=== PATIENT | male | born 1945 | race Caucasian/White ===

== ENCOUNTER 2020-07-05 10:22 | Observation (INO) | payer MEDICARE ==
--- NOTE | 2020-07-05 10:57 | ED ---
ENT HPI - General Chief complaint: ENT Stated complaint: esophagus issues Time Seen by Provider: 07/05/20 10:31 Source: patient Mode of arrival: ambulatory Limitations: no limitations - History of Present Illness Initial comments: 75-year-old male status history of alchlasia, HTN, PE on coumadin presenting today for chief complaint of difficulty swallowing both solids and liquids. Patient states he had been treated for GERD in 2016 and had an upper endoscopy performed by Dr. Bianchi who dilated the GE patietn states he remember he was hospitalized secondary to not being able to eat for 6 days following the surgery-- he was then referred to Dr. Edwards in [place] who diagnosed her with achalasia an underwent a robotic procedure which they are unsure of the name of the procedure. They are not sure of the hospital where he was treated at. He states since that surgery he has been able to swallow liquids and solid just fine. For the past 3.5 weeks he has had issues with both solids and liquids. he states he has regurgitated a week old piece of steak before, he now is drinking nutritional shakes which he states at times he has been able to hold down a small portion of the shake. Patient denies fevers, chest pain, SOB, abdominal pain, vomiting, diarrhea. Admits to regurgitating food and concern that he is becoming dehydarted. Patient has no additional complaints. Patient appears well on arrival no acute distress. - Related Data Home Medications Medication Instructions Recorded Confirmed Furosemide [Lasix] 20 mg PO BID 02/25/14 07/05/20 Tamsulosin [Flomax] 0.4 mg PO BID 02/25/14 07/05/20 lisinopriL 40 mg PO QAM 05/13/15 07/05/20 Warfarin Sodium [Coumadin] 2 mg PO DAILY 10/13/16 07/05/20 Dutasteride 0.5 mg PO DAILY@1200 07/05/20 07/05/20 Metoclopramide [Reglan] 5 mg PO ACHS 07/05/20 07/05/20 Mirabegron [Myrbetriq] 50 mg PO DAILY 07/05/20 07/05/20 Tolterodine ER [Detrol LA] 4 mg PO DAILY 07/05/20 07/05/20 Previous Rx's Medication Instructions Recorded HYDROcodone/APAP 7.5-325MG [[place] 1 tab PO Q6HR PRN #28 tab 10/11/16 7.5-325] Allergies Allergy/AdvReac Type Severity Reaction Status Date / Time ciprofloxacin [From Cipro] Allergy Rash/Hives Verified 07/05/20 11:45 ciprofloxacin HCl Allergy Rash/Hives Verified 07/05/20 11:45 [From Cipro] Review of Systems ROS Statement: Those systems with pertinent positive or pertinent negative responses have been documented in the HPI. ROS Other: All systems not noted in ROS Statement are negative. Past Medical History Past Medical History: Atrial Fibrillation, Cancer, Eye Disorder, GERD/Reflux, Hearing Disorder / Deafness, Hypertension, Osteoarthritis (OA), Pulmonary Embolus (PE), Skin Disorder Additional Past Medical History / Comment(s): Hx Colon RESECTION FOR MASS. Skin Cancer. HIATAL HERNIA. HAS LENS IMPLANTS AHMET EYES. History of Any Multi-Drug Resistant Organisms: None Reported Past Surgical History: Appendectomy, Back Surgery, Bowel Resection, Hernia Repair, Joint Replacement Additional Past Surgical History / Comment(s): REVISION TOTAL LT HIP. AHMET KNEES & HIPS REPLACEMENTS. Fusion of lower back, neck fusion. BOWEL RES: PRECANCEROUS MASS. AHMET. cataracts. Ahmet leg LASER VEIN SURG. Removal of skin cancer from scalp and chest. surgery for fx nose. rt shoulder rotator cuff. EGD X2, LAST 08/2016.10-11-16 BROCK FUNDOPLICATION Past Anesthesia/Blood Transfusion Reactions: No Reported Reaction Past Psychological History: No Psychological Hx Reported Smoking Status: Never smoker Past Alcohol Use History: Occasional Past Drug Use History: None Reported - Past Family History Sister(s) Family Medical History: Cancer Mother Family Medical History: Cancer Additional Family Medical History / Comment(s): BLADDER Father Family Medical History: Cancer Additional Family Medical History / Comment(s): LEUKEMIA Brother(s) Family Medical History: Cancer Additional Family Medical History / Comment(s): MULTIPLE MYELOMA General Exam - General Exam Comments Initial Comments: General: The patient is awake and alert, in no distress Eye: Pupils are equal, round and reactive to light, extra-ocular movements are intact. No nystagmus. There is normal conjunctiva bilaterally. No signs of icterus. Ears, nose, mouth and throat: There are moist mucous membranes and no oral lesions. Neck: The neck is supple, there is no tenderness or JVD. Cardiovascular: There is a regular rate and rhythm. No murmur, rub or gallop is appreciated. Respiratory: Lungs are clear to auscultation, respirations are non-labored, breath sounds are equal. No wheezes, stridor, rales, or rhonchi. Gastrointestinal: Soft, non-distended, non-tender abdomen without masses or organomegaly noted. There is no rebound or guarding present. Musculoskeletal: Normal ROM, no tenderness. Strength 5/5. Sensation intact. Radial pulses equal bilaterally 2+. Neurological: A&O x 3. CN II-XII intact grossly, There are no obvious motor or sensory deficits. Coordination appears grossly intact. Speech is normal. Skin: Skin is warm and dry and no rashes or lesions are noted. Psychiatric: Cooperative, appropriate mood & affect, normal judgment. Limitations: no limitations Course Vital Signs 07/05/20 07/05/20 07/05/20 10:23 12:35 12:52 Temperature 98 F Pulse Rate 65 56 L 56 L Respiratory 18 18 18 Rate Blood Pressure 175/89 135/63 O2 Sat by Pulse 96 97 100 Oximetry Medical Decision Making - Medical Decision Making 75-year-old male presenting for dysphasia. Patient's history of achalasia. Patient has robotic procedure 4 years ago that seemed to help. New symptoms x 3 weeks. Patient labs reveal mild hypokalemia and an elevated INR. Denies bleeding, or dark stools. Ptaient given IVF and replaced K+ via IV since unable to tolerate PO (order changed). Patient case discussed with Dr Vega who is agreeable to admission to medicine with surgical consult. Ptaient agreeable and prefers admission at this time. - Lab Data Result diagrams: 07/05/20 11:07 07/05/20 11:07 Lab Results 07/05/20 07/05/20 07/05/20 Range/Units 11:07 11:07 11:07 WBC 11.0 H (3.8-10.6) k/uL RBC 5.12 (4.30-5.90) m/uL Hgb 15.2 (13.0-17.5) gm/dL Hct 48.1 (39.0-53.0) % MCV 93.8 (80.0-100.0) fL MCH 29.7 (25.0-35.0) pg MCHC 31.7 (31.0-37.0) g/dL RDW 13.3 (11.5-15.5) % Plt Count 271 (150-450) k/uL Neutrophils % 75 % Lymphocytes % 16 % Monocytes % 5 % Eosinophils % 2 % Basophils % 1 % Neutrophils # 8.2 H (1.3-7.7) k/uL Lymphocytes # 1.7 (1.0-4.8) k/uL Monocytes # 0.5 (0-1.0) k/uL Eosinophils # 0.2 (0-0.7) k/uL Basophils # 0.1 (0-0.2) k/uL PT 65.5 H (9.0-12.0) sec INR 6.4 H* (<1.2) APTT 45.0 H (22.0-30.0) sec Sodium 138 (137-145) mmol/L Potassium 3.3 L (3.5-5.1) mmol/L Chloride 95 L (98-107) mmol/L Carbon Dioxide 33 H (22-30) mmol/L Anion Gap 10 mmol/L BUN 17 (9-20) mg/dL Creatinine 1.13 (0.66-1.25) mg/dL Est GFR (CKD-EPI)AfAm 72 (>60 ml/min/1.73 sqM) Est GFR (CKD-EPI)NonAf 63 (>60 ml/min/1.73 sqM) Glucose 99 (74-99) mg/dL Calcium 10.0 (8.4-10.2) mg/dL Total Bilirubin 1.5 H (0.2-1.3) mg/dL AST 29 (17-59) U/L ALT 14 (4-49) U/L Alkaline Phosphatase 149 H (38-126) U/L Total Protein 7.4 (6.3-8.2) g/dL Albumin 4.3 (3.5-5.0) g/dL Disposition Clinical Impression: Achalasia, Regurgitation of food, Hypokalemia, Supratherapeutic INR Disposition: ADMITTED IP TO THIS [facility] Condition: Stable Is patient prescribed a controlled substance at d/c from ED?: No Time of Disposition: 11:51 Decision to Admit Reason: Admit from EC Decision Date: 07/05/20 Decision Time: 11:51
[2020-07-05] MEDS ORDERED: SODIUM CHLORIDE 0.9% 500 ML 500 ML IV ONE (11:03)
[2020-07-05] MEDS: SODIUM CHLORIDE 0.9% 1,000 ML IV SCH ×2 (11:10→23:23)
[2020-07-05 11:18] LABS: HCT 48.1 % (39.0-53.0); HGB 15.2 gm/dL (13.0-17.5); MCH 29.7 pg (25.0-35.0); MCHC 31.7 g/dL (31.0-37.0); MCV 93.8 fL (80.0-100.0); Platelet Count 271 k/uL (150-450); RBC 5.12 m/uL (4.30-5.90); RDW 13.3 % (11.5-15.5)
[2020-07-05 11:19] LABS: Basophils # (A) 0.1 k/uL (0-0.2); Basophils % (A) 1 %; Eosinophils # (A) 0.2 k/uL (0-0.7); Eosinophils % (A) 2 %; Lymphocytes # (A) 1.7 k/uL (1.0-4.8); Lymphocytes % (A) 16 %; Monocytes # (A) 0.5 k/uL (0-1.0); Monocytes % (A) 5 %; Neutrophils # (A) 8.2 k/uL (1.3-7.7); Neutrophils % (A) 75 %
[2020-07-05 11:32] LABS: Albumin 4.3 g/dL (3.5-5.0); Potassium 3.3 mmol/L (3.5-5.1); Total Bilirubin 1.5 mg/dL (0.2-1.3); Total Protein 7.4 g/dL (6.3-8.2)
[2020-07-05] MEDS ORDERED: POTASSIUM CHLORIDE ER 10 MEQ TAB.ER.PRT PO STA (11:44)
[2020-07-05] MEDS ORDERED: NALOXONE 0.4 MG/ML 1 ML VIAL IV PRN (11:45)
[2020-07-05] MEDS ORDERED: POTASSIUM CHLORIDE 20 MEQ in WATER FOR INJECTION 1 100ML.BAG IVPB STA (12:10)
[2020-07-05 12:26] LABS: Prothrombin Time 65.5 sec (9.0-12.0)
[2020-07-05 12:30] LABS: INR 6.4 (<1.2)
[2020-07-05] MEDS ORDERED: ENALAPRILAT 1.25 MG/ML 1 ML VIAL IVP PRN (17:00)
[2020-07-05] MEDS ORDERED: HYDROcodone/APAP 7.5-325MG 1 EACH TAB PO PRN (17:04)
[2020-07-05] MEDS ORDERED: FUROSEMIDE 20 MG TAB PO SCH (18:00)
[2020-07-06 06:16] LABS: Prothrombin Time 64.7 sec (9.0-12.0)
[2020-07-06 06:19] LABS: ALT 11 U/L (4-49); AST 22 U/L (17-59); African American GFR (CKD) >90 (>60 ml/min/1.73 sqM); Albumin 3.5 g/dL (3.5-5.0); Alkaline Phosphatase 114 U/L (38-126); Anion Gap 9 mmol/L; Blood Urea Nitrogen 14 mg/dL (9-20); Calcium 9.1 mg/dL (8.4-10.2); Carbon Dioxide 26 mmol/L (22-30); Chloride 103 mmol/L (98-107); Glucose 75 mg/dL (74-99); Non-African American GFR(CKD) 84 (>60 ml/min/1.73 sqM); Potassium 3.2 mmol/L (3.5-5.1); Sodium 138 mmol/L (137-145); Total Bilirubin 1.3 mg/dL (0.2-1.3); Total Protein 6.1 g/dL (6.3-8.2)
[2020-07-06 06:33] LABS: INR 6.4 (<1.2)
[2020-07-06] MEDS ORDERED: Potassium Replacement Protocol 1 EACH MISC MISCELLANE PRN ×2 (06:41→08:00)
--- NOTE | 2020-07-06 07:59 | P.HPIM ---
History of Present Illness H&P Date: 07/06/20 Chief Complaint: Dysphagia This is a history of physical 75-year-old white male with known history of dysphagia for the last several weeks. He saw me last week and was scheduled for evaluation by general surgery but comes in yesterday stating that he is unable to tolerate solid food at all. His oral medication has not been tolerated either area and he can tolerate liquids. Hilary tosha has been tolerated. There is been significant weight loss over the last 3-4 weeks. He is admitted for appropriate evaluation. General surgery has not been consulted and I had a discussion with them as far as appropriate treatment. He is supposed had myotomy about 5 years ago done supposedly robotically. We will go ahead and consult thoracic surgery for possible evaluation. No fever or chills. No significant hematemesis or hematochezia. Regurgitation is otherwise noted. Ot herwise, he has an underlying history of atrial fibrillation. Coumadin level/INR is supratherapeutic. Review of Systems Constitutional: Denies chills, Denies fever Eyes: denies blurred vision, denies pain Ears, nose, mouth and throat: Denies headache, Denies sore throat Cardiovascular: Denies chest pain, Denies shortness of breath Gastrointestinal: Reports as per HPI Musculoskeletal: Denies myalgias Integumentary: Denies pruritus, Denies rash Psychiatric: Denies anxiety, Denies depression Past Medical History Past Medical History: Atrial Fibrillation, Cancer, Eye Disorder, GERD/Reflux, Hearing Disorder / Deafness, Hypertension, Osteoarthritis (OA), Pulmonary Embolus (PE), Skin Disorder Additional Past Medical History / Comment(s): Hx Colon RESECTION FOR MASS. Skin Cancer. HIATAL HERNIA. HAS LENS IMPLANTS SARAI EYES. History of Any Multi-Drug Resistant Organisms: None Reported Past Surgical History: Appendectomy, Back Surgery, Bowel Resection, Hernia Repa ir, Joint Replacement Additional Past Surgical History / Comment(s): REVISION TOTAL LT HIP. SARAI KNEES & HIPS REPLACEMENTS. Fusion of lower back, neck fusion. BOWEL RES: PRE CANCEROUS MASS. SARAI. cataracts. Sarai leg LASER VEIN SURG. Removal of skin cancer from scalp and chest. surgery for fx nose. rt shoulder rotator cuff. EGD X2, LAST 08/2016.10-11-16 BROCK FUNDOPLICATION Past Anesthesia/Blood Transfusion Reactions: No Reported Reaction Past Psychological History: No Psychological Hx Reported Smoking Status: Never smoker Past Alcohol Use History: Occasional Past Drug Use History: None Reported - Past Family History Sister(s) Family Medical History: Cancer Mother Family Medical History: Cancer Additional Family Medical History / Comment(s): BLADDER Father Family Medical History: Cancer Additional Family Medical History / Comment(s): LEUKEMIA Brother(s) Family Medical History: Cancer Additional Family Medical History / Comment(s): MULTIPLE MYELOMA Medications and Allergies Home Medications Medication Instructions Recorded Confirmed Type Furosemide [Lasix] 20 mg PO BID 02/25/14 07/05/20 History Tamsulosin [Flomax] 0.4 mg PO BID 02/25/14 07/05/20 History lisinopriL 40 mg PO QAM 05/13/15 07/05/20 History HYDROcodone/APAP 7.5-325MG [[place] 1 tab PO Q6HR PRN #28 tab 10/11/16 07/05/20 Rx 7.5-325] Warfarin Sodium [Coumadin] 2 mg PO DAILY 10/13/16 07/05/20 History Dutasteride 0.5 mg PO DAILY@1200 07/05/20 07/05/20 History Metoclopramide [Reglan] 5 mg PO ACHS 07/05/20 07/05/20 History Mirabegron [Myrbetriq] 50 mg PO DAILY 07/05/20 07/05/20 History Tolterodine ER [Detrol LA] 4 mg PO DAILY 07/05/20 07/05/20 History Allergies Allergy/AdvReac Type Severity Reaction Status Date / Time ciprofloxacin [From Cipro] Allergy Rash/Hives Verified 07/05/20 11:45 ciprofloxacin HCl Allergy Rash/Hives Verified 07/05/20 11:45 [From Cipro] Physical Exam Vitals: Vital Signs Temp Pulse Pulse Pulse Pulse Resp BP 07/06/20 03:00 98.1 F 62 18 07/05/20 21:00 97.8 F 67 67 18 07/05/20 14:28 98.1 F 62 16 07/05/20 13:39 62 18 07/05/20 13:26 98.1 F 76 16 07/05/20 12:52 56 L 18 135/63 07/05/20 12:35 56 L 18 07/05/20 10:23 98 F 65 18 175/89 BP Pulse Ox 07/06/20 03:00 178/82 97 07/05/20 21:00 159/87 98 07/05/20 14:28 162/97 98 07/05/20 13:39 07/05/20 13:26 96 07/05/20 12:52 100 07/05/20 12:35 97 07/05/20 10:23 96 Intake and Output 07/05/20 07/06/20 07/06/20 22:59 06:59 14:59 Intake Total 760 600 Balance 760 600 Intake: Intake, IV Titration 700 600 Amount Potassium Chloride 20 meq 100 In Water For Injection 1 100ml.bag @ 50 mls/hr IVPB ONCE STA Rx#: [id number] Sodium Chloride 0.9% 1, 600 600 000 ml @ 75 mls/hr IV . [id number] Rx#:[id number] Oral 60 0 Other: Voiding Method Toilet Toilet # Voids 1 1 Results CBC & Chem 7: 07/05/20 11:07 07/06/20 05:28 Labs: Abnormal Lab Results - Last 24 Hours (Table) 07/05/20 07/05/20 07/05/20 Range/Units 11:07 11:07 11:07 WBC 11.0 H (3.8-10.6) k/uL Neutrophils # 8.2 H (1.3-7.7) k/uL PT 65.5 H (9.0-12.0) sec INR 6.4 H* (<1.2) APTT 45.0 H (22.0-30.0) sec Potassium 3.3 L (3.5-5.1) mmol/L Chloride 95 L (98-107) mmol/L Carbon Dioxide 33 H (22-30) mmol/L Total Bilirubin 1.5 H (0.2-1.3) mg/dL Alkaline Phosphatase 149 H (38-126) U/L Total Protein (6.3-8.2) g/dL 07/06/20 07/06/20 Range/Units 05:28 05:28 WBC (3.8-10.6) k/uL Neutrophils # (1.3-7.7) k/uL PT 64.7 H (9.0-12.0) sec INR 6.4 H* (<1.2) APTT (22.0-30.0) sec Potassium 3.2 L (3.5-5.1) mmol/L Chloride (98-107) mmol/L Carbon Dioxide (22-30) mmol/L Total Bilirubin (0.2-1.3) mg/dL Alkaline Phosphatase (38-126) U/L Total Protein 6.1 L (6.3-8.2) g/dL Thrombosis Risk Factor Assmnt - Choose All That Apply Any of the Below Risk Factors Present?: Yes Each Factor Represents 1 point: Age 41-60 years Other Risk Factors: Yes Each Risk Factor Represents 2 Points: Age 61-74 years Each Risk Factor Represents 3 Points: Age 75 years or older Thrombosis Risk Factor Assessment Total Risk Factor Score: 6 Thrombosis Risk Factor Assessment Level: High Risk Assessment and Plan (1) Achalasia Current Visit: Yes Status: Acute Code(s): K22.0 - ACHALASIA OF CARDIA SNOMED Code(s): 37477492 (2) Regurgitation of food Current Visit: Yes Status: Acute Code(s): R11.10 - VOMITING, UNSPECIFIED SNOMED Code(s): 565465478 (3) Supratherapeutic INR Current Visit: Yes Status: Acute Code(s): R79.1 - ABNORMAL COAGULATION PROFILE SNOMED Code(s): 472103768 (4) Atrial fibrillation Current Visit: No Status: Acute Code(s): I48.91 - UNSPECIFIED ATRIAL FIBRILLATION SNOMED Code(s): 90880379 (5) Gastroesophageal reflux disease with esophagitis Current Visit: No Status: Acute Code(s): K21.0 - GASTRO-ESOPHAGEAL REFLUX DISEASE WITH ESOPHAGITIS SNOMED Code(s): 714642686 (6) History of pulmonary embolus (PE) Current Visit: No Status: Acute Code(s): Z86.711 - PERSONAL HISTORY OF PULMONARY EMBOLISM SNOMED Code(s): 266154195 Plan: Reconcile home medications and possibly switch to IV formulation secondary to achalasia. Check CBC CMP and PT/INR in a.m. Appreciate surgical input. Consult thoracic surgery. Prognosis is guarded secondary to his multiple comorbidities. See orders otherwise. Time with Patient: Greater than 30
[2020-07-06] MEDS ORDERED: ENALAPRILAT 1.25 MG/ML 1 ML VIAL IVP PRN (08:00)
--- NOTE | 2020-07-06 08:06 | P.GSCN ---
History of Present Illness Consult date: 07/06/20 History of present illness: 75-year-old male presents to the hospital with complaints of inability to tolerate solid or liquid oral intake. He states that this started approximately one month ago and has worsened. He states that approximately 4 years ago, he was diagnosed with achalasia. On examination of the patient's hospital records, it does appear that the patient did have a Heather fundoplication performed approximately 4 years ago and had multiple issues since that time requiring dilation and revision. He states after those issues, he sought care elsewhere and was diagnosed with achalasia. He states that he did undergo a procedure by a Dr. Moran that he does not recall but believes was robotic. He has tried to get in contact with Dr. Moran, however does not believe that he practices in the state anymore. He states that he has been unable to tolerate oral intake of solid foods and feels as if the food gets stuck and it is coughed up. He states liquid intake is similar, however he is able to tolerate shannon tosha and nutritional supplements. However, he has admitted to losing weight recently. He denies any significant changes in bowel function. He denies any fevers, chills, chest pain or shortness of breath. Review of Systems All systems: negative Past Medical History Past Medical History: Atrial Fibrillation, Cancer, Eye Disorder, GERD/Reflux, Hearing Disorder / Deafness, Hypertension, Osteoarthritis (OA), Pulmonary Embolus (PE), Skin Disorder Additional Past Medical History / Comment(s): Hx Colon RESECTION FOR MASS. Skin Cancer. HIATAL HERNIA. HAS LENS IMPLANTS SARAI EYES. History of Any Multi-Drug Resistant Organisms: None Reported Past Surgical History: Appendectomy, Back Surgery, Bowel Resection, Hernia Repair, Joint Replacement Additional Past Surgical History / Comment(s): REVISION TOTAL LT HIP. SARAI KNEES & HIPS REPLACEMENTS. Fusion of lower back, neck fusion. BOWEL RES: PRECANCEROUS MASS. SARAI. cataracts. Sarai leg LASER VEIN SURG. Removal of skin cancer from scalp and chest. surgery for fx nose. rt shoulder rotator cuff. EGD X2, LAST 08/2016.10-11-16 HEATHER FUNDOPLICATION Past Anesthesia/Blood Transfusion Reactions: No Reported Reaction Past Psychological History: No Psychological Hx Reported Smoking Status: Never smoker Past Alcohol Use History: Occasional Past Drug Use History: None Reported - Past Family History Sister(s) Family Medical History: Cancer Mother Family Medical History: Cancer Additional Family Medical History / Comment(s): BLADDER Father Family Medical History: Cancer Additional Family Medical History / Comment(s): LEUKEMIA Brother(s) Family Medical History: Cancer Additional Family Medical History / Comment(s): MULTIPLE MYELOMA Medications and Allergies Home Medications Medication Instructions Recorded Confirmed Type Furosemide [Lasix] 20 mg PO BID 02/25/14 07/05/20 History Tamsulosin [Flomax] 0.4 mg PO BID 02/25/14 07/05/20 History lisinopriL 40 mg PO QAM 05/13/15 07/05/20 History HYDROcodone/APAP 7.5-325MG [[place] 1 tab PO Q6HR PRN #28 tab 10/11/16 07/05/20 Rx 7.5-325] Warfarin Sodium [Coumadin] 2 mg PO DAILY 10/13/16 07/05/20 History Dutasteride 0.5 mg PO DAILY@1200 07/05/20 07/05/20 History Metoclopramide [Reglan] 5 mg PO ACHS 07/05/20 07/05/20 History Mirabegron [Myrbetriq] 50 mg PO DAILY 07/05/20 07/05/20 History Tolterodine ER [Detrol LA] 4 mg PO DAILY 07/05/20 07/05/20 History Allergies Allergy/AdvReac Type Severity Reaction Status Date / Time ciprofloxacin [From Cipro] Allergy Rash/Hives Verified 07/05/20 11:45 ciprofloxacin HCl Allergy Rash/Hives Verified 07/05/20 11:45 [From Cipro] Surgical - Exam Osteopathic Statement: *. No significant issues noted on an osteopathic structural exam other than those noted in the History and Physical/Consult. Vital Signs Temp Pulse Resp BP Pulse Ox 98 F 65 18 175/89 96 07/05/20 10:23 07/05/20 10:23 07/05/20 10:23 07/05/20 10:23 07/05/20 10:23 - General well nourished, no distress - Eyes PERRL - ENT no hearing loss - Neck trachea midline - Respiratory normal respiratory effort - Abdomen Soft, nontender, nondistended, no rebound, no guarding - Psychiatric oriented to time, oriented to person, oriented to place Results - Labs 07/05/20 11:07 07/06/20 05:28 Abnormal Lab Results - Last 24 Hours (Table) 07/05/20 07/05/20 07/05/20 Range/Units 11:07 11:07 11:07 WBC 11.0 H (3.8-10.6) k/uL Neutrophils # 8.2 H (1.3-7.7) k/uL PT 65.5 H (9.0-12.0) sec INR 6.4 H* (<1.2) APTT 45.0 H (22.0-30.0) sec Potassium 3.3 L (3.5-5.1) mmol/L Chloride 95 L (98-107) mmol/L Carbon Dioxide 33 H (22-30) mmol/L Total Bilirubin 1.5 H (0.2-1.3) mg/dL Alkaline Phosphatase 149 H (38-126) U/L Total Protein (6.3-8.2) g/dL 07/06/20 07/06/20 Range/Units 05:28 05:28 WBC (3.8-10.6) k/uL Neutrophils # (1.3-7.7) k/uL PT 64.7 H (9.0-12.0) sec INR 6.4 H* (<1.2) APTT (22.0-30.0) sec Potassium 3.2 L (3.5-5.1) mmol/L Chloride (98-107) mmol/L Carbon Dioxide (22-30) mmol/L Total Bilirubin (0.2-1.3) mg/dL Alkaline Phosphatase (38-126) U/L Total Protein 6.1 L (6.3-8.2) g/dL Diabetes panel 07/05/20 07/06/20 Range/Units 11:07 05:28 Sodium 138 138 (137-145) mmol/L Potassium 3.3 L 3.2 L (3.5-5.1) mmol/L Chloride 95 L 103 (98-107) mmol/L Carbon Dioxide 33 H 26 (22-30) mmol/L BUN 17 14 (9-20) mg/dL Creatinine 1.13 0.86 (0.66-1.25) mg/dL Glucose 99 75 (74-99) mg/dL Calcium 10.0 9.1 (8.4-10.2) mg/dL AST 29 22 (17-59) U/L ALT 14 11 (4-49) U/L Alkaline Phosphatase 149 H 114 (38-126) U/L Total Protein 7.4 6.1 L (6.3-8.2) g/dL Albumin 4.3 3.5 (3.5-5.0) g/dL Calcium panel 07/05/20 07/06/20 Range/Units 11:07 05:28 Calcium 10.0 9.1 (8.4-10.2) mg/dL Albumin 4.3 3.5 (3.5-5.0) g/dL Pituitary panel 07/05/20 07/06/20 Range/Units 11: 05:28 Sodium 138 138 (137-145) mmol/L Potassium 3.3 L 3.2 L (3.5-5.1) mmol/L Chloride 95 L 103 (98-107) mmol/L Carbon Dioxide 33 H 26 (22-30) mmol/L BUN 17 14 (9-20) mg/dL Creatinine 1.13 0.86 (0.66-1.25) mg/dL Glucose 99 75 (74-99) mg/dL Calcium 10.0 9.1 (8.4-10.2) mg/dL Adrenal panel 07/05/20 07/06/20 Range/Units 11:07 05:28 Sodium 138 138 (137-145) mmol/L Potassium 3.3 L 3.2 L (3.5-5.1) mmol/L Chloride 95 L 103 (98-107) mmol/L Carbon Dioxide 33 H 26 (22-30) mmol/L BUN 17 14 (9-20) mg/dL Creatinine 1.13 0.86 (0.66-1.25) mg/dL Glucose 99 75 (74-99) mg/dL Calcium 10.0 9.1 (8.4-10.2) mg/dL Total Bilirubin 1.5 H 1.3 (0.2-1.3) mg/dL AST 29 22 (17-59) U/L ALT 14 11 (4-49) U/L Alkaline Phosphatase 149 H 114 (38-126) U/L Total Protein 7.4 6.1 L (6.3-8.2) g/dL Albumin 4.3 3.5 (3.5-5.0) g/dL Assessment and Plan (1) Achalasia Narrative/Plan: Achalasia diagnosis is based on patient's history. There is no confirmed testing in this institution that proves this diagnosis. Apparently, he has received treatment via a surgical procedure for the achalasia. He does not recall whether the procedure was noted as a myotomy. He also does have a history of Heather fundoplication with multiple issues after that procedure requiring dilation and revision. Based on these findings and previous diagnosis of achalasia, I would recommend evaluation by thoracic surgery and possible evaluation by advanced GI. The case was discussed in depth with the patient and the patient's primary care physician, Dr. Escobar. Current Visit: Yes Status: Acute Code(s): K22.0 - ACHALASIA OF CARDIA SNOMED Code(s): 98312036
[2020-07-06] MEDS: FUROSEMIDE 10 MG/ML 2 ML VIAL IV SCH (08:33)
[2020-07-06] MEDS: POTASSIUM CHLORIDE 10 MEQ in WATER FOR INJECTION 1 100ML.BAG IVPB SCH ×4 (08:34→11:38)
[2020-07-06] MEDS: OXYBUTYNIN XL 5 MG TAB.ER.24 PO SCH (08:34)
[2020-07-06] MEDS: NON FORMULARY DRUG (Mirabegron [Myrbetriq] 50 MG) PO SCH (08:34)
[2020-07-06] MEDS: lisinopriL 20 MG TAB PO SCH ×2 (08:34→20:10)
[2020-07-06] MEDS ORDERED: FINASTERIDE 5 MG TAB PO SCH (12:00)
--- NOTE | 2020-07-06 12:35 | P.GSCN ---
History of Present Illness Consult date: 07/06/20 Reason for Consult: Dysphagia History of present illness: Several years ago this patient suffered from dysphagia. He had a couple of progressive dilatations without improvement. He then underwent a dilatation with Heather fundoplication laparoscopically. He had severe dysphagia postoperatively. He was then returned to the operating room and the fundoplication was taken down. Shortly thereafter he sought treatment by a Dr. Jun Moran. This physician diagnosed him with achalasia and did an endoscopic correction which I suspect to be a high volume balloon dilatation. In the last month he has recurred his severe dysphagia. Review of Systems All systems: negative - Cardiovascular Reports irregular heart beat - Genitourinary Genitourinary Comment(s): See chief complaint - Musculoskeletal Musculoskeleta Comment(s): Numerous orthopedic complaints - Neurological Reports tremors - Hematologic/Lymphatic Hematologic/Lymphatic Comment(s): On anticoagulants for A. fib Past Medical History Past Medical History: Atrial Fibrillation, Cancer, Eye Disorder, GERD/Reflux, Hearing Disorder / Deafness, Hypertension, Osteoarthritis (OA), Pulmonary Embolus (PE), Skin Disorder Additional Past Medical History / Comment(s): Hx Colon RESECTION FOR MASS. Skin Cancer. HIATAL HERNIA. HAS LENS IMPLANTS SARAI EYES. History of Any Multi-Drug Resistant Organisms: None Reported Past Surgical History: Appendectomy, Back Surgery, Bowel Resection, Hernia Repair, Joint Replacement Additional Past Surgical History / Comment(s): REVISION TOTAL LT HIP. SARAI KNEES & HIPS REPLACEMENTS. Fusion of lower back, neck fusion. BOWEL RES: PRECANCEROUS MASS. SARAI. cataracts. Sarai leg LASER VEIN SURG. Removal of skin cancer from scalp and chest. surgery for fx nose. rt shoulder rotator cuff. EGD X2, LAST 08/2016.10-11-16 HEATHER FUNDOPLICATION Past Anesthesia/Blood Transfusion Reactions: No Reported Reaction Past Psychological History: No Psychological Hx Reported Smoking Status: Never smoker Past Alcohol Use History: Occasional Past Drug Use History: None Reported - Past Family History Sister(s) Family Medical History: Cancer Mother Family Medical History: Cancer Additional Family Medical History / Comment(s): BLADDER Father Family Medical History: Cancer Additional Family Medical History / Comment(s): LEUKEMIA Brother(s) Family Medical History: Cancer Additional Family Medical History / Comment(s): MULTIPLE MYELOMA Medications and Allergies Home Medications Medication Instructions Recorded Confirmed Type Furosemide [Lasix] 20 mg PO BID 02/25/14 07/05/20 History Tamsulosin [Flomax] 0.4 mg PO BID 02/25/14 07/05/20 History lisinopriL 40 mg PO QAM 05/13/15 07/05/20 History HYDROcodone/APAP 7.5-325MG [[place] 1 tab PO Q6HR PRN #28 tab 10/11/16 07/05/20 Rx 7.5-325] Warfarin Sodium [Coumadin] 2 mg PO DAILY 10/13/16 07/05/20 History Dutasteride 0.5 mg PO DAILY@1200 07/05/20 07/05/20 History Metoclopramide [Reglan] 5 mg PO ACHS 07/05/20 07/05/20 History Mirabegron [Myrbetriq] 50 mg PO DAILY 07/05/20 07/05/20 History Tolterodine ER [Detrol LA] 4 mg PO DAILY 07/05/20 07/05/20 History Allergies Allergy/AdvReac Type Severity Reaction Status Date / Time ciprofloxacin [From Cipro] Allergy Rash/Hives Verified 07/05/20 11:45 ciprofloxacin HCl Allergy Rash/Hives Verified 07/05/20 11:45 [From Cipro] Surgical - Exam Osteopathic Statement: *. No significant issues noted on an osteopathic structural exam other than those noted in the History and Physical/Consult. Vital Signs Temp Pulse Resp BP Pulse Ox 98 F 65 18 175/89 96 07/05/20 10:23 07/05/20 10:23 07/05/20 10:23 07/05/20 10:23 07/05/20 10:23 - General well developed, well nourished, no distress - Eyes normal ocular movement, no icteric - ENT no hearing loss, no congestion - Neck no masses, trachea midline - Respiratory normal respiratory effort, clear to auscultation - Cardiovascular Rhythm: irregularly irregular - Abdomen Abdomen: soft, non tender, no guarding, no rigid, no rebound - Integumentary no rash, no abnormal pigmentation - Neurologic Patient has a fine resting tremor no disoriented, no combative - Psychiatric oriented to time, oriented to person, oriented to place, speech is normal, memory intact Results - Labs 07/05/20 11:07 07/06/20 05:28 Abnormal Lab Results - Last 24 Hours (Table) 07/05/20 07/06/20 07/06/20 Range/Units 11:07 05:28 05:28 PT 65.5 H 64.7 H (9.0-12.0) sec INR 6.4 H* 6.4 H* (<1.2) APTT 45.0 H (22.0-30.0) sec Potassium 3.2 L (3.5-5.1) mmol/L Total Protein 6.1 L (6.3-8.2) g/dL Diabetes panel 07/06/20 Range/Units 05:28 Sodium 138 (137-145) mmol/L Potassium 3.2 L (3.5-5.1) mmol/L Chloride 103 (98-107) mmol/L Carbon Dioxide 26 (22-30) mmol/L BUN 14 (9-20) mg/dL Creatinine 0.86 (0.66-1.25) mg/dL Glucose 75 (74-99) mg/dL Calcium 9.1 (8.4-10.2) mg/dL AST 22 (17-59) U/L ALT 11 (4-49) U/L Alkaline Phosphatase 114 (38-126) U/L Total Protein 6.1 L (6.3-8.2) g/dL Albumin 3.5 (3.5-5.0) g/dL Calcium panel 07/06/20 Range/Units 05:28 Calcium 9.1 (8.4-10.2) mg/dL Albumin 3.5 (3.5-5.0) g/dL Pituitary panel 07/06/20 Range/Units 05:28 Sodium 138 (137-145) mmol/L Potassium 3.2 L (3.5-5.1) mmol/L Chloride 103 (98-107) mmol/L Carbon Dioxide 26 (22-30) mmol/L BUN 14 (9-20) mg/dL Creatinine 0.86 (0.66-1.25) mg/dL Glucose 75 (74-99) mg/dL Calcium 9.1 (8.4-10.2) mg/dL Adrenal panel 07/06/20 Range/Units 05:28 Sodium 138 (137-145) mmol/L Potassium 3.2 L (3.5-5.1) mmol/L Chloride 103 (98-107) mmol/L Carbon Dioxide 26 (22-30) mmol/L BUN 14 (9-20) mg/dL Creatinine 0.86 (0.66-1.25) mg/dL Glucose 75 (74-99) mg/dL Calcium 9.1 (8.4-10.2) mg/dL Total Bilirubin 1.3 (0.2-1.3) mg/dL AST 22 (17-59) U/L ALT 11 (4-49) U/L Alkaline Phosphatase 114 (38-126) U/L Total Protein 6.1 L (6.3-8.2) g/dL Albumin 3.5 (3.5-5.0) g/dL Assessment and Plan (1) Dysphagia Current Visit: Yes Status: Acute Code(s): R13.10 - DYSPHAGIA, UNSPECIFIED SNOMED Code(s): 08920937 (2) Achalasia of cardia Current Visit: Yes Status: Acute Code(s): K22.0 - ACHALASIA OF CARDIA SNOMED Code(s): 67313557 Plan: I discussed options with the patient. He has located Dr. Moran and we will consider a return visit with him. I have suggested the possibility of a limited dilatation to alleviate the initial symptoms. This he does not wish to do. I have discussed the various long-term treatment options which would either be a repeat large volume balloon dilatation as done previously. I discussed with him the significant risk for rupture with these procedures. We discussed the possibility of essentially permanent stent. I also discussed with him the potential for open surgical myotomy which today can potentially be done lap aroscopically, although his previous surgical history we will make this somewhat challenging. If he does not connect with Dr. Moran I would recommend referral to either [facility] or [facility] for there unique extensive experience with esophageal surgery.
[2020-07-06] MEDS: METOCLOPRAMIDE 5 MG TAB PO SCH ×2 (17:14→20:11)
[2020-07-06] MEDS: SODIUM CHLORIDE 0.9% 1,000 ML IV SCH (17:14)
[2020-07-06] MEDS: TAMSULOSIN 0.4 MG CAP.ER.24H PO SCH (20:10)
[2020-07-07] MEDS: SODIUM CHLORIDE 0.9% 1,000 ML IV SCH (02:02)
[2020-07-07 05:59] LABS: Prothrombin Time 83.8 sec (9.0-12.0)
[2020-07-07 06:00] LABS: INR 8.1 (<1.2)
[2020-07-07 06:03] LABS: HGB 13.8 gm/dL (13.0-17.5); MCH 30.4 pg (25.0-35.0); MCHC 32.2 g/dL (31.0-37.0); MCV 94.3 fL (80.0-100.0); Mean Platelet Volume 7.7; Platelet Count 244 k/uL (150-450); RBC 4.55 m/uL (4.30-5.90); RDW 13.2 % (11.5-15.5); WBC 9.2 k/uL (3.8-10.6)
[2020-07-07] MEDS ORDERED: PHYTONADIONE 5 MG in SODIUM CHLORIDE 0.9% 50 ML IVPB STA (06:18)
[2020-07-07 07:03] LABS: ALT 11 U/L (4-49); AST 24 U/L (17-59); African American GFR (CKD) >90 (>60 ml/min/1.73 sqM); Albumin 3.5 g/dL (3.5-5.0); Alkaline Phosphatase 110 U/L (38-126); Anion Gap 8 mmol/L; Blood Urea Nitrogen 10 mg/dL (9-20); Calcium 9.2 mg/dL (8.4-10.2); Carbon Dioxide 29 mmol/L (22-30); Chloride 103 mmol/L (98-107); Glucose 110 mg/dL (74-99); Non-African American GFR(CKD) 79 (>60 ml/min/1.73 sqM); Potassium 3.4 mmol/L (3.5-5.1); Sodium 140 mmol/L (137-145); Total Bilirubin 1.2 mg/dL (0.2-1.3); Total Protein 6.1 g/dL (6.3-8.2)
[2020-07-07] MEDS: METOCLOPRAMIDE 5 MG TAB PO SCH (07:34)
--- NOTE | 2020-07-07 08:03 | P.DS ---
Providers Date of admission: 07/06/20 07:52 Attending physician: Carlton Escobar Consults: 07/05/20 11:46 Consult Physician Routine Consulting Provider: Tree Gutierrez Consult Reason/Comments: inability to swallow, hx of alchalsia, PCP surgical preference Do you want consulting provider notified?: Yes 07/06/20 08:02 Consult Physician Routine Consulting Provider: Garrison Moreira Consult Reason/Comments: achalasia Do you want consulting provider notified?: Yes Primary care physician: Carlton Escobar - Discharge Diagnosis(es) (1) Achalasia Current Visit: Yes Status: Acute (2) Regurgitation of food Current Visit: Yes Status: Acute (3) Supratherapeutic INR Current Visit: Yes Status: Acute (4) Atrial fibrillation Current Visit: No Status: Acute (5) Gastroesophageal reflux disease with esophagitis Current Visit: No Status: Acute (6) History of pulmonary embolus (PE) Current Visit: No Status: Acute Hospital Course: This discharge summary 75-year-old white male essentially admitted for achalasia and dysphagia. The patient was evaluated but will be followed up with Dr. Moran as an outpatient. Evaluation by surgery and thoracic surgery did not reveal knee need at this time to do any type of endoscopy given his overall situation. INR is elevated secondary to lack of protein. We will hold Coumadin at this time. He has not underlying history of atrial fibrillation. Other than that a left lites imbalance was corrected and he will follow-up with me in the a.m. for INR. Patient Condition at Discharge: Stable Plan - Discharge Summary Discharge Rx Participant: No New Discharge Prescriptions: Continue Tamsulosin [Flomax] 0.4 mg PO BID Furosemide [Lasix] 20 mg PO BID lisinopriL 40 mg PO QAM HYDROcodone/APAP 7.5-325MG [[place] 7.5-325] 1 tab PO Q6HR PRN #28 tab PRN Reason: Pain Tolterodine ER [Detrol LA] 4 mg PO DAILY Metoclopramide [Reglan] 5 mg PO ACHS Mirabegron [Myrbetriq] 50 mg PO DAILY Dutasteride 0.5 mg PO DAILY@1200 Discontinued Warfarin Sodium [Coumadin] 2 mg PO DAILY Discharge Medication List Furosemide [Lasix] 20 mg PO BID 02/25/14 [History] Tamsulosin [Flomax] 0.4 mg PO BID 02/25/14 [History] lisinopriL 40 mg PO QAM 05/13/15 [History] HYDROcodone/APAP 7.5-325MG [[place] 7.5-325] 1 tab PO Q6HR PRN #28 tab 10/11/16 [Rx] Dutasteride 0.5 mg PO DAILY@1200 07/05/20 [History] Metoclopramide [Reglan] 5 mg PO ACHS 07/05/20 [History] Mirabegron [Myrbetriq] 50 mg PO DAILY 07/05/20 [History] Tolterodine ER [Detrol LA] 4 mg PO DAILY 07/05/20 [History] Follow up Appointment(s)/Referral(s): Carlton Escobar MD [Primary Care Provider] - 1-2 days Nonstaff,Physician [REFERRING] - As Needed (Dr Jun Louis [address] [address], [address] [place] [address] phone:[phone] fax:[phone])
[2020-07-07] MEDS: FUROSEMIDE 10 MG/ML 2 ML VIAL IV SCH (08:27)
[2020-07-07] MEDS: OXYBUTYNIN XL 5 MG TAB.ER.24 PO SCH (08:28)
[2020-07-07] MEDS: TAMSULOSIN 0.4 MG CAP.ER.24H PO SCH (08:29)
[2020-07-07] MEDS: lisinopriL 20 MG TAB PO SCH (08:29)
[2020-07-07] MEDS: NON FORMULARY DRUG (Mirabegron [Myrbetriq] 50 MG) PO SCH (08:33)
[2020-07-07 10:07] VITALS: BP 130/74; PULSE 65; RESP 16; TEMP 98
== END 2020-07-07 10:37 | disposition home or self-care (01) ==
LOC: EC 10:22 → 1SOBS 12:01 → OBSVTOIN 07-06 07:52 → INTOOBSV 07-06 07:52 → UNDODISIN 07-07 10:37
PROVIDERS: ADMIT Family Medicine; ATTEND Family Medicine
DX: K22.0 Achalasia of cardia (principal); I48.91 Unspecified atrial fibrillation; E87.6 Hypokalemia; K21.0 Gastro-esophageal reflux disease with esophagitis; Z86.711 Personal history of pulmonary embolism; Z85.828 Personal history of other malignant neoplasm of skin; K21.9 Gastro-esophageal reflux disease without esophagitis; H91.90 Unspecified hearing loss, unspecified ear; I10 Essential (primary) hypertension; M19.90 Unspecified osteoarthritis, unspecified site; R11.11 Vomiting without nausea; R79.1 Abnormal coagulation profile; R63.4 Abnormal weight loss; Z98.1 Arthrodesis status; Z98.890 Other specified postprocedural states; Z80.52 Family history of malignant neoplasm of bladder; Z90.49 Acquired absence of other specified parts of digestive tract; Z96.642 Presence of left artificial hip joint; Z96.653 Presence of artificial knee joint, bilateral; Z80.6 Family history of leukemia; Z80.7 Family history of other malignant neoplasms of lymphoid, hematopoietic and related tissues; Z98.42 Cataract extraction status, left eye; Z96.1 Presence of intraocular lens; Z98.41 Cataract extraction status, right eye; Z79.01 Long term (current) use of anticoagulants; Z79.891 Long term (current) use of opiate analgesic; Z79.899 Other long term (current) drug therapy; Z88.1 Allergy status to other antibiotic agents
CPT/HCPCS: 96361 ×3; 96366 ×2; 96367; 96375; 96376 ×2; 96365; 99284; 36415; 80053 ×3; 84132; 85025; 85027; 85610 ×3; 85730; G0378 ×3; J3430; J1940 ×2; J3480 ×2

== ENCOUNTER 2020-09-02 15:10 | Inpatient (IN) | payer MEDICARE ==
[2020-09-02] MEDS ORDERED: IPRATROPIUM 0.5 MG/2.5 ML NEBU INHALATION STA (15:17)
[2020-09-02] MEDS ORDERED: ALBUTEROL NEBULIZED 2.5 MG/3 ML INHALATION STA (15:17)
--- NOTE | 2020-09-02 15:19 | ED ---
SOB HPI - General Stated Complaint: VU Time Seen by Provider: 09/02/20 15:16 Source: RN notes reviewed, old records reviewed - History of Present Illness Initial Comments: this is a 75-year-old male who was unable to give history secondary to clinical condition. Patient arrives on BiPAP secondary to hypoxia and respiratory dis tress, patient has by EMS history obtained from chart MD Complaint: shortness of breath, anxiety -: minutes(s) Severity: moderate Severity scale (1-10): 4 - Related Data Home Medications Medication Instructions Recorded Confirmed lisinopriL 40 mg PEG/G-TUBE DAILY@0800 05/13/15 09/02/20 Acetaminophen Oral Susp [Tylenol] 650 mg PEG/G-TUBE Q4H PRN 09/02/20 09/02/20 Amoxic-Pot Clav 250-62.5MG/5Ml 12 ml PEJ/J-TUBE BID@0800,1700 09/02/20 09/02/20 [Augmentin 250-62.5 mg/5 ml Susp.] Aspirin 81 mg PEG/G-TUBE DAILY@1700 09/02/20 09/02/20 Carbidopa/Levodopa [Parcopa 25-100 1 tab PEG/G-TUBE TID@0800,1200,1700 09/02/20 09/02/20 mg Odt] Collagenase [Santyl] 1 applic TOPICAL DAILY 09/02/20 09/02/20 Famotidine [Pepcid] 20 mg PEG/G-TUBE BID@0800,2100 09/02/20 09/02/20 Ipratropium-Albuterol Nebulize 3 ml INHALATION RT-QID PRN 09/02/20 09/02/20 [Duoneb 0.5 mg-3 mg/3 ml Soln] Magnesium Hydroxide [Milk of 7,200 mg PEG/G-TUBE Q48H PRN 09/02/20 09/02/20 Magnesia Concentrate] Metoprolol Tartrate [Lopressor] 25 mg PEG/G-TUBE BID@0800,1700 09/02/20 09/02/20 Na Phos,M-B/Na Phos,Di-Ba [Fleet 133 ml RECTAL DAILY PRN 09/02/20 09/02/20 Adult] Oxybutynin Chloride [Ditropan] 5 mg PEG/G-TUBE BID@0800,1700 09/02/20 09/02/20 Saliva Stimulant Agents Comb.3 2 spray MUCOUS MEM DAILY PRN 09/02/20 09/02/20 [Biotene Moisturizing Mouth] Saliva Stimulant Agents Comb.3 2 spray MUCOUS MEM 09/02/20 09/02/20 [Biotene Moisturizing Mouth] TID@0800,1400,2100 Vits A and D/White Pet/Lanolin [A 1 applic TOPICAL BID 09/02/20 09/02/20 and D Ointment] bisacodyL [Bisacodyl] 10 mg RECTAL DAILY PRN 09/02/20 09/02/20 hydrALAZINE HCL [Apresoline] 100 mg PEG/G-TUBE 09/02/20 09/02/20 TID@0800,1200,1700 Allergies Allergy/AdvReac Type Severity Reaction Status Date / Time ciprofloxacin [From Cipro] Allergy Rash/Hives Verified 09/02/20 16:06 ciprofloxacin HCl Allergy Rash/Hives Verified 09/02/20 16:06 [From Cipro] Review of Systems ROS Statement: Those systems with pertinent positive or pertinent negative responses have been documented in the HPI. ROS Other: All systems not noted in ROS Statement are negative. Past Medical History Past Medical History: Atrial Fibrillation, Cancer, Eye Disorder, GERD/Reflux, Hearing Disorder / Deafness, Hypertension, Osteoarthritis (OA), Pulmonary Embolus (PE), Skin Disorder Additional Past Medical History / Comment(s): Hx Colon RESECTION FOR MASS. Skin Cancer. HIATAL HERNIA. HAS LENS IMPLANTS SARAI EYES. History of Any Multi-Drug Resistant Organisms: None Reported Past Surgical History: Appendectomy, Back Surgery, Bowel Resection, Hernia Repair, Joint Replacement Additional Past Surgical History / Comment(s): REVISION TOTAL LT HIP. SARAI KNEES & HIPS REPLACEMENTS. Fusion of lower back, neck fusion. BOWEL RES: PRECANCEROUS MASS. SARAI. cataracts. Sarai leg LASER VEIN SURG. Removal of skin cancer from scalp and chest. surgery for fx nose. rt shoulder rotator cuff. EGD X2, LAST 08/2016.10-11-16 BROCK FUNDOPLICATION Past Anesthesia/Blood Transfusion Reactions: No Reported Reaction Past Psychological History: No Psychological Hx Reported Smoking Status: Never smoker Past Alcohol Use History: Occasional Past Drug Use History: None Reported - Past Family History Sister(s) Family Medical History: Cancer Mother Family Medical History: Cancer Additional Family Medical History / Comment(s): BLADDER Father Family Medical History: Cancer Additional Family Medical History / Comment(s): LEUKEMIA Brother(s) Family Medical History: Cancer Additional Family Medical History / Comment(s): MULTIPLE MYELOMA General Exam Limitations: altered mental status, physical limitation General appearance: alert, in distress Head exam: Present: atraumatic, normocephalic, normal inspection Eye exam: Present: normal appearance, PERRL, EOMI. Absent: scleral icterus, conjunctival injection, periorbital swelling ENT exam: Present: normal exam, mucous membranes moist Neck exam: Present: normal inspection. Absent: tenderness, meningismus, lymphadenopathy Respiratory exam: Present: respiratory distress, wheezes, accessory muscle use, decreased breath sounds, prolonged expiratory. Absent: rales, rhonchi, stridor Cardiovascular Exam: Present: regular rate, normal rhythm, normal heart sounds. Absent: systolic murmur, diastolic murmur, rubs, gallop, clicks GI/Abdominal exam: Present: soft, normal bowel sounds. Absent: distended, tenderness, guarding, rebound, rigid Extremities exam: Present: normal inspection, full ROM, normal capillary refill. Absent: tenderness, pedal edema, joint swelling, calf tenderness Back exam: Present: normal inspection Neurological exam: Present: alert, oriented X3, CN II-XII intact Psychiatric exam: Present: normal affect, normal mood Skin exam: Present: warm, dry, intact, normal color. Absent: rash Course Vital Signs 09/02/20 09/02/20 09/02/20 15:15 15:36 15:53 Temperature 97 F L Pulse Rate 68 80 Respiratory 32 H 26 H Rate Blood Pressure 125/77 O2 Sat by Pulse 97 Oximetry 09/02/20 09/02/20 09/02/20 15:55 16:27 16:33 Temperature Pulse Rate 78 74 84 Respiratory 22 Rate Blood Pressure 132/63 O2 Sat by Pulse 99 Oximetry 09/02/20 09/02/20 09/02/20 17:52 19:11 20:34 Temperature 98.4 F Pulse Rate 75 82 79 Respiratory 20 18 22 Rate Blood Pressure 123/76 121/70 131/70 O2 Sat by Pulse 97 98 99 Oximetry - Reevaluation(s) Reevaluation #1: 09/02/20 20:48 medical record is reviewed Reevaluation #2: 09/02/20 20:48 atient did not improve on arrival to ER placed on BiPAP Reevaluation #3: 09/02/20 20:48 patient has no improvement overall here with treatment - Consultations Consultation #1: spoke with Dr. Paredes who agrees to admit this patient Medical Decision Making - Medical Decision Making 75 male severe respiratory distress shortness of breath CHF and pneumonia. Patient be admitted for respiratory failure on BiPAP above - Lab Data Result diagrams: 09/02/20 15:47 09/02/20 15:47 Lab Results 09/02/20 09/02/20 09/02/20 Range/Units 15:47 15:47 15:47 WBC 21.5 H (3.8-10.6) k/uL RBC 3.02 L (4.30-5.90) m/uL Hgb 8.5 L (13.0-17.5) gm/dL Hct 28.4 L (39.0-53.0) % MCV 93.9 (80.0-100.0) fL MCH 28.3 (25.0-35.0) pg MCHC 30.1 L (31.0-37.0) g/dL RDW 15.4 (11.5-15.5) % Plt Count 653 H (150-450) k/uL Neutrophils % 89 % Lymphocytes % 7 % Monocytes % 2 % Eosinophils % 1 % Basophils % 1 % Neutrophils # 19.1 H (1.3-7.7) k/uL Lymphocytes # 1.5 (1.0-4.8) k/uL Monocytes # 0.5 (0-1.0) k/uL Eosinophils # 0.1 (0-0.7) k/uL Basophils # 0.1 (0-0.2) k/uL Hypochromasia Marked PT 10.2 (9.0-12.0) sec INR 1.0 (<1.2) APTT 24.0 (22.0-30.0) sec Sodium 137 (137-145) mmol/L Potassium 4.5 (3.5-5.1) mmol/L Chloride 105 (98-107) mmol/L Carbon Dioxide 30 (22-30) mmol/L Anion Gap 2 mmol/L BUN 31 H (9-20) mg/dL Creatinine 0.48 L (0.66-1.25) mg/dL Est GFR (CKD-EPI)AfAm >90 (>60 ml/min/1.73 sqM) Est GFR (CKD-EPI)NonAf >90 (>60 ml/min/1.73 sqM) Glucose 124 H (74-99) mg/dL Plasma Lactic Acid Jalil (0.7-2.0) mmol/L Calcium 8.8 (8.4-10.2) mg/dL Magnesium 2.3 (1.6-2.3) mg/dL Total Bilirubin 0.9 (0.2-1.3) mg/dL AST 57 (17-59) U/L ALT 21 (4-49) U/L Alkaline Phosphatase 212 H (38-126) U/L Creatine Kinase <20 L (55-170) U/L Troponin I (0.000-0.034) ng/mL NT-Pro-B Natriuret Pep pg/mL Total Protein 5.9 L (6.3-8.2) g/dL Albumin 2.3 L (3.5-5.0) g/dL 09/02/20 09/02/20 09/02/20 Range/Units 15:47 15:47 15:47 WBC (3.8-10.6) k/uL RBC (4.30-5.90) m/uL Hgb (13.0-17.5) gm/dL Hct (39.0-53.0) % MCV (80.0-100.0) fL MCH (25.0-35.0) pg MCHC (31.0-37.0) g/dL RDW (11.5-15.5) % Plt Count (150-450) k/uL Neutrophils % % Lymphocytes % % Monocytes % % Eosinophils % % Basophils % % Neutrophils # (1.3-7.7) k/uL Lymphocytes # (1.0-4.8) k/uL Monocytes # (0-1.0) k/uL Eosinophils # (0-0.7) k/uL Basophils # (0-0.2) k/uL Hypochromasia PT (9.0-12.0) sec INR (<1.2) APTT (22.0-30.0) sec Sodium (137-145) mmol/L Potassium (3.5-5.1) mmol/L Chloride (98-107) mmol/L Carbon Dioxide (22-30) mmol/L Anion Gap mmol/L BUN (9-20) mg/dL Creatinine (0.66-1.25) mg/dL Est GFR (CKD-EPI)AfAm (>60 ml/min/1.73 sqM) Est GFR (CKD-EPI)NonAf (>60 ml/min/1.73 sqM) Glucose (74-99) mg/dL Plasma Lactic Acid Jalil 1.2 (0.7-2.0) mmol/L Calcium (8.4-10.2) mg/dL Magnesium (1.6-2.3) mg/dL Total Bilirubin (0.2-1.3) mg/dL AST (17-59) U/L ALT (4-49) U/L Alkaline Phosphatase (38-126) U/L Creatine Kinase (55-170) U/L Troponin I 0.014 (0.000-0.034) ng/mL NT-Pro-B Natriuret Pep 8040 pg/mL Total Protein (6.3-8.2) g/dL Albumin (3.5-5.0) g/dL - EKG Data -: EKG Interpreted by Me (EKG A. fib 87 QRS 96 QTC 481) - Radiology Data Radiology results: report reviewed (chest x-ray shows CHF with also likely underlying pneumonia based on history), image reviewed Critical Care Time Critical Care Time: Yes Total Critical Care Time: 31 Disposition Clinical Impression: Acute pulmonary edema, Acute respiratory distress syndrome in adult, Acute respiratory failure Disposition: ADMITTED IP TO THIS HOSP Condition: Fair Is patient prescribed a controlled substance at d/c from ED?: No
--- NOTE | 2020-09-02 16:08 | XR ---
EXAMINATION TYPE: XR chest 1V portable DATE OF EXAM: 09/02/2020 COMPARISON: Prior chest x-ray 10/12/[address] 10/13/2016 HISTORY: Shortness of breath TECHNIQUE: Single frontal view of the chest is obtained. FINDINGS: Right-sided PICC line is in place. Distal tip is overlying the superior vena cava. Heart i s enlarged. No evident pneumothorax. Postop changes are noted to the cervical spine. There is increas ed opacity overlying the right hemithorax with blunting the costophrenic angle, obscured hemidiaphrag ms are present bilaterally, bibasilar density. There is some abnormal density also present in the upp er lobes. Aorta is dense. There are overlying artifacts. This tissue is prominent. Dominant lung line s consistent with underlying COPD. IMPRESSION: Correlate for congestive heart failure, there are likely pleural effusions bilaterally. Pneumonia not excluded. Emphysema. Follow-up recommended.
[2020-09-02 16:23] LABS: ALT 21 U/L (4-49); AST 57 U/L (17-59); African American GFR (CKD) >90 (>60 ml/min/1.73 sqM); Albumin 2.3 g/dL (3.5-5.0); Alkaline Phosphatase 212 U/L (38-126); Anion Gap 2 mmol/L; Blood Urea Nitrogen 31 mg/dL (9-20); Calcium 8.8 mg/dL (8.4-10.2); Carbon Dioxide 30 mmol/L (22-30); Chloride 105 mmol/L (98-107); Creatine Kinase <20 U/L (55-170); Glucose 124 mg/dL (74-99); Magnesium 2.3 mg/dL (1.6-2.3); Non-African American GFR(CKD) >90 (>60 ml/min/1.73 sqM); Potassium 4.5 mmol/L (3.5-5.1); Sodium 137 mmol/L (137-145); Total Bilirubin 0.9 mg/dL (0.2-1.3); Total Protein 5.9 g/dL (6.3-8.2)
[2020-09-02 16:24] LABS: Prothrombin Time 10.2 sec (9.0-12.0)
[2020-09-02 16:28] LABS: Basophils # (A) 0.1 k/uL (0-0.2); Basophils % (A) 1 %; Eosinophils # (A) 0.1 k/uL (0-0.7); Eosinophils % (A) 1 %; HCT 28.4 % (39.0-53.0); HGB 8.5 gm/dL (13.0-17.5); Hypochromasia Marked; Lymphocytes # (A) 1.5 k/uL (1.0-4.8); Lymphocytes % (A) 7 %; MCH 28.3 pg (25.0-35.0); MCHC 30.1 g/dL (31.0-37.0); MCV 93.9 fL (80.0-100.0); Mean Platelet Volume 7.6; Monocytes # (A) 0.5 k/uL (0-1.0); Monocytes % (A) 2 %; Neutrophils # (A) 19.1 k/uL (1.3-7.7); Neutrophils % (A) 89 %; Platelet Count 653 k/uL (150-450); RBC 3.02 m/uL (4.30-5.90); RDW 15.4 % (11.5-15.5); WBC 21.5 k/uL (3.8-10.6)
[2020-09-02] MEDS: FUROSEMIDE 10 MG/ML 4 ML VIAL IV SCH (17:49)
[2020-09-02] MEDS ORDERED: VANCOMYCIN IV PER PHARMACY 1 EACH MISC MISCELLANE PRN (18:58)
[2020-09-02] MEDS ORDERED: PIPERACILLIN-TAZOBACTAM 3.375 GM in SODIUM CHLORIDE 0.9% 100 ML IVPB STA (18:58)
[2020-09-02] MEDS ORDERED: VANCOMYCIN 1,250 MG in SODIUM CHLORIDE 0.9% 250 ML IVPB ONE (19:15)
[2020-09-02] MEDS ORDERED: MAGNESIUM HYDROXIDE 2,400 MG/10 ML CUP PEG/G-TUBE PRN (22:03)
[2020-09-02] MEDS ORDERED: ACETAMINOPHEN ORAL SUSP 160 MG/5 ML CUP PEG/G-TUBE PRN (22:03)
[2020-09-02] MEDS ORDERED: SALIVA STIMULANT AGENTS COMB MUCOUS MEM PRN (22:03)
[2020-09-02] MEDS ORDERED: NA PHOS,M-B/NA PHOS,DI-BA 133 ML ENEMA RECTAL PRN (22:03)
[2020-09-02] MEDS ORDERED: bisacodyL 10 MG SUPP RECTAL PRN (22:03)
[2020-09-03] MEDS: FUROSEMIDE 10 MG/ML 4 ML VIAL IV SCH ×2 (05:18→16:15)
[2020-09-03] MEDS ORDERED: AMOXICILLIN PO SCH (08:00)
[2020-09-03] MEDS ORDERED: CLAVULANATE PO SCH (08:00)
[2020-09-03] MEDS ORDERED: [UNRECOGNIZED DRUG - OTHER] PO SCH (08:00)
[2020-09-03] MEDS: IPRATROPIUM-ALBUTEROL 3 ML NEB INHALATION PRN ×3 (09:01→21:26)
[2020-09-03] MEDS: CARBIDOPA-LEVODOPA 25-100 MG 1 EACH TAB PEG/G-TUBE SCH ×3 (09:25→16:14)
[2020-09-03] MEDS: lisinopriL 20 MG TAB PEG/G-TUBE SCH (09:25)
[2020-09-03] MEDS: OXYBUTYNIN CHLORIDE 5 MG TAB PEG/G-TUBE SCH ×2 (09:25→17:36)
[2020-09-03] MEDS: FAMOTIDINE 20 MG TAB PEG/G-TUBE SCH ×2 (09:25→21:49)
[2020-09-03] MEDS: METOPROLOL TARTRATE 25 MG TAB PEG/G-TUBE SCH ×2 (09:25→16:14)
[2020-09-03] MEDS: hydrALAZINE HCL 50 MG TAB PEG/G-TUBE SCH ×3 (09:26→16:14)
[2020-09-03] MEDS: VANCOMYCIN 1,250 MG in SODIUM CHLORIDE 0.9% 250 ML IVPB SCH ×2 (09:26→21:49)
--- NOTE | 2020-09-03 09:44 | P.HPIM ---
History of Present Illness H&P Date: 09/02/20 Chief Complaint: Severe dyspnea and shortness of breath, congestive heart fa judi coy 75-year-old male with past medical history of chronic A. fib, hypertension, congestive heart failure, previous history of pulmonary embolism, lower esophageal sphincter dysfunction. Patient was hospitalized in [facility] from 07/19/2020 till 08/24/2020 for extensive achalasia and esophageal sphincter dysfunction not been able to swallow 8 or drink anything for long time no finding consistent with Ye esophagus at the time or esophageal cancer was found. Patient was care for by Dr. Eastman cardiothoracic surgeon before patient presented to [facility] was having persistent symptom with nausea vomiting not been able to keep any fluid or food down for long time he in the become malnourished. He is known to have history of achalasia with lower sphincter dysfunction post robotic myomectomy in the past at the time patient was admitted to [place] patient was in acute respiratory failure secondary to aspiration pneumonia and possible emphysema was seen by multiple subspecialists in the hospital was in for over a month ended up having pleural effusion, acute GI bleed, acute blood loss anemia, coagulopathy his achalasia was much worse patient ended up having PEG tube feeding which attached to J-tube which was replaced in the hospital patient was fed to with since. 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 Addition patient found to have large sacral and decubitus unstageable ulcer been managed by wound care at the time. Patient found to be in acute respiratory distress with significant shortness of breath dyspnea and severe hypoxia despite having high flow O2 patient continued to decline ended up coming to the emergency department at [facility] where was seen and evaluated his chest x-ray showed significant fluid overload more like congestive heart failure. Patient was diagnosed with aspiration pneumonia, respiratory failure from COPD and CHF was admitted to the hospital start him on IV antibiotic IV diuretics patient be seen cardiology and pulmonary as well. Review of Systems CONSTITUTIONAL: Malnourished looks much older than his age mildly spot to distress. EYES: No icterus sclerae, no conjunctivitis. EARS, NOSE, MOUTH, THROAT, and FACE: No sore throat, lymphadenopathy, carotid br uits or deformity. RESPIRATORY: Significant dyspnea and shortness of breath with worsening cough and wheezes. CARDIOVASCULAR: Positive PND orthopnea Pepcid patient with worsening shortness of breath and CHF. GASTROINTESTINAL: Achalasia with severe dysphagia with PEG and J feeding. GENITOURINARY: Negative for Hematuria or UTI, no kidney stones. Goodson catheter. INTEGUMENT/BREAST: Negative for any muscular injury with mild osteoarthritis. Large sacral and decubitus ulcer unstageable.. HEMATOLOGIC/LYMPHATIC: Negative for bleed or purpura. MUSCULOSKELTAL: Negative for Myalgia or arthralgia. NEURLOGICAL: No LOC, Sz or syncope, blurred vision dizziness or abnormality.. BEHAVIORAL/PSYCH: Negative. ENDOCRINE: Negative. Past Medical History Past Medical History: Atrial Fibrillation, Cancer, Eye Disorder, GERD/Reflux, Hearing Disorder / Deafness, Hypertension, Osteoarthritis (OA), Pulmonary Embolus (PE), Skin Disorder Additional Past Medical History / Comment(s): Hx Colon RESECTION FOR MASS. Skin Cancer. HIATAL HERNIA. HAS LENS IMPLANTS SARAI EYES. History of Any Multi-Drug Resistant Organisms: None Reported Past Surgical History: Appendectomy, Back Surgery, Bowel Resection, Hernia Repair, Joint Replacement Additional Past Surgical History / Comment(s): REVISION TOTAL LT HIP. SARAI KNEES & HIPS REPLACEMENTS. Fusion of lower back, neck fusion. BOWEL RES: PRECANCEROUS MASS. SARAI. cataracts. Sarai leg LASER VEIN SURG. Removal of skin cancer from scalp and chest. surgery for fx nose. rt shoulder rotator cuff. EGD X2, LAST 08/2016.10-11-16 BROCK FUNDOPLICATION Past Anesthesia/Blood Transfusion Reactions: No Reported Reaction Past Psychological History: No Psychological Hx Reported Smoking Status: Never smoker Past Alcohol Use History: Occasional Past Drug Use History: None Reported - Past Family History Sister(s) Family Medical History: Cancer Mother Family Medical History: Cancer Additional Family Medical History / Comment(s): BLADDER Father Family Medical History: Cancer Additional Family Medical History / Comment(s): LEUKEMIA Brother(s) Family Medical History: Cancer Additional Family Medical History / Comment(s): MULTIPLE MYELOMA Medications and Allergies Home Medications Medication Instructions Recorded Confirmed Type lisinopriL 40 mg PEG/G-TUBE DAILY@0800 05/13/15 09/02/20 History Acetaminophen Oral Susp [Tylenol] 650 mg PEG/G-TUBE Q4H PRN 09/02/20 09/02/20 History Amoxic-Pot Clav 250-62.5MG/5Ml 12 ml PEJ/J-TUBE BID@0800,1700 09/02/20 09/02/20 History [Augmentin 250-62.5 mg/5 ml Susp.] Aspirin 81 mg PEG/G-TUBE DAILY@1700 09/02/20 09/02/20 History Carbidopa/Levodopa [Parcopa 25-100 1 tab PEG/G-TUBE TID@0800,1200,1700 09/02/20 09/02/20 History mg Odt] Collagenase [Santyl] 1 applic TOPICAL DAILY 09/02/20 09/02/20 History Famotidine [Pepcid] 20 mg PEG/G-TUBE BID@0800,2100 09/02/20 09/02/20 History Ipratropium-Albuterol Nebulize 3 ml INHALATION RT-QID PRN 09/02/20 09/02/20 History [Duoneb 0.5 mg-3 mg/3 ml Soln] Magnesium Hydroxide [Milk of 7,200 mg PEG/G-TUBE Q48H PRN 09/02/20 09/02/20 History Magnesia Concentrate] Metoprolol Tartrate [Lopressor] 25 mg PEG/G-TUBE BID@0800,1700 09/02/20 09/02/20 History Na Phos,M-B/Na Phos,Di-Ba [Fleet 133 ml RECTAL DAILY PRN 09/02/20 09/02/20 History Adult] Oxybutynin Chloride [Ditropan] 5 mg PEG/G-TUBE BID@0800,1700 09/02/20 09/02/20 History Saliva Stimulant Agents Comb.3 2 spray MUCOUS MEM DAILY PRN 09/02/20 09/02/20 Hi story [Biotene Moisturizing Mouth] Saliva Stimulant Agents Comb.3 2 spray MUCOUS MEM 09/02/20 09/02/20 History [Biotene Moisturizing Mouth] TID@0800,1400,2100 Vits A and D/White Pet/Lanolin [A 1 applic TOPICAL BID 09/02/20 09/02/20 History and D Ointment] bisacodyL [Bisacodyl] 10 mg RECTAL DAILY PRN 09/02/20 09/02/20 History hydrALAZINE HCL [Apresoline] 100 mg PEG/G-TUBE 09/02/20 09/02/20 History TID@0800,1200,1700 Allergies Allergy/AdvReac Type Severity Reaction Status Date / Time ciprofloxacin [From Cipro] Allergy Rash/Hives Verified 09/02/20 16:06 ciprofloxacin HCl Allergy Rash/Hives Verified 09/02/20 16:06 [From Cipro] Physical Exam Vitals: Vital Signs Temp Pulse Pulse Resp BP BP Pulse Ox 09/03/20 09:20 84 09/03/20 09:05 80 09/03/20 04:00 98.6 F 60 25 H 156/71 100 09/03/20 00:00 98.7 F 79 28 H 132/60 100 09/02/20 21:30 98.2 F 72 30 H 138/65 100 09/02/20 20:47 98.4 F 79 22 131/70 99 09/02/20 20:34 98.4 F 79 22 131/70 99 09/02/20 19:11 82 18 121/70 98 09/02/20 17:52 75 20 123/76 97 09/02/20 16:33 84 09/02/20 16:27 74 22 132/63 99 09/02/20 15:55 78 09/02/20 15:53 26 H 09/02/20 15:36 80 09/02/20 15:15 97 F L 68 32 H 125/77 97 Intake and Output 09/02/20 09/03/20 09/03/20 22:59 06:59 14:59 Intake Total 0 Output Total 800 700 Balance -800 -700 Intake: Intake, IV Titration 0 Amount Piperacillin-Tazobactam 3 0 .375 gm In Sodium Chloride 0.9% 100 ml @ 200 mls/hr IVPB ONCE STA Rx#:[id number] Output: Urine 800 700 Other: Voiding Method Indwelling Catheter Indwelling Catheter Weight 63.503 kg 64.5 kg General Appearance: Confuse significant shortness of breath with mild respiratory distress. Neck HEENT: Supple, no lymphadenopathy, no thyroid enlargement, no carotid bruits. Very dry mucosa. Lungs: Decreased breath sound bilaterally with fine rhonchi positive crackles positive mild expiratory wheezes as well. Chest Wall: Decrease expansion with deep inspiration no tenderness and no deformity was found on exam, no costochondral pain or discomfort. Heart: Irregular rate and rhythm, S1, S2 normal, positive S3 positive JVD with systolic murmur. Back: Symmetric, no curvature, ROM normal, no CVA tenderness. Abdomen: Soft possible sound, there is PEG tube with J port slight drainage around the tube area. Extremities: Extremities normal, atraumatic, no cyanosis or edema. Slight increased swelling in the right compared to the left specially the femoral area. Pulses: 2+ and symmetric. Skin: Skin color, texture, tugor normal, no rashes or lesions. Significant decub and sacrum ulcerated area unstageable very large been taking care of by wound care. Neurologic: Alert quite bit confuse [place] nerve II-12 intact positive generalized weakness not been able to do gait exam. Results CBC & Chem 7: 09/02/20 15:47 09/02/20 15:47 Labs: Abnormal Lab Results - Last 24 Hours (Table) 09/02/20 09/02/20 Range/Units 15:47 15:47 WBC 21.5 H (3.8-10.6) k/uL RBC 3.02 L (4.30-5.90) m/uL Hgb 8.5 L (13.0-17.5) gm/dL Hct 28.4 L (39.0-53.0) % MCHC 30.1 L (31.0-37.0) g/dL Plt Count 653 H (150-450) k/uL Neutrophils # 19.1 H (1.3-7.7) k/uL BUN 31 H (9-20) mg/dL Creatinine 0.48 L (0.66-1.25) mg/dL Glucose 124 H (74-99) mg/dL Alkaline Phosphatase 212 H (38-126) U/L Creatine Kinase <20 L (55-170) U/L Total Protein 5.9 L (6.3-8.2) g/dL Albumin 2.3 L (3.5-5.0) g/dL Thrombosis Risk Factor Assmnt - DVT/VTE Prophylaxis DVT/VTE Prophylaxis: Pharmacologic Prophylaxis ordered, Mechanical Prophylaxis ordered Assessment and Plan Assessment: 1 acute respiratory failure: Combination of CHF, COPD along with aspiration pneumonia, patient been treated currently for gram negatives pneumonia along with suspected in [place] recently with pleural effusion which is better. Patient will be started on vancomycin and add Zosyn at this point will be seen pulmonary continue high flow O2 and if needed BiPAP. 2 aspiration pneumonia: Was treated for gram-negative with IV antibiotic for 2 weeks before coming to [facility] less than a week ago patient will be back on gram-negative coverage. 3 congestive heart failure exacerbation: With his current finding echocardiogram will be done we'll be seeing cardiology continue current management. 4 recent history of GI bleed: Continue to watch for any significant drop in hemoglobin. 5 severe achalasia: Patient has not been able to swallow any food or fluid and has been fed via PEG feeding. Continue current management. 6 COPD: Continue patient on DuoNeb and Pulmicort. 7 A. fib with RVR: Patient is on medical management pulse rates under control and metoprolol 25 mg twice a day patient is not on any anticoagulation because of the recent GI bleed he had. 8 incidental abdominal aortic aneurysm: Size has been small dyspnea and follow- up as an outpatient. 9 severe PAD with right femoral occlusion was seen by vascular. 10 urinary retention and incontinence: Patient is on Goodson catheter currently. 11 history of pulmonary embolism: Patient could not go back on anticoagulation yet because of the recent GI bleed. 12 unstageable decubitus ulcer: Wound care continue topical care as well especially mattress and turn patient more frequent. 13 Parkinson disease: Was started on carbidopa levodopa recently continue medication. 14 GI prophylaxis: Continue patient on pantoprazole IV. 13 DVT prophylaxis: Patient will be on heparin 5000 units subcutaneous twice a day. CODE STATUS: Full code. Comorbidity: Patient had severe comorbidity with very high mortality at this point patient had multiple complication related to acute respiratory failure with severe achalasia with recurrent aspiration along with heart failure recent history of pulmonary embolism and DVT not been able to go on anticoagulation because of the acute GI bleed when he was hospitalized in [place] recently. Patient will be seen GI along with pulmonary and cardiology continue current management for now. Admit patient to inpatient status for more than 2 night stay.
[2020-09-03 11:19] VITALS: BMI 21.6
--- NOTE | 2020-09-03 11:58 | US ---
EXAMINATION TYPE: US chest DATE OF EXAM: 09/03/2020 COMPARISON: NONE CLINICAL HISTORY: Markings for thoracentesis by pulmonary staff. TECHNIQUE: Targeted ultrasound of the posterior lower bilateral hemithoraces EXAM MEASUREMENTS: Right Pleural Effusion pocket size: 6.7 cm Right skin surface to fluid distance: 2.0 cm Left Pleural Effusion pocket size: 2.3 cm Left skin surface to fluid distance: 3.0 cm Right side marked for possible thoracentesis outside the dept. Left side not marked for possible thoracentesis outside the dept. Pulmonologists are able to review the images in the patient?s EMR. IMPRESSIONS: Slight marking of the right chest for possible thoracentesis.
[2020-09-03] MEDS: PIPERACILLIN-TAZOBACTAM 3.375 GM in SODIUM CHLORIDE 0.9% 100 ML IVPB SCH ×2 (12:36→17:36)
[2020-09-03 13:02] LABS: Glucose,Whole Blood 95 mg/dL (75-99)
[2020-09-03] MEDS ORDERED: NALOXONE 0.4 MG/ML 1 ML VIAL IV PRN (14:22)
--- NOTE | 2020-09-03 14:35 | P.CNPUL ---
History of Present Illness Consult date: 09/03/20 Requesting physician: Harry Paredes Reason for consult: pneumonia, pleural effusion Chief complaint: Shortness of breath History of present illness: This is a 75-year-old white male who seems to be nonverbal, I was asked to see him on consultation for what seems to be an extensive right-sided pneumonia and right-sided pleural effusion. Based on the chart, patient is known to have history of multiple medical problems including chronic atrial fibrillation, hypertension, congestive heart failure, previous history of pulmonary embolism, lower esophageal dysfunction, and the patient was recently at [facility] from 07/19 until 1027 for extensive achalasia and esophageal sphincter dysfuncti on. Apparently he was seen by multiple consultants and he was eventually discharged to a care home. Patient had a PEG tube in place, used mostly for enteral feeding. While at the facility/rehab facility, patient was noted to have worsening shortness of breath, and severe hypoxia in spite of high flow OXYGEN. Brought into the emergency room yesterday, chest x-ray showed extensive airspace disease and right-sided pleural effusion, hence he was admitted, started on antibiotics, and I was asked to see him on consultation. Upon my evaluation, patient was noted to be on BiPAP, and patient was nonverbal, seems to be in moderate respiratory distress, hence I have recommended transferring the patient to the ICU, in the meantime I have recommended an ultrasound of the chest, and I would likely perform a right-sided thoracentesis on this patient. The right-sided pleural effusion could be parapneumonic, or could be related to congestive heart failure since the patient is known to have previous history of CHF. Review of Systems ROS unobtainable: due to mental status Past Medical History Past Medical History: Atrial Fibrillation, Cancer, Eye Disorder, GERD/Reflux, Hearing Disorder / Deafness, Hypertension, Osteoarthritis (OA), Pulmonary Embolus (PE), Skin Disorder Additional Past Medical History / Comment(s): Hx Colon RESECTION FOR MASS. Skin Cancer. HIATAL HERNIA. HAS LENS IMPLANTS AHMET EYES. History of Any Multi-Drug Resistant Organisms: None Reported Past Surgical History: Appendectomy, Back Surgery, Bowel Resection, Hernia Repair, Joint Replacement Additional Past Surgical History / Comment(s): REVISION TOTAL LT HIP. AHMET KNEES & HIPS REPLACEMENTS. Fusion of lower back, neck fusion. BOWEL RES: PRECANCEROUS MASS. AHMET. cataracts. Ahmet leg LASER VEIN SURG. Removal of skin cancer from scalp and chest. surgery for fx nose. rt shoulder rotator cuff. EGD X2, LAST 08/2016.10-11-16 BROCK FUNDOPLICATION Past Anesthesia/Blood Transfusion Reactions: No Reported Reaction Past Psychological History: No Psychological Hx Reported Smoking Status: Never smoker Past Alcohol Use History: Occasional Past Drug Use History: None Reported - Past Family History Sister(s) Family Medical History: Cancer Mother Family Medical History: Cancer Additional Family Medical History / Comment(s): BLADDER Father Family Medical History: Cancer Additional Family Medical History / Comment(s): LEUKEMIA Brother(s) Family Medical History: Cancer Additional Family Medical History / Comment(s): MULTIPLE MYELOMA Medications and Allergies Home Medications Medication Instructions Recorded Confirmed Type lisinopriL 40 mg PEG/G-TUBE DAILY@0800 05/13/15 09/02/20 History Acetaminophen Oral Susp [Tylenol] 650 mg PEG/G-TUBE Q4H PRN 09/02/20 09/02/20 History Amoxic-Pot Clav 250-62.5MG/5Ml 12 ml PEJ/J-TUBE BID@0800,1700 09/02/20 09/02/20 History [Augmentin 250-62.5 mg/5 ml Susp.] Aspirin 81 mg PEG/G-TUBE DAILY@1700 09/02/20 09/02/20 History Carbidopa/Levodopa [Parcopa 25-100 1 tab PEG/G-TUBE TID@0800,1200,1700 09/02/20 09/02/20 History mg Odt] Collagenase [Santyl] 1 applic TOPICAL DAILY 09/02/20 09/02/20 History Famotidine [Pepcid] 20 mg PEG/G-TUBE BID@0800,2100 09/02/20 09/02/20 History Ipratropium-Albuterol Nebulize 3 ml INHALATION RT-QID PRN 09/02/20 09/02/20 History [Duoneb 0.5 mg-3 mg/3 ml Soln] Magnesium Hydroxide [Milk of 7,200 mg PEG/G-TUBE Q48H PRN 09/02/20 09/02/20 History Magnesia Concentrate] Metoprolol Tartrate [Lopressor] 25 mg PEG/G-TUBE BID@0800,1700 09/02/20 09/02/20 History Na Phos,M-B/Na Phos,Di-Ba [Fleet 133 ml RECTAL DAILY PRN 09/02/20 09/02/20 History Adult] Oxybutynin Chloride [Ditropan] 5 mg PEG/G-TUBE BID@0800,1700 09/02/20 09/02/20 History Saliva Stimulant Agents Comb.3 2 spray MUCOUS MEM DAILY PRN 09/02/20 09/02/20 History [Biotene Moisturizing Mouth] Saliva Stimulant Agents Comb.3 2 spray MUCOUS MEM 09/02/20 09/02/20 History [Biotene Moisturizing Mouth] TID@0800,1400,2100 Vits A and D/White Pet/Lanolin [A 1 applic TOPICAL BID 09/02/20 09/02/20 History and D Ointment] bisacodyL [Bisacodyl] 10 mg RECTAL DAILY PRN 09/02/20 09/02/20 History hydrALAZINE HCL [Apresoline] 100 mg PEG/G-TUBE 09/02/20 09/02/20 History TID@0800,1200,1700 Allergies Allergy/AdvReac Type Severity Reaction Status Date / Time ciprofloxacin [From Cipro] Allergy Rash/Hives Verified 09/02/20 16:06 ciprofloxacin HCl Allergy Rash/Hives Verified 09/02/20 16:06 [From Cipro] Physical Exam Vitals: Vital Signs Temp Pulse Pulse Resp BP BP Pulse Ox 09/03/20 12:34 80 09/03/20 12:18 80 09/03/20 12:00 97.9 F 64 22 146/69 99 09/03/20 09:20 84 09/03/20 09:05 80 09/03/20 08:00 97.9 F 72 22 127/73 100 09/03/20 04:00 98.6 F 60 25 H 156/71 100 09/03/20 00:00 98.7 F 79 28 H 132/60 100 09/02/20 21:30 98.2 F 72 30 H 138/65 100 09/02/20 20:47 98.4 F 79 22 131/70 99 09/02/20 20:34 98.4 F 79 22 131/70 99 09/02/20 19:11 82 18 121/70 98 09/02/20 17:52 75 20 123/76 97 09/02/20 16:33 84 09/02/20 16:27 74 22 132/63 99 09/02/20 15:55 78 09/02/20 15:53 26 H 09/02/20 15:36 80 09/02/20 15:15 97 F L 68 32 H 125/77 97 Intake and Output 09/02/20 09/03/20 09/03/20 22:59 06:59 14:59 Intake Total 0 Output Total 292 381 6576 Balance -800 -700 -1400 Intake: Intake, IV Titration 0 Amount Piperacillin-Tazobactam 3 0 .375 gm In Sodium Chloride 0.9% 100 ml @ 200 mls/hr IVPB ONCE STA Rx#:[id number] Output: Urine 565 699 8260 Other: Voiding Method Indwelling Catheter Indwelling Catheter Indwelling Catheter Weight 64.5 kg 64.5 kg 64.5 kg General Appearance: Revealed a 75-year-old white male on BiPAP, in moderate r espiratory distress. HEENT: PERRLA, EOMI, no icterus.. Dry mucous membranes noted Lungs: Symmetrical chest expansion, diminished breath sounds at the right base. No rhonchi no wheezes. Chest Symmetrical chest expansion. Heart: Irregular rate and rhythm, S1, S2 normal, 2/6 systolic murmur thought the precordium. Abdomen: Soft possible sound, there is PEG tube with J port slight drainage around the tube area. Extremities: No clubbing, edema or cyanosis, Pulses: 2+ and symmetric. Skin: decub and sacrum ulcerated area unstageable Neurologic: Confused, nonverbal, extremely frail, and weak. Does not follow any instructions. Results - Laboratory Findings CBC and BMP: 09/02/20 15:47 09/02/20 15:47 PT/INR, D-dimer PT 10.2 sec (9.0-12.0) 09/02/20 15:47 INR 1.0 (<1.2) 09/02/20 15:47 Abnormal lab findings: Abnormal Labs 09/02/20 09/02/20 15:47 15:47 WBC 21.5 H RBC 3.02 L Hgb 8.5 L Hct 28.4 L MCHC 30.1 L Plt Count 653 H Neutrophils # 19.1 H BUN 31 H Creatinine 0.48 L Glucose 124 H Alkaline Phosphatase 212 H Creatine Kinase <20 L Total Protein 5.9 L Albumin 2.3 L - Diagnostic Findings Chest x-ray: image reviewed (Extensive airspace disease noted in the right lung with large right sided pleural effusion noted. Significant opacity overlying the right hemithorax noted.) Assessment and Plan Assessment: Impression: Acute on chronic hypoxic respiratory failure Strongly suspect aspiration pneumonia and parapneumonic effusion. Cannot rule out empyema or fluid of congestive heart failure. Possible diastolic congestive heart failure. Echocardiogram is pending. History of severe achalasia History of underlying COPD Chronic atrial fibrillation History of peripheral vessel occlusive disease with a right femoral occlusion History of urinary incontinence History of pulmonary embolism On stage of old decubitus ulcer History of Parkinson's disease Recommendation: Continue antibiotics. Patient is now on vancomycin and Zosyn. Arrange for the patient to be transferred to the ICU. Patient will need diagnostic/therapeutic thoracentesis to determine whether the fluid is a parapneumonic in nature or cardiac in nature. Continue diuretics for now. Echocardiogram is pending. Overall prognosis is extremely poor and guarded considering the history of this patient. We'll continue to follow. Time with Patient: Greater than 30
--- NOTE | 2020-09-03 15:41 | XR ---
EXAMINATION TYPE: XR chest 1V DATE OF EXAM: 09/03/2020 COMPARISON: 09/02/2020 HISTORY: Short of breath TECHNIQUE: Single view FINDINGS: There is blunting right costophrenic angle. There is pulmonary vascular congestion. There i s slight blunting left costophrenic angle. Heart is enlarged. There are chest leads. IMPRESSION: Congestive heart failure with pleural effusions is slightly improved compared to charu nair
--- NOTE | 2020-09-03 15:57 | ECHOF ---
Referral Reason:Heart Failure MEASUREMENTS -------- HEIGHT: 172.7 cm WEIGHT: 64.4 kg BP: IVSd: 1.1 cm (0.6 - 1.1) LVIDd: 3.0 cm (3.9 - 5.3) LVPWd: 1.3 cm (0.6 - 1.1) IVSs: 1.2 cm LVIDs: 2.1 cm LVPWs: 1.3 cm LAESV Index (A-L): 18.68 ml/m Ao Diam: 3.5 cm (2.0 - 3.7) AV Cusp: 1.8 cm (1.5 - 2.6) LA Diam: 3.8 cm (2.7 - 3.8) MV EXCURSION: 22.907 mm (> 18.000) MV EF SLOPE: 161 mm/s (70 - 150) EPSS: 1.7 cm MV E Stephen: 0.96 m/s MV DecT: 229 ms MV A Stephen: 0.42 m/s MV E/A Ratio: 2.28 RAP: 5.00 mmHg RVSP: 15.17 mmHg FINDINGS -------- This was a technically adequate study. The left ventricular size is normal. There is borderline concentric left ventricular hypertrophy. Overall left ventricular systolic function is normal with, an EF between 55 - 60 %. Normal LAP Gra de 1 Diastolic Dysfunction. The right ventricle is normal in size. The left atrial size is normal. Normal LA size by volume 22+/-6 ml/m2. The right atrial size is normal. Aortic valve is trileaflet and is mildly thickened. The mitral valve is normal. The mitral valve leaflets are mildly thickened. There is trace mitral regurgitation. The tricuspid valve appears structurally normal. Trace tricuspid regurgitation present. Right erasmo tricular systolic pressure is normal at < 35 mmHg. There is no pulmonic regurgitation present. The aortic root size is normal. IVC Not well visulized. There is no pericardial effusion. CONCLUSIONS -------- 1. The left ventricular size is normal. 2. There is borderline concentric left ventricular hypertrophy. 3. Overall left ventricular systolic function is normal with, an EF between 55 - 60 %. 4. Normal LAP Grade 1 Diastolic Dysfunction. 5. Aortic valve is trileaflet and is mildly thickened. 6. The mitral valve leaflets are mildly thickened. 7. There is trace mitral regurgitation. 8. Trace tricuspid regurgitation present. 9. There is no pericardial effusion. FULFILLMENT MAIL CLERK: Negra Reed RDCS
[2020-09-03] MEDS: ASPIRIN 81 MG PEG/G-TUBE SCH (16:14)
[2020-09-03] MEDS: HEPARIN SODIUM,PORCINE 5,000 UNIT/ML 1 ML VIAL SQ SCH ×2 (16:15→23:57)
--- NOTE | 2020-09-03 16:20 | P.CRDCN ---
History of Present Illness Consult date: 09/03/20 History of present illness: This is 75-year-old gentleman was admitted to the hospital with complaints of increasing shortness of breath and respiratory failure. Patient has history of chronic atrial fibrillation but doesn't seem to be on anticoagulation therapy. He has history of hypertension, probably congestive heart failure based on diastolic dysfunction and also history of pulmonary embolism. Apparently patient has a lower esophageal dysfunction and was at [facility] from July 19 to for extensive achalasia and is a physical strength of dysfunction. [facility] with [facility]. At nursing facility, patient developed progressive shortness of breath and was brought to the hospital. He chest x-ray shows a right-sided pneumonia with possible effusion. It appears to be that patient most probably has aspiration pneumonia. His proBNP is elevated suggestive of possible concomitant diastolic CHF. His echocardiogram showed normal LV function. Patient's EKG shows atrial fibrillation with controlled ventricular response. From cardiac standpoint I will continue current medical therapy. I agree with antibiotic therapy and further and his mental with possible pleural tap. Prognosis is guarded. Patient is nonverbal and a macerated. Most of the information is gathered from the chart and risk control consultant notes Review of Systems As per the chart Past Medical History Past Medical History: Atrial Fibrillation, Cancer, Eye Disorder, GERD/Reflux, Hearing Disorder / Deafness, Hypertension, Osteoarthritis (OA), Pulmonary Emb olus (PE), Skin Disorder Additional Past Medical History / Comment(s): Hx Colon RESECTION FOR MASS. Skin Cancer. HIATAL HERNIA. HAS LENS IMPLANTS AHMET EYES. History of Any Multi-Drug Resistant Organisms: None Reported Past Surgical History: Appendectomy, Back Surgery, Bowel Resection, Hernia Repair, Joint Replacement Additional Past Surgical History / Comment(s): REVISION TOTAL LT HIP. AHMET KNEES & HIPS REPLACEMENTS. Fusion of lower back, neck fusion. BOWEL RES: PRECANCEROUS MASS. AHMET. cataracts. Ahmet leg LASER VEIN SURG. Removal of skin cancer from scalp and chest. surgery for fx nose. rt shoulder rotator cuff. EGD X2, LAST 08/2016.10-11-16 BROCK FUNDOPLICATION Past Anesthesia/Blood Transfusion Reactions: No Reported Reaction Past Psychological History: No Psychological Hx Reported Smoking Status: Never smoker Past Alcohol Use History: Occasional Past Drug Use History: None Reported - Past Family History Sister(s) Family Medical History: Cancer Mother Family Medical History: Cancer Additional Family Medical History / Comment(s): BLADDER Father Family Medical History: Cancer Additional Family Medical History / Comment(s): LEUKEMIA Brother(s) Family Medical History: Cancer Additional Family Medical History / Comment(s): MULTIPLE MYELOMA Medications and Allergies Home Medications Medication Instructions Recorded Confirmed Type lisinopriL 40 mg PEG/G-TUBE DAILY@0800 07/15 09/02/20 History Acetaminophen Oral Susp [Tylenol] 650 mg PEG/G-TUBE Q4H PRN 09/02/20 09/02/20 History Amoxic-Pot Clav 250-62.5MG/5Ml 12 ml PEJ/J-TUBE BID@0800,1700 09/02/20 09/02/20 History [Augmentin 250-62.5 mg/5 ml Susp.] Aspirin 81 mg PEG/G-TUBE DAILY@1700 09/02/20 09/02/20 History Carbidopa/Levodopa [Parcopa 25-100 1 tab PEG/G-TUBE TID@0800,1200,1700 09/02/20 09/02/20 History mg Odt] Collagenase [Santyl] 1 applic TOPICAL DAILY 09/02/20 09/02/20 History Famotidine [Pepcid] 20 mg PEG/G-TUBE BID@0800,2100 09/02/20 09/02/20 History Ipratropium-Albuterol Nebulize 3 ml INHALATION RT-QID PRN 09/02/20 09/02/20 History [Duoneb 0.5 mg-3 mg/3 ml Soln] Magnesium Hydroxide [Milk of 7,200 mg PEG/G-TUBE Q48H PRN 09/02/20 09/02/20 History Magnesia Concentrate] Metoprolol Tartrate [Lopressor] 25 mg PEG/G-TUBE BID@0800,1700 09/02/20 09/02/20 History Na Phos,M-B/Na Phos,Di-Ba [Fleet 133 ml RECTAL DAILY PRN 09/02/20 09/02/20 History Adult] Oxybutynin Chloride [Ditropan] 5 mg PEG/G-TUBE BID@0800,1700 09/02/20 09/02/20 History Saliva Stimulant Agents Comb.3 2 spray MUCOUS MEM DAILY PRN 09/02/20 09/02/20 History [Biotene Moisturizing Mouth] Saliva Stimulant Agents Comb.3 2 spray MUCOUS MEM 09/02/20 09/02/20 History [Biotene Moisturizing Mouth] TID@0800,1400,2100 Vits A and D/White Pet/Lanolin [A 1 applic TOPICAL BID 09/02/20 09/02/20 History and D Ointment] bisacodyL [Bisacodyl] 10 mg RECTAL DAILY PRN 09/02/20 09/02/20 History hydrALAZINE HCL [Apresoline] 100 mg PEG/G-TUBE 09/02/20 09/02/20 History TID@0800,1200,1700 Allergies Allergy/AdvReac Type Severity Reaction Status Date / Time [facility]fl[facility] Allergy Rash/Hives Verified 09/02/20 16:06 ciprofloxacin HCl Allergy Rash/Hives Verified 09/02/20 16:06 [facility] Physical Exam Vitals: Vital Signs Temp Pulse Pulse Resp BP BP Pulse Ox 09/03/20 12:34 80 09/03/20 12:18 80 09/03/20 12:00 97.9 F 64 22 146/69 99 09/03/20 09:20 84 09/03/20 09:05 80 09/03/20 08:00 97.9 F 72 22 127/73 100 09/03/20 04:00 98.6 F 60 25 H 156/71 100 09/03/20 00:00 98.7 F 79 28 H 132/60 100 09/02/20 21:30 98.2 F 72 30 H 138/65 100 09/02/20 20:47 98.4 F 79 22 131/70 99 09/02/20 20:34 98.4 F 79 22 131/70 99 09/02/20 19:11 82 18 121/70 98 09/02/20 17:52 75 20 123/76 97 09/02/20 16:33 84 09/02/20 16:27 74 22 132/63 99 Intake and Output 09/03/20 09/03/20 09/03/20 06:59 14:59 22:59 Intake Total 0 Output Total 700 1400 Balance -700 -1400 Intake: Intake, IV Titration 0 Amount Piperacillin-Tazobactam 3 0 .375 gm In Sodium Chloride 0.9% 100 ml @ 200 mls/hr IVPB ONCE STA Rx#:[id number] Output: Urine 700 1400 Other: Voiding Method Indwelling Catheter Indwelling Catheter Weight 64.5 kg 64.5 kg GENERAL EXAM: Patient is lethargic and nonverbal HEENT: Normocephalic. NECK: No masses, no nuchal rigidity. CHEST: No chest wall deformity. LUNGS: Diminished breath sounds with some rhonchi HEART: S1 and S2 normal . Irregular heart rhythm ABDOMEN: No hepatosplenomegaly, normal bowel sounds, no guarding or rigidity. SKIN: No rashes CENTRAL NERVOUS SYSTEM: Lethargic EXTREMITIES: No cyanosis, clubbing or edema. Results 09/02/20 15:47 09/02/20 15:47 Cardiac Enzymes 09/02/20 09/02/20 09/02/20 Range/Units 15:47 15:47 18:38 AST 57 (17-59) U/L Troponin I 0.014 0.015 (0.000-0.034) ng/mL 09/02/20 Range/Units 21:31 AST (17-59) U/L Troponin I 0.021 (0.000-0.034) ng/mL Coagulation 09/02/20 Range/Units 15:47 PT 10.2 (9.0-12.0) sec APTT 24.0 (22.0-30.0) sec CBC 09/02/20 Range/Units 15:47 WBC 21.5 H (3.8-10.6) k/uL RBC 3.02 L (4.30-5.90) m/uL Hgb 8.5 L (13.0-17.5) gm/dL Hct 28.4 L (39.0-53.0) % Plt Count 653 H (150-450) k/uL Comprehensive Metabolic Panel 09/02/20 Range/Units 15:47 Sodium 137 (137-145) mmol/L Potassium 4.5 (3.5-5.1) mmol/L Chloride 105 (98-107) mmol/L Carbon Dioxide 30 (22-30) mmol/L BUN 31 H (9-20) mg/dL Creatinine 0.48 L (0.66-1.25) mg/dL Glucose 124 H (74-99) mg/dL Calcium 8.8 (8.4-10.2) mg/dL AST 57 (17-59) U/L ALT 21 (4-49) U/L Alkaline Phosphatase 212 H (38-126) U/L Total Protein 5.9 L (6.3-8.2) g/dL Albumin 2.3 L (3.5-5.0) g/dL Current Medications Generic Name Dose Route Start Last Admin Trade Name Freq PRN Reason Stop Dose Admin Acetaminophen 650 mg 09/02/20 22:13 Acetaminophen Tab 325 Mg Tab PEG/G-TUBE Q4H PRN Pain Albuterol/Ipratropium 3 ml 09/02/20 22:03 09/03/20 12:17 Ipratropium-Albuterol 3 Ml Neb INHALATION 3 ml RT-QID PRN Administration Shortness Of Breath Or Wheezing Aspirin 81 mg 09/03/20 17:00 Aspirin 81 Mg PEG/G-TUBE DAILY@1700 ERIC Bisacodyl 10 mg 09/02/20 22:03 Bisacodyl 10 Mg Supp RECTAL DAILY PRN Constipation Carbidopa/Levodopa 1 each 09/03/20 08:00 09/03/20 12:36 Carbidopa-Levodopa 25-100 Mg 1 Each Tab PEG/G-TUBE 1 each TID@0800,1200,1700 ERIC Administration Famotidine 20 mg 09/03/20 08:00 09/03/20 09:25 Famotidine 20 Mg Tab PEG/G-TUBE 20 mg BID@0800,2100 ERIC Administration Furosemide 40 mg 09/02/20 17:00 09/03/20 05:18 Furosemide 10 Mg/Ml 4 Ml Vial IV 40 mg Q12H ERIC Administration Heparin Sodium (Porcine) 5,000 unit 09/03/20 16:00 Heparin Sodium,Porcine 5,000 Unit/Ml 1 Ml Vial SQ Q8HR ERIC Hydralazine HCl 100 mg 09/03/20 08:00 09/03/20 12:36 Hydralazine Hcl 50 Mg Tab PEG/G-TUBE 100 mg TID@0800,1200,1700 ERIC Administration Vancomycin HCl 1,250 mg/ 250 mls @ 125 mls/hr 09/03/20 09:00 09/03/20 09:26 Sodium Chloride IVPB 125 mls/hr Q12HR ERIC Administration Piperacillin Sod/Tazobactam 100 mls @ 25 mls/hr 09/03/20 11:00 09/03/20 12:36 Sod 3.375 gm/ Sodium Chloride IVPB 25 mls/hr Q8H ERIC Administration Lisinopril 40 mg 09/03/20 08:00 09/03/20 09:25 Lisinopril 20 Mg Tab PEG/G-TUBE 40 mg DAILY@0800 ERIC Administration Magnesium Hydroxide 7,200 mg 09/02/20 22:03 Magnesium Hydroxide 2,400 Mg/10 Ml Cup PEG/G-TUBE Q48H PRN Constipation Metoprolol Tartrate 25 mg 09/03/20 08:00 09/03/20 09:25 Metoprolol Tartrate 25 Mg Tab PEG/G-TUBE 25 mg BID@0800,1700 [facility] Administration Naloxone HCl 0.2 mg 09/03/20 14:22 Naloxone 0.4 Mg/Ml 1 Ml Vial IV Q2M PRN Opioid Reversal Santyl (Collagenase) 1 each 09/04/20 09:00 250 Unit/Gm TOPICAL Ointment DAILY [facility] Oxybutynin Chloride 5 mg 09/03/20 08:00 09/03/20 09:25 Oxybutynin Chloride 5 Mg Tab PEG/G-TUBE 5 mg BID@0800,1700 [facility] Administration Sodium Biphosphate/Sodium Phosphate 133 ml 09/02/20 22:03 Na Phos,M-B/Na Phos,Di-Ba 133 Ml Enema RECTAL DAILY PRN Constipation Intake and Output 09/03/20 09/03/20 09/03/20 06:59 14:59 22:59 Intake Total 0 Output Total 700 1400 Balance -700 -1400 Intake: Intake, IV Titration 0 Amount Piperacillin-Tazobactam 3 0 .375 gm In Sodium Chloride 0.9% 100 ml @ 200 mls/hr IVPB ONCE STA Rx#:[id number] Output: Urine 700 1400 Other: Voiding Method Indwelling Catheter Indwelling Catheter Weight 64.5 kg 64.5 kg Patient Weight 09/04/20 06:59 Weight 64.5 kg 09/02/20 15:47 09/02/20 15:47 EKG Interpretations (text) Atrial fibrillation with controlled ventricular response Assessment and Plan (1) Aspiration pneumonia Current Visit: Yes Status: Acute Code(s): J69.0 - PNEUMONITIS DUE TO INHALATION OF FOOD AND VOMIT SNOMED Code(s): 033969353 (2) Acute respiratory failure Current Visit: Yes Status: Acute Code(s): J96.00 - ACUTE RESPIRATORY FAILURE, UNSP W HYPOXIA OR HYPERCAPNIA SNOMED Code(s): 22254555 (3) Achalasia of cardia Current Visit: No Status: Acute Code(s): K22.0 - ACHALASIA OF CARDIA SNOMED Code(s): 03961251 (4) Atrial fibrillation Current Visit: No Status: Acute Code(s): I48.91 - UNSPECIFIED ATRIAL FIBRILLATION SNOMED Code(s): 80145719 (5) History of pulmonary embolus (PE) Current Visit: No Status: Acute Code(s): Z86.711 - PERSONAL HISTORY OF PULMONARY EMBOLISM SNOMED Code(s): 553444094 (6) Diastolic CHF Current Visit: Yes Status: Acute Code(s): I50.30 - UNSPECIFIED DIASTOLIC (CONGESTIVE) HEART FAILURE SNOMED Code(s): 075386178 Plan: This patient is mainly admitted with aspiration pneumonia and respiratory failure. There is competent of acute on chronic diastolic CHF. Patient also has chronic atrial fibrillation. Echo showed normal LV function. We'll continue current medical therapy. We'll follow
--- NOTE | 2020-09-03 16:38 | PCN ---
PROCEDURE NOTE PROCEDURE PERFORMED: Right-sided thoracentesis. PREOPERATIVE DIAGNOSIS: Right-sided pleural effusion. POSTOP DIAGNOSIS: Right-sided pleural effusion. This was basically an emergency type of thoracentesis/diagnostic and therapeutic. PROCEDURE: Patient was placed in a sitting upright position, and the area below the right scapula was prepared in a sterile fashion and drapes were applied. The fluid was earlier localized by ultrasound. At the level of the 8th intercostal space and tip of the scapula, the area was anesthetized locally with lidocaine and 2 mL of lidocaine were used. Then, a 26-gauge needle was inserted, fluid was localized with the needle. Then a small incision was made and needle and catheter were advanced at the same site into the pleural space. A very small amount of fluid was drained, roughly no more than 150 cc total of freely flowing fluid. It was thin, transudative looking in nature, did not look thick and it did not look exudative in nature. Again, no more than 150 cc of fluid drained from the right pleural space. The procedure was well tolerated. No evidence of any immediate complications. The fluid was sent for different diagnostic studies. My previous concern was empyema, however, from the appearance of the fluid, this is not an empyema. MMODL / IJN: [id number] /
[2020-09-03 20:35] LABS: Appearance,BF Clear; Color,BF Yellow; Nucleated Cells, Body Fluid 28 /uL; RBC, Body Fluid 39 /uL
[2020-09-03 21:23] LABS: Mononuclear WBC,Body Fluid 10 %; Polynuclear WBC,Body Fluid 90 %; Total Cells Counted,Body Fluid 100
[2020-09-03 23:32] LABS: Glucose, BF Source Pleural Fluid; Glucose, Body Fluid 69 mg/dL; LDH, Body Fluid Source Pleural Fluid; Total Protein, Body Fluid 2100 mg/dL
[2020-09-04 05:29] LABS: Basophils # (A) 0.1 k/uL (0-0.2); Basophils % (A) 1 %; Eosinophils # (A) 0.2 k/uL (0-0.7); Eosinophils % (A) 2 %; HCT 25.9 % (39.0-53.0); HGB 7.4 gm/dL (13.0-17.5); Hypochromasia Marked; Lymphocytes # (A) 1.7 k/uL (1.0-4.8); Lymphocytes % (A) 13 %; MCHC 28.5 g/dL (31.0-37.0); MCV 94.5 fL (80.0-100.0); Mean Platelet Volume 8.5; Monocytes # (A) 0.3 k/uL (0-1.0); Monocytes % (A) 3 %; Neutrophils # (A) 10.8 k/uL (1.3-7.7); Neutrophils % (A) 81 %; Platelet Count 566 k/uL (150-450); RBC 2.74 m/uL (4.30-5.90); RDW 15.7 % (11.5-15.5); WBC 13.3 k/uL (3.8-10.6)
[2020-09-04] MEDS: PIPERACILLIN-TAZOBACTAM 3.375 GM in SODIUM CHLORIDE 0.9% 100 ML IVPB SCH ×3 (05:30→18:08)
[2020-09-04] MEDS: FUROSEMIDE 10 MG/ML 4 ML VIAL IV SCH ×2 (05:30→16:28)
[2020-09-04 05:51] LABS: ALT 19 U/L (4-49); AST 39 U/L (17-59); African American GFR (CKD) >90 (>60 ml/min/1.73 sqM); Albumin 2.2 g/dL (3.5-5.0); Alkaline Phosphatase 176 U/L (38-126); Anion Gap 3 mmol/L; Blood Urea Nitrogen 36 mg/dL (9-20); Calcium 8.5 mg/dL (8.4-10.2); Carbon Dioxide 32 mmol/L (22-30); Chloride 106 mmol/L (98-107); Glucose 120 mg/dL (74-99); Non-African American GFR(CKD) 89 (>60 ml/min/1.73 sqM); Potassium 3.5 mmol/L (3.5-5.1); Sodium 141 mmol/L (137-145); Total Bilirubin 0.7 mg/dL (0.2-1.3); Total Protein 5.5 g/dL (6.3-8.2)
[2020-09-04] MEDS ORDERED: Potassium Replacement Protocol 1 EACH MISC MISCELLANE PRN (06:01)
[2020-09-04] MEDS: POTASSIUM BICARBONATE/CIT AC 20 MEQ TABLET.EFF NG-TUBE SCH ×2 (06:46→08:06)
--- NOTE | 2020-09-04 07:23 | XR ---
EXAMINATION TYPE: XR chest 1V DATE OF EXAM: 09/04/2020 HISTORY: Shortness of breath. COMPARISON: 09/03/2020 TECHNIQUE: Single view of the chest is submitted. FINDINGS: Demonstrated are scattered senescent parenchymal change. There is a layering effusion noted on the right. Underlying infiltrate or atelectasis is not excluded . Overall appearance is stable. Left basilar density is also unchanged. The heart is stable. Hilar and mediastinal structures are within normal limits. Degenerative changes are seen of the dorsal spine. IMPRESSION: 1. There is a layering effusion noted on the right. Underlying infiltrate or atelectasis is not excl uded. Overall appearance is stable. Left basilar density is also unchanged.
[2020-09-04] MEDS: IPRATROPIUM-ALBUTEROL 3 ML NEB INHALATION PRN ×2 (07:30→11:20)
[2020-09-04] MEDS: lisinopriL 20 MG TAB PEG/G-TUBE SCH (08:05)
[2020-09-04] MEDS: METOPROLOL TARTRATE 25 MG TAB PEG/G-TUBE SCH ×2 (08:06→16:28)
[2020-09-04] MEDS: CARBIDOPA-LEVODOPA 25-100 MG 1 EACH TAB PEG/G-TUBE SCH ×3 (08:06→16:28)
[2020-09-04] MEDS: FAMOTIDINE 20 MG TAB PEG/G-TUBE SCH ×2 (08:06→21:48)
[2020-09-04] MEDS: OXYBUTYNIN CHLORIDE 5 MG TAB PEG/G-TUBE SCH ×2 (08:06→16:28)
[2020-09-04] MEDS: hydrALAZINE HCL 50 MG TAB PEG/G-TUBE SCH ×3 (08:06→16:28)
[2020-09-04] MEDS: HEPARIN SODIUM,PORCINE 5,000 UNIT/ML 1 ML VIAL SQ SCH ×3 (08:06→22:56)
[2020-09-04] MEDS: VANCOMYCIN 1,250 MG in SODIUM CHLORIDE 0.9% 250 ML IVPB SCH ×2 (10:00→21:59)
--- NOTE | 2020-09-04 10:21 | P.PN ---
Subjective Progress Note Date: 09/04/20 This 75-year-old gentleman is admitted with suspected aspiration pneumonia and right-sided pleural effusion and possible concomitant diastolic CHF. His echo showed normal LV function. He is diuresing well. Overall he seemed to be feeling a little better. Chest x-ray showed some improvement. Continue current medical therapy. We'll follow Objective - Vital Signs Vital signs: Vital Signs Temp 98.3 F 09/04/20 08:00 Pulse 82 09/04/20 08:00 Resp 23 09/04/20 08:00 BP 150/126 09/04/20 08:00 Pulse Ox 97 09/04/20 08:00 Intake & Output 09/03/20 09/04/20 09/04/20 18:59 06:59 18:59 Intake Total 125 1095 160 Output Total 2250 920 725 Balance -2125 175 -565 Weight 64.5 kg 62.8 kg Intake: Intake, IV Titration 125 375 Amount Piperacillin-Tazobactam 3 125 125 .375 gm In Sodium Chloride 0.9% 100 ml @ 25 mls/hr IVPB Q8H ERIC Rx#: [id number] Vancomycin 1,250 mg In 250 Sodium Chloride 0.9% 250 ml @ 125 mls/hr IVPB Q12HR ERIC Rx#:[id number] Tube Feeding 720 130 Other 30 Output: Urine 2250 920 725 Other: Voiding Method Indwelling Catheter Indwelling Catheter Indwelling Catheter # Bowel Movements 1 - Exam GENERAL EXAM: Patient is alert and oriented and appears frail and weak HEENT: Normocephalic. Normal reaction of pupils, equal size, normal range of extraocular motion. No erythema or exudates in the throat. NECK: No masses, no nuchal rigidity. CHEST: No chest wall deformity. LUNGS: Diminished breath sounds right base HEART: S1 and S2 normal with no audible mumurs or gallops. Regular rhythm, femorals equal on both sides.. ABDOMEN: No hepatosplenomegaly, normal bowel sounds, no guarding or rigidity. SKIN: No rashes CENTRAL NERVOUS SYSTEM: No focal deficits. EXTREMITIES: Mild edema - Labs CBC & Chem 7: 09/04/20 05:16 09/04/20 05:16 Labs: Abnormal Lab Results - Last 24 Hours (Table) 09/04/20 09/04/20 Range/Units 05:16 05:16 WBC 13.3 H (3.8-10.6) k/uL RBC 2.74 L (4.30-5.90) m/uL Hgb 7.4 L (13.0-17.5) gm/dL Hct 25.9 L (39.0-53.0) % MCHC 28.5 L (31.0-37.0) g/dL RDW 15.7 H (11.5-15.5) % Plt Count 566 H (150-450) k/uL Neutrophils # 10.8 H (1.3-7.7) k/uL Carbon Dioxide 32 H (22-30) mmol/L BUN 36 H (9-20) mg/dL Glucose 120 H (74-99) mg/dL Alkaline Phosphatase 176 H (38-126) U/L Total Protein 5.5 L (6.3-8.2) g/dL Albumin 2.2 L (3.5-5.0) g/dL Microbiology - Last 24 Hours (Table) 09/03/20 15:10 Gram Stain - Preliminary Pleural Fluid Body Fluid Culture - Preliminary Assessment and Plan (1) Aspiration pneumonia Current Visit: Yes Status: Acute Code(s): J69.0 - PNEUMONITIS DUE TO INHALATION OF FOOD AND VOMIT SNOMED Code(s): 773459398 (2) Acute respiratory failure Current Visit: Yes Status: Acute Code(s): J96.00 - ACUTE RESPIRATORY FAILURE, UNSP W HYPOXIA OR HYPERCAPNIA SNOMED Code(s): 96717939 (3) Achalasia of cardia Current Visit: No Status: Acute Code(s): K22.0 - ACHALASIA OF CARDIA SNOMED Code(s): 09033303 (4) Atrial fibrillation Current Visit: No Status: Acute Code(s): I48.91 - UNSPECIFIED ATRIAL FIBRILLATION SNOMED Code(s): 93384354 (5) History of pulmonary embolus (PE) Current Visit: No Status: Acute Code(s): Z86.711 - PERSONAL HISTORY OF PULMONARY EMBOLISM SNOMED Code(s): 551394980 (6) Diastolic CHF Current Visit: Yes Status: Acute Code(s): I50.30 - UNSPECIFIED DIASTOLIC (CONGESTIVE) HEART FAILURE SNOMED Code(s): 229130257 Plan: Patient is diuresing well. Vital signs are stable. Continue current medical therapy
--- NOTE | 2020-09-04 12:03 | P.PN ---
Subjective Progress Note Date: 09/04/20 Principal diagnosis: Severe dyspnea and shortness of breath, congestive heart failure, aspiration pneumonia with right-sided pleural effusion, change in mental status, sepsis, severe achalasia 75-year-old male with past medical history of chronic A. fib, hypertension, congestive heart failure, previous history of pulmonary embolism, lower esophageal sphincter dysfunction. Patient was hospitalized in [facility] from 07/19/2020 till 08/24/2020 for extensive achalasia and esophageal sphincter dysfunction not been able to swallow 8 or drink anything for long time no fin ding consistent with Ye esophagus at the time or esophageal cancer was found. Patient was care for by Dr. Eastman cardiothoracic surgeon before patient presented to [facility] was having persistent symptom with nausea vomiting not been able to keep any fluid or food down for long time he in the become malnourished. He is known to have history of achalasia with lower sphincter dysfunction post robotic myomectomy in the past at the time patient was admitted to [place] patient was in acute respiratory failure secondary to aspiration pneumonia and possible emphysema was seen by multiple subspecialists in the hospital was in for over a month ended up having pleural effusion, acute GI bleed, acute blood loss anemia, coagulopathy his achalasia was much worse patient ended up having PEG tube feeding which attached to J-tube which was replaced in the hospital patient was fed to with since. 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 Addition patient found to have large sacral and decubitus unstageable ulcer been managed by wound care at the time. Patient found to be in acute respiratory distress with significant shortness of breath dyspnea and severe hypoxia despite having high flow O2 patient continued to decline ended up coming to the emergency department at [facility] where was seen and evaluated his chest x-ray showed significant fluid overload more like congestive heart failure. Patient was diagnosed with aspiration pneumonia, respiratory failure from COPD and CHF was admitted to the hospital start him on IV antibiotic IV diuretics patient be seen cardiology and pulmonary as well. 09/04: Patient is more awake alert today able to answer some question he was seen pulmonary been treated for aspiration pneumonia with pleural effusion might require thoracentesis for possible infection and abscess in the pleural space in the meanwhile continue current management still on feeding per PEG tube still in the ICU currently. Objective - Vital Signs Vital signs: Vital Signs Temp 98.3 F 09/04/20 08:00 Pulse 72 09/04/20 11:49 Resp 23 09/04/20 08:00 BP 150/126 09/04/20 08:00 Pulse Ox 97 09/04/20 08:00 Intake & Output 09/03/20 09/04/20 09/04/20 18:59 06:59 18:59 Intake Total 125 1095 160 Output Total 2250 920 725 Balance -2125 175 -565 Weight 64.5 kg 62.8 kg Intake: Intake, IV Titration 125 375 Amount Piperacillin-Tazobactam 3 125 125 .375 gm In Sodium Chloride 0.9% 100 ml @ 25 mls/hr IVPB Q8H [facility] Rx#: [id number] Vancomycin 1,250 mg In 250 Sodium Chloride 0.9% 250 ml @ 125 mls/hr IVPB Q12HR [facility] Rx#:[id number] Tube Feeding 720 130 Other 30 Output: Urine 2250 920 725 Other: Voiding Method Indwelling Catheter Indwelling Catheter Indwelling Catheter # Bowel Movements 1 - Exam Review of Systems CONSTITUTIONAL: Malnourished looks much older than his age mildly spot to distress. EYES: No icterus sclerae, no conjunctivitis. EARS, NOSE, MOUTH, THROAT, and FACE: No sore throat, lymphadenopathy, carotid bruits or deformity. RESPIRATORY: Significant dyspnea and shortness of breath with worsening cough and wheezes. CARDIOVASCULAR: Positive PND orthopnea Pepcid patient with worsening shortness of breath and CHF. GASTROINTESTINAL: Achalasia with severe dysphagia with PEG and J feeding. GENITOURINARY: Negative for Hematuria or UTI, no kidney stones. Goodson catheter. INTEGUMENT/BREAST: Negative for any muscular injury with mild osteoarthritis. Large sacral and decubitus ulcer unstageable.. HEMATOLOGIC/LYMPHATIC: Negative for bleed or purpura. MUSCULOSKELTAL: Negative for Myalgia or arthralgia. NEURLOGICAL: No LOC, Sz or syncope, blurred vision dizziness or abnormality.. BEHAVIORAL/PSYCH: Negative. ENDOCRINE: Negative. Physical Exam Vitals: General Appearance: Confuse significant shortness of breath with mild respiratory distress. Neck HEENT: Supple, no lymphadenopathy, no thyroid enlargement, no carotid bruits. Very dry mucosa. Lungs: Decreased breath sound bilaterally with fine rhonchi positive crackles positive mild expiratory wheezes as well. Chest Wall: Decrease expansion with deep inspiration no tenderness and no deformity was found on exam, no costochondral pain or discomfort. Heart: Irregular rate and rhythm, S1, S2 normal, positive S3 positive JVD with s ystolic murmur. Back: Symmetric, no curvature, ROM normal, no CVA tenderness. Abdomen: Soft possible sound, there is PEG tube with J port slight drainage around the tube area. Extremities: Extremities normal, atraumatic, no cyanosis or edema. Slight increased swelling in the right compared to the left specially the femoral area. Pulses: 2+ and symmetric. Skin: Skin color, texture, tugor normal, no rashes or lesions. Significant decub and sacrum ulcerated area unstageable very large been taking care of by wound care. Neurologic: Alert quite bit confuse Leon nerve II-12 intact positive gene ralized weakness not been able to do gait exam. - Labs CBC & Chem 7: 09/04/20 05:16 09/04/20 05:16 Labs: Abnormal Lab Results - Last 24 Hours (Table) 09/04/20 09/04/20 Range/Units 05:16 05:16 WBC 13.3 H (3.8-10.6) k/uL RBC 2.74 L (4.30-5.90) m/uL Hgb 7.4 L (13.0-17.5) gm/dL Hct 25.9 L (39.0-53.0) % MCHC 28.5 L (31.0-37.0) g/dL RDW 15.7 H (11.5-15.5) % Plt Count 566 H (150-450) k/uL Neutrophils # 10.8 H (1.3-7.7) k/uL Carbon Dioxide 32 H (22-30) mmol/L BUN 36 H (9-20) mg/dL Glucose 120 H (74-99) mg/dL Alkaline Phosphatase 176 H (38-126) U/L Total Protein 5.5 L (6.3-8.2) g/dL Albumin 2.2 L (3.5-5.0) g/dL Microbiology - Last 24 Hours (Table) 09/03/20 15:10 Gram Stain - Preliminary Pleural Fluid Body Fluid Culture - Preliminary Assessment and Plan Assessment: 1 acute respiratory failure: Combination of CHF, COPD along with aspiration pne umonia, patient been treated currently for gram negatives pneumonia along with suspected in [place] recently with pleural effusion which is better. Patient will be started on vancomycin and add Zosyn at this point will be seen pulmonary continue high flow O2 and if needed BiPAP. 2 aspiration pneumonia: Was treated for gram-negative with IV antibiotic for 2 weeks before coming to [facility] less than a week ago patient will be back on gram-negative coverage. 3 congestive heart failure exacerbation: With his current finding echocardiogram will be done we'll be seeing cardiology continue current management. 4 recent history of GI bleed: Continue to watch for any significant drop in hemoglobin. 5 severe achalasia: Patient has not been able to swallow any food or fluid and has been fed via PEG feeding. Continue current management. 6 right-sided pleural effusion: Patient might require thoracentesis for more definite answer there is an infection around the pleural space. 7 COPD: Continue patient on DuoNeb and Pulmicort. 8 A. fib with RVR: Patient is on medical management pulse rates under control and metoprolol 25 mg twice a day patient is not on any anticoagulation because of the recent GI bleed he had. 9 severe PAD with right femoral occlusion was seen by vascular. 10 urinary retention and incontinence: Patient is on Goodson catheter currently. 11 history of pulmonary embolism: Patient could not go back on anticoagulation yet because of the recent GI bleed. 12 unstageable decubitus ulcer: Wound care continue topical care as well especially mattress and turn patient more frequent. 13 Parkinson disease: Was started on carbidopa levodopa recently continue medication. 14 incidental abdominal aortic aneurysm: Size has been small dyspnea and follow- up as an outpatient. 15 GI prophylaxis: Continue patient on pantoprazole IV. 16 DVT prophylaxis: Patient will be on heparin 5000 units subcutaneous twice a day. CODE STATUS: Full code. Patient is still doing slightly but better clinically but he has very high morbidity and mortality.
--- NOTE | 2020-09-04 13:56 | P.PN ---
Subjective Progress Note Date: 09/04/20 Principal diagnosis: Acute on chronic hypoxic respiratory failure secondary to aspiration pneumonia and diastolic congestive heart failure This is a 75-year-old white male who seems to be nonverbal, I was asked to see him on consultation for what seems to be an extensive right-sided pneumonia and right-sided pleural effusion. Based on the chart, patient is known to have history of multiple medical problems including chronic atrial fibrillation, hypertension, congestive heart failure, previous history of pulmonary embolism, lower esophageal dysfunction, and the patient was recently at [facility] from 07/19 until 1027 for extensive achalasia and esophageal sphincter dysfunction. Apparently he was seen by multiple consultants and he was eventually discharged to a [facility]. Patient had a PEG tube in place, used mostly for enteral feeding. While at the facility/rehab facility, patient was noted to have worsening shortness of breath, and severe hypoxia in spite of high flow OXYGEN. Brought into the emergency room yesterday, chest x-ray showed extensive airspace disease and right-sided pleural effusion, hence he was admitted, started on antibiotics, and I was asked to see him on consultation. Upon my evaluation, patient was noted to be on BiPAP, and patient was nonverbal, seems to be in moderate respiratory distress, hence I have recommended transfe rring the patient to the ICU, in the meantime I have recommended an ultrasound of the chest, and I would likely perform a right-sided thoracentesis on this patient. The right-sided pleural effusion could be parapneumonic, or could be related to congestive heart failure since the patient is known to have previous history of CHF. Patient was reevaluated today on 09/04/20, patient is on 4 L nasal cannula, remains on antibiotics in the form of Zosyn and vancomycin, remains on diuretics and Lasix at 40 mg IV push every 12 hours, off BiPAP this morning, patient seems to be doing much better compared to how he was yesterday. At least the patient is more awake, follows simple instructions, and does not seem to be in any distress. Hence after evaluating his chest x-ray and evaluating the results of the pleural effusion which is likely transudate of although the LDH is high, but the protein was low on the pleural effusion. It could be a pleural effusion of congestive heart failure and parapneumonic effusion at the same time. I did recommend we continue antibiotics and diuretics, and I'm recommending that the patient could be transferred out of the ICU to a cardiac floor with monitor. C BC showed WBC count of 13.3 hemoglobin is 7.4 Objective - Vital Signs Vital signs: Vital Signs Temp 98.0 F 09/04/20 12:00 Pulse 65 09/04/20 12:00 Resp 12 09/04/20 12:00 BP 113/53 09/04/20 12:00 Pulse Ox 95 09/04/20 12:00 Intake & Output 09/03/20 09/04/20 09/04/20 18:59 06:59 18:59 Intake Total 125 1095 160 Output Total 2250 920 725 Balance -2125 175 -565 Weight 64.5 kg 62.8 kg Intake: Intake, IV Titration 125 375 Amount Piperacillin-Tazobactam 3 125 125 .375 gm In Sodium Chloride 0.9% 100 ml @ 25 mls/hr IVPB Q8H [facility] Rx#: [id number] Vancomycin 1,250 mg In 250 Sodium Chloride 0.9% 250 ml @ 125 mls/hr IVPB Q12HR [facility] Rx#:[id number] Tube Feeding 720 130 Other 30 Output: Urine 2250 920 725 Other: Voiding Method Indwelling Catheter Indwelling Catheter Indwelling Catheter # Bowel Movements 1 - Exam eneral Appearance: Revealed a 75-year-old white male on 4 L nasal cannula and his O2 saturation is in the 90s HEENT: PERRLA, EOMI, no icterus.. Dry mucous membranes noted Lungs: Symmetrical chest expansion, diminished breath sounds at the right base. No rhonchi no wheezes. Chest Symmetrical chest expansion. Heart: Irregular rate and rhythm, S1, S2 normal, 2/6 systolic murmur thought the precordium. Abdomen: Soft possible sound, there is PEG tube with J port slight drainage around the tube area. Extremities: No clubbing, edema or cyanosis, Pulses: 2+ and symmetric. Skin: decub and sacrum ulcerated area unstageable Neurologic: Awake today, not as confused, follows all simple instructions and seems to be verbal. - Labs CBC & Chem 7: 09/04/20 05:16 09/04/20 05:16 Labs: Abnormal Lab Results - Last 24 Hours (Table) 09/04/20 09/04/20 Range/Units 05:16 05:16 WBC 13.3 H (3.8-10.6) k/uL RBC 2.74 L (4.30-5.90) m/uL Hgb 7.4 L (13.0-17.5) gm/dL Hct 25.9 L (39.0-53.0) % MCHC 28.5 L (31.0-37.0) g/dL RDW 15.7 H (11.5-15.5) % Plt Count 566 H (150-450) k/uL Neutrophils # 10.8 H (1.3-7.7) k/uL Carbon Dioxide 32 H (22-30) mmol/L BUN 36 H (9-20) mg/dL Glucose 120 H (74-99) mg/dL Alkaline Phosphatase 176 H (38-126) U/L Total Protein 5.5 L (6.3-8.2) g/dL Albumin 2.2 L (3.5-5.0) g/dL Microbiology - Last 24 Hours (Table) 09/03/20 15:10 Gram Stain - Preliminary Pleural Fluid Body Fluid Culture - Preliminary Assessment and Plan Assessment: Impression: Acute on chronic hypoxic respiratory failure Strongly suspect aspiration pneumonia and pleural effusion with low protein and relatively high LDH, could not to drain more than 1 50 mL of fluid from the righ t pleural space although the ultrasound showed a bigger pocket may have to consider repeat ultrasound and repeat thoracentesis if the patient does not improve with diuretics. Possible diastolic congestive heart failure. Echocardiogram showed good LV function History of severe achalasia History of underlying COPD Chronic atrial fibrillation History of peripheral vessel occlusive disease with a right femoral occlusion History of urinary incontinence History of pulmonary embolism On stage of old decubitus ulcer History of Parkinson's disease Recommendation: Continue antibiotics. Continue diuretics Transfer patient out of the ICU to a monitor bed on selective Pleural effusion studies are still pending however it did show relatively low protein and elevated LDH. Not clear-cut transudate it is likely exudative with transudate of features. Overall prognosis is extremely poor and guarded considering the history of this patient. We'll continue to follow. Time with Patient: Less than 30
[2020-09-04] MEDS: ASPIRIN 81 MG PEG/G-TUBE SCH (16:28)
[2020-09-04] MEDS: SANTYL 250 UNIT/GM TOPICAL SCH (16:29)
[2020-09-04] MEDS ORDERED: VANCOMYCIN TROUGH DUE 1 EACH MISC MISCELLANE ONE (20:00)
[2020-09-05 00:06] LABS: Glucose,Whole Blood 129 mg/dL (75-99)
[2020-09-05] MEDS: PIPERACILLIN-TAZOBACTAM 3.375 GM in SODIUM CHLORIDE 0.9% 100 ML IVPB SCH ×3 (03:52→17:56)
[2020-09-05] MEDS: FUROSEMIDE 10 MG/ML 4 ML VIAL IV SCH ×2 (04:01→16:32)
[2020-09-05 06:23] LABS: Glucose,Whole Blood 133 mg/dL (75-99)
[2020-09-05 08:23] LABS: African American GFR (CKD) >90 (>60 ml/min/1.73 sqM); Anion Gap 7 mmol/L; Blood Urea Nitrogen 39 mg/dL (9-20); Calcium 8.3 mg/dL (8.4-10.2); Carbon Dioxide 34 mmol/L (22-30); Chloride 106 mmol/L (98-107); Glucose 122 mg/dL (74-99); Non-African American GFR(CKD) 88 (>60 ml/min/1.73 sqM); Potassium 3.5 mmol/L (3.5-5.1); Sodium 147 mmol/L (137-145)
[2020-09-05] MEDS: hydrALAZINE HCL 50 MG TAB PEG/G-TUBE SCH ×3 (08:28→16:32)
[2020-09-05] MEDS: HEPARIN SODIUM,PORCINE 5,000 UNIT/ML 1 ML VIAL SQ SCH ×2 (08:28→16:37)
[2020-09-05] MEDS: METOPROLOL TARTRATE 25 MG TAB PEG/G-TUBE SCH ×2 (08:28→16:31)
[2020-09-05] MEDS: lisinopriL 20 MG TAB PEG/G-TUBE SCH (08:29)
[2020-09-05] MEDS: CARBIDOPA-LEVODOPA 25-100 MG 1 EACH TAB PEG/G-TUBE SCH ×3 (08:29→16:32)
[2020-09-05] MEDS: FAMOTIDINE 20 MG TAB PEG/G-TUBE SCH ×2 (08:29→21:09)
[2020-09-05] MEDS: OXYBUTYNIN CHLORIDE 5 MG TAB PEG/G-TUBE SCH ×2 (08:29→16:32)
[2020-09-05] MEDS: VANCOMYCIN 1,250 MG in SODIUM CHLORIDE 0.9% 250 ML IVPB SCH ×2 (08:31→21:10)
[2020-09-05] MEDS: SANTYL 250 UNIT/GM TOPICAL SCH (08:31)
--- NOTE | 2020-09-05 08:42 | XR ---
EXAMINATION TYPE: XR chest 1V DATE OF EXAM: 09/05/2020 COMPARISON: Prior chest x-ray 09/04/2020 HISTORY: Shortness of breath TECHNIQUE: Single frontal view of the chest is obtained. FINDINGS: There is a right-sided PICC line in place as on prior. Pleural parenchymal changes are susanne lar to prior exam, heart size may be accentuated by technique. Postop changes are noted in the cervic al spine. No evident pneumothorax. Bibasilar density persists. Bilateral airspace disease suspected. IMPRESSION: Correlate for pneumonia, pulmonary edema with congestive heart failure.
[2020-09-05] MEDS: ACETAMINOPHEN TAB 325 MG TAB PEG/G-TUBE PRN ×2 (11:21→21:09)
[2020-09-05 11:59] LABS: Glucose,Whole Blood 128 mg/dL (75-99)
--- NOTE | 2020-09-05 12:46 | P.PN ---
Subjective Progress Note Date: 09/05/20 HISTORY OF PRESENT ILLNESS: Patient examined this morning . He denies chest pain or pressure. He denies shortness of breath. He remains on IV lasix. Creatinine today is 0.76. Fluid balance over the last 24 hours is negative - 1300 mL. PHYSICAL EXAM: VITAL SIGNS: Reviewed. GENERAL: Well-developed in no acute distress. NECK: Supple. No JVD or thyromegaly LUNGS: Respirations even and unlabored. Lungs diminished. HEART: Irregular rate and rhythm. S1 and S2 heard. EXTREMITIES: Normal range of motion. No clubbing or cyanosis. Peripheral pulses intact. No lower extremity edema ASSESSMENT: Acute on chronic hypoxic respiratory failure, possible aspiration pneumonia Right pleural effusion, status post thoracentesis Acute exacerbation of diastolic congestive heart failure, EF 55-60% Chronic atrial fibrillation, not on long-term anticoagulation secondary to recent GI bleed History of severe achalasia History of PEG tube insertion COPD Peripheral vascular disease with right femoral occlusion History of pulmonary embolism Unstageable decubitus ulcer History of Parkinson's disease PLAN: Pulmonary following. Continue antibiotics Continue IV lasix Monitor kidney function Daily weights Accurate I&O Further recommendations pending patient course Nurse practitioner note has been reviewed by physician. Signing provider agrees with the documented findings, assessment, and plan of care. Objective - Vital Signs Vital signs: Vital Signs Temp 97.6 F 09/05/20 08:52 Pulse 69 09/05/20 08:52 Resp 18 09/05/20 08:52 BP 156/71 09/05/20 08:52 Pulse Ox 100 09/05/20 08:52 Intake & Output 09/04/20 09/05/20 09/05/20 18:59 06:59 18:59 Intake Total 230 210 80 Output Total 725 1055 900 Balance -495 -845 -820 Weight 72.5 kg Intake: Tube Feeding 200 210 80 Other 30 Output: Gastric Drainage 130 Urine 725 925 900 Other: Voiding Method Indwelling Catheter Indwelling Catheter Indwelling Catheter - Labs CBC & Chem 7: 09/04/20 05:16 09/05/20 07:00 Labs: Abnormal Lab Results - Last 24 Hours (Table) 09/05/20 09/05/20 09/05/20 Range/Units 00:04 06:22 07:00 Sodium 147 H (137-145) mmol/L Carbon Dioxide 34 H (22-30) mmol/L BUN 39 H (9-20) mg/dL Glucose 122 H (74-99) mg/dL POC Glucose (mg/dL) 129 H 133 H (75-99) mg/dL Calcium 8.3 L (8.4-10.2) mg/dL 09/05/20 Range/Units 11:58 Sodium (137-145) mmol/L Carbon Dioxide (22-30) mmol/L BUN (9-20) mg/dL Glucose (74-99) mg/dL POC Glucose (mg/dL) 128 H (75-99) mg/dL Calcium (8.4-10.2) mg/dL Microbiology - Last 24 Hours (Table) 09/03/20 15:10 Gram Stain - Preliminary Pleural Fluid Body Fluid Culture - Preliminary
--- NOTE | 2020-09-05 15:05 | P.PN ---
Subjective Progress Note Date: 09/05/20 HISTORY OF PRESENT ILLNESS 75-year-old male with past medical history of chronic A. fib, hypertension, congestive heart failure, previous history of pulmonary embolism, lower esopha geal sphincter dysfunction. Patient was hospitalized in [facility] from 07/19/2020 till 08/24/2020 for extensive achalasia and esophageal sphincter dysfunction not been able to swallow 8 or drink anything for long time no finding consistent with Ye esophagus at the time or esophageal cancer was found. Patient was care for by Dr. Eastman cardiothoracic surgeon before patient presented to [facility] was having persistent symptom with nausea vomiting not been able to keep any fluid or food down for long time he in the become malnourished. He is known to have history of achalasia with lower sphincter dysfunction post robotic myomectomy in the past at the time patient was admitted to [facility] patient was in acute respiratory failure secondary to aspiration pneumonia and possible emphysema was seen by multiple subspecialists in the hospital was in for over a month ended up having pleural effusion, acute GI bleed, acute blood loss anemia, coagulopathy his achalasia was much worse patient ended up having PEG tube feeding which attached to J-tube which was replaced in the hospital patient was fed to with since. 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 Addition patient found to have large sacral and decubitus unstageable ulcer been managed by wound care at the time. Patient found to be in acute respiratory distress with significant shortness of breath dyspnea and severe hypoxia despite having high flow O2 patient continued to decline ended up coming to the emergency department at [facility] where was seen and evaluated his chest x-ray showed significant fluid overload more like congestive heart failure. Patient was diagnosed with aspiration pneumonia, respiratory failure from COPD and CHF was admitted to the hospital start him on IV antibiotic IV diuretics patient be seen cardiology and pulmonary as well. 09/04: Patient is more awake alert today able to answer some question he was seen pulmonary been treated for aspiration pneumonia with pleural effusion might require thoracentesis for possible infection and abscess in the pleural space in the meanwhile continue current management still on feeding per PEG tube still in the ICU currently. 09/05: Patient has been seen by speech therapy and tested with liquids only. Oropharyngeal swallow was judged within functional limits. Patient is on PEG tube feedings and no residuals. He has been afebrile, heart rate 69, blood pressure 156/71, pulse ox 100% on 1 L nasal cannula. Sodium is 147, potassium 3.5, chloride 106, CO2 34, BUN 39 and creatinine 0.76. Blood sugars running between 122 and 133. Repeat chest x-ray reveals correlate for pneumonia, pulmonary edema with heart failure. Patient followed by cardiology with plan to continue IV Lasix which is a 40 mg IV every 12 hours. Patient is also on Zosyn and vancomycin. Patient followed by pulmonary medicine. Echocardiogram reveals EF of 55-60%, borderline concentric left ventricular hypertrophy, trace mitral regurgitation, trace tricuspid regurgitate. REVIEW OF SYSTEMS CONSTITUTIONAL: Malnourished looks much older than his age. No fevers. EYES: No icterus sclerae, no conjunctivitis. EARS, NOSE, MOUTH, THROAT, and FACE: No sore throat, lymphadenopathy, carotid bruits or deformity. RESPIRATORY: Significant dyspnea and shortness of breath with worsening cough and wheezes. CARDIOVASCULAR: Positive PND orthopnea Pepcid patient with worsening shortness of breath and CHF. GASTROINTESTINAL: Achalasia with severe dysphagia with PEG and J feeding. GENITOURINARY: Negative for Hematuria or UTI, no kidney stones. Goodson catheter. INTEGUMENT/BREAST: Negative for any muscular injury with mild osteoarthritis. Large sacral and decubitus ulcer unstageable.. HEMATOLOGIC/LYMPHATIC: Negative for bleed or purpura. MUSCULOSKELTAL: Negative for Myalgia or arthralgia. NEURLOGICAL: No LOC, Sz or syncope, blurred vision dizziness or abnormality.. BEHAVIORAL/PSYCH: Negative. ENDOCRINE: Negative. PHYSICAL EXAMINATION General Appearance: Confuse significant shortness of breath with mild respiratory distress. Neck HEENT: Supple, no lymphadenopathy, no thyroid enlargement, no carotid bruits. Very dry mucosa. Lungs: Decreased breath sound bilaterally with fine rhonchi positive crackles positive mild expiratory wheezes as well. Chest Wall: Decrease expansion with deep inspiration no tenderness and no deformity was found on exam, no costochondral pain or discomfort. Heart: Irregular rate and rhythm, S1, S2 normal, positive S3 positive JVD with systolic murmur. Back: Symmetric, no curvature, ROM normal, no CVA tenderness. Abdomen: Soft possible sound, there is PEG tube with J port slight drainage around the tube area. Goodson catheter in place. Extremities: Extremities normal, atraumatic, no cyanosis or edema. Slight increased swelling in the right compared to the left specially the femoral area. Pulses: 2+ and symmetric. Skin: Skin color, texture, tugor normal, no rashes or lesions. Significant decub and sacrum ulcerated area unstageable very large been taking care of by wound care. Neurologic: Alert quite bit confuse , cranial nerve II-12 intact positive generalized weakness not been able to do gait exam. ASSESSMENT AND PLAN 1 acute hypoxic respiratory failure: Combination of CHF, COPD along with aspi ration pneumonia, patient been treated currently for gram negatives pneumonia along with suspected in [place] recently with pleural effusion which is better. Patient will be started on vancomycin and add Zosyn at this point will be seen pulmonary continue high flow O2 and if needed BiPAP. 2 aspiration pneumonia: Was treated for gram-negative with IV antibiotic for 2 weeks before coming to [facility] less than a week ago patient will be back on gram-negative coverage. 3 acute on chronic diastolic heart failure. Continue IV Lasix, RANJAN daily weights. Cardiology consult appreciated 4 recent history of GI bleed: Continue to watch for any significant drop in hemoglobin. 5 severe achalasia: Patient has not been able to swallow any food or fluid and has been fed via PEG feeding. Continue current management. 6 right-sided pleural effusion: Patient might require thoracentesis for more definite answer there is an infection around the pleural space. 7 COPD: Continue patient on DuoNeb and Pulmicort. 8 chronic atrial fibrillation. Patient is on medical management pulse rates under control and metoprolol 25 mg twice a day patient is not on any anticoagulation because of the recent GI bleed he had. 9 severe PAD with right femoral occlusion was seen by vascular. 10 urinary retention and incontinence: Patient is on Goodson catheter currently. 11 history of pulmonary embolism: Patient could not go back on anticoagulation yet because of the recent GI bleed. 12 unstageable decubitus ulcer: Wound care continue topical care as well especially mattress and turn patient more frequent. 13 Parkinson disease: Was started on carbidopa levodopa recently continue medication. 14 incidental abdominal aortic aneurysm: Size has been small dyspnea and follow- up as an outpatient. 15 GI prophylaxis: Continue patient on pantoprazole IV. 16 DVT prophylaxis: Patient will be on heparin 5000 units subcutaneous twice a day. CODE STATUS: Full code. Patient is still doing slightly but better clinically but he has very high morbidity and mortality. DISCHARGE PLAN Return to [facility]. Impression and plan of care have been directed as dictated by the signing physician. Nora Wylie nurse practitioner acting as scribe for signing physician. Objective - Vital Signs Vital signs: Vital Signs Temp 97.6 F 09/05/20 08:52 Pulse 69 09/05/20 08:52 Resp 18 09/05/20 08:52 BP 156/71 09/05/20 08:52 Pulse Ox 100 09/05/20 08:52 Intake & Output 09/04/20 09/05/20 09/05/20 18:59 06:59 18:59 Intake Total 230 210 Output Total 725 1055 900 Balance -833 -661 -900 Weight 72.5 kg Intake: Tube Feeding 200 210 Other 30 Output: Gastric Drainage 130 Urine 725 925 900 Other: Voiding Method Indwelling Catheter Indwelling Catheter Indwelling Catheter - Labs CBC & Chem 7: 09/04/20 05:16 09/05/20 07:00 Labs: Abnormal Lab Results - Last 24 Hours (Table) 09/05/20 09/05/20 09/05/20 Range/Units 00:04 06:22 07:00 Sodium 147 H (137-145) mmol/L Carbon Dioxide 34 H (22-30) mmol/L BUN 39 H (9-20) mg/dL Glucose 122 H (74-99) mg/dL POC Glucose (mg/dL) 129 H 133 H (75-99) mg/dL Calcium 8.3 L (8.4-10.2) mg/dL Microbiology - Last 24 Hours (Table) 09/03/20 15:10 Gram Stain - Preliminary Pleural Fluid Body Fluid Culture - Preliminary
[2020-09-05] MEDS: ASPIRIN 81 MG PEG/G-TUBE SCH (16:31)
[2020-09-05 19:07] LABS: Glucose,Whole Blood 129 mg/dL (75-99)
[2020-09-05 20:24] LABS: Glucose,Whole Blood 108 mg/dL (75-99)
[2020-09-05 21:55] LABS: Glucose,Whole Blood 112 mg/dL (75-99)
--- NOTE | 2020-09-05 22:49 | PN ---
PROGRESS NOTE PULMONARY/CRITICAL CARE PROGRESS NOTE: DATE OF SERVICE: 09/05/2020 This is a 75-year-old male admitted on September 02, 2020. He has a history of acute on chronic hypoxemic respiratory failure, possible underlying aspiration pneumonia, and right-sided pleural effusion, status post thoracentesis. In addition, the patient suffers from diastolic CHF, severe achalasia, COPD, chronic atrial fibrillation, peripheral vascular occlusive disease, urinary incontinence, pulmonary embolism, decubitus ulcer and Parkinson's disease. Currently the patient is relatively stable. My partner did do a thoracentesis on the right side over the weekend. The patient had 150 mL of fluid from the right pleural space. The fluid was yellow and clear. Glucose was 69. Total protein was 2.1, but the LDH was elevated. Currently, the patient is resting comfortably. He has no major complaints. He denies any shortness of breath. Vital signs are relatively stable. Temperature 98, heart rate 55, respiratory rate 18, blood pressure 128/62, mean 84, and saturations on 1 L nasal cannula are 99%. Probably the nasal oxygen can be discontinued. He appears in no acute distress. HEENT EXAMINATION: Grossly unremarkable. Teeth are in poor repair. NECK: Supple. Full range of motion. No adenopathy or thyromegaly. Neck veins are flat. CARDIOVASCULAR: Examination reveals regular rate and rhythm. Heart rate in the mid 60s. S1, S2 normal. No S3, S4 or murmur. LUNGS: Lungs reveal a few scattered rhonchi. There are some bibasilar crackles. Breath sounds equal bilaterally. ABDOMEN: Soft. Bowel sounds are heard. EXTREMITIES: Intact. No cyanosis, clubbing or edema. SKIN: Without rash. NEUROLOGIC: Neurologic examination is brief but nonfocal. LABS/IMAGING: Reviewed. Sodium 147, potassium 3.5, chloride 106, CO2 34. Anion gap is 7. BUN and creatinine were 39 and 0.76. Labs are reflecting hypernatremia and worsening prerenal azotemia, likely from diuretics. Pleural fluid analysis reviewed. Microbiology is negative. Chest x-ray from September 05 shows cardiomegaly and bilateral infiltrates, more right- sided than left-sided, with the right-sided pleural effusion. CURRENT MEDICATIONS: Current medications are reviewed. Currently the patient is on vancomycin and Zosyn. The patient also remains on Lasix at 40 mg q.12. Would recommend cutting that back. The other medications are appropriate. ASSESSMENT: 1. Acute on chronic hypoxemic respiratory failure, likely secondary to aspiration pneumonia as well as right-sided pleural effusion. 2. Status post thoracentesis, right side, with 150 mL of fluid removed. Fluid is consistent with an exudate, given high LDH. 3. Possible diastolic congestive heart failure. 4. History of underlying chronic obstructive pulmonary disease. 5. Severe achalasia with chronic aspiration. 6. Chronic atrial fibrillation. 7. History of peripheral vascular occlusive disease with right femoral occlusion. 8. History of urinary incontinence. 9. History of pulmonary embolism. 10.Decubitus ulcer. 11.History of Parkinson's disease. PLAN: Currently, the patient is on antibiotics in the form of Zosyn and vancomycin. Clinically the patient is stable. Will continue to watch his chest x-ray. Pleural fluid cytology is pending. No additional recommendations are made. Overall prognosis is poor. Will continue to follow. MMODL / IJN: [id number] /
[2020-09-06 00:01] LABS: Glucose,Whole Blood 111 mg/dL (75-99)
[2020-09-06] MEDS: HEPARIN SODIUM,PORCINE 5,000 UNIT/ML 1 ML VIAL SQ SCH ×3 (00:03→13:45)
[2020-09-06 00:15] LABS: Magnesium 2.1 mg/dL (1.6-2.3); Potassium 3.4 mmol/L (3.5-5.1)
[2020-09-06] MEDS: FUROSEMIDE 10 MG/ML 4 ML VIAL IV SCH (04:26)
[2020-09-06] MEDS: PIPERACILLIN-TAZOBACTAM 3.375 GM in SODIUM CHLORIDE 0.9% 100 ML IVPB SCH ×3 (04:26→13:45)
[2020-09-06 06:15] LABS: Glucose,Whole Blood 122 mg/dL (75-99)
[2020-09-06] MEDS ORDERED: VANCOMYCIN TROUGH DUE 1 EACH MISC MISCELLANE ONE (08:00)
[2020-09-06] MEDS: hydrALAZINE HCL 50 MG TAB PEG/G-TUBE SCH ×3 (08:37→13:45)
[2020-09-06] MEDS: lisinopriL 20 MG TAB PEG/G-TUBE SCH (08:37)
[2020-09-06] MEDS: CARBIDOPA-LEVODOPA 25-100 MG 1 EACH TAB PEG/G-TUBE SCH ×3 (08:38→13:45)
[2020-09-06] MEDS: METOPROLOL TARTRATE 25 MG TAB PEG/G-TUBE SCH ×2 (08:38→13:45)
[2020-09-06] MEDS: OXYBUTYNIN CHLORIDE 5 MG TAB PEG/G-TUBE SCH ×2 (08:38→13:46)
[2020-09-06] MEDS: FAMOTIDINE 20 MG TAB PEG/G-TUBE SCH (08:38)
[2020-09-06] MEDS: SANTYL 250 UNIT/GM TOPICAL SCH (08:39)
--- NOTE | 2020-09-06 09:15 | P.DS ---
Providers Date of admission: 09/02/20 16:39 Expected date of discharge: 09/06/20 Attending physician: Harry Paredes Consults: 09/02/20 16:39 Consult Physician Routine Consulting Provider: Steven Pizarro Consult Reason/Comments: chf Do you want consulting provider notified?: Yes 09/03/20 08:23 Consult Physician Routine Consulting Provider: Adi De La Fuente Consult Reason/Comments: Aspiration Pneumonia Do you want consulting provider notified?: Yes Primary care physician: [facility] Course: HISTORY OF PRESENT ILLNESS 75-year-old male with past medical history of chronic A. fib, hypertension, congestive heart failure, previous history of pulmonary embolism, lower esophageal sphincter dysfunction. Patient was hospitalized in [facility] from 07/19/2020 till 08/24/2020 for extensive achalasia and esophageal sphincter dysfunction not been able to swallow 8 or drink anything for long time no finding consistent with Ye esophagus at the time or esophageal cancer was found. Patient was care for by Dr. Eastman cardiothoracic surgeon before patient presented to [facility] was having persistent symptom with nausea vomiting not been able to keep any fluid or food down for long time he in the become malnourished. He is known to have history of achalasia with lower sphincter dysfunction post robotic myomectomy in the past at the time patient was admitted to [place] patient was in acute respiratory failure secondary to aspiration pneumonia and possible emphysema was seen by multiple subspecialists in the hospital was in for over a month ended up having pleural effusion, acute GI bleed, acute blood loss anemia, coagulopathy his achalasia was much worse patient ended up having PEG tube feeding which attached to J-tube which was replaced in the hospital patient was fed to with since. 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 Addition patient found to have large sacral and decubitus unstageable ulcer been managed by wound care at the time. Patient found to be in acute respiratory distress with significant shortness of breath dyspnea and severe hypoxia despite having high flow O2 patient continued to decline ended up coming to the emergency department at [facility] where was seen and evaluated his chest x-ray showed significant fluid overload more like congestive heart failure. Patient was diagnosed with aspiration pneumonia, respiratory failure from COPD and CHF was admitted to the hospital start him on IV antibiotic IV diuretics patient be seen cardiology and pulmonary as well. 09/04: Patient is more awake alert today able to answer some question he was seen pulmonary been treated for aspiration pneumonia with pleural effusion might require thoracentesis for possible infection and abscess in the pleural space in the meanwhile continue current management still on feeding per PEG tube still in the ICU currently. 09/05: Patient has been seen by speech therapy and tested with liquids only. Oropharyngeal swallow was judged within functional limits. Patient is on PEG tube feedings and no residuals. He has been afebrile, heart rate 69, blood pressure 156/71, pulse ox 100% on 1 L nasal cannula. Sodium is 147, potassium 3.5, chloride 106, CO2 34, BUN 39 and creatinine 0.76. Blood sugars running between 122 and 133. Repeat chest x-ray reveals correlate for pneumonia, pulmonary edema with heart failure. Patient followed by cardiology with plan to continue IV Lasix which is a 40 mg IV every 12 hours. Patient is also on Zosyn and vancomycin. Patient followed by pulmonary medicine. Echocardiogram reveals EF of 55-60%, borderline concentric left ventricular hypertrophy, trace mitral regurgitation, trace tricuspid regurgitate. 09/06: She is afebrile, heart rate 71, blood pressure 146/70, pulse ox 99% on 1 L nasal cannula. Pleural fluid culture and pathology remains pending. Patient is on his recommended tube feedings. He is having liquid stool secondary to tube feedings. He has had no events overnight. IV Lasix will be transitioned to oral. Patient will be discharged back to [facility] today in stable condition. Rapid Covid 19 tests ordered. ASSESSMENT AND PLAN 1 acute hypoxic respiratory failure: Combination of CHF, COPD along with aspiration pneumonia 2 aspiration pneumonia 3 acute on chronic diastolic heart failure 4 recent history of GI bleed 5 severe achalasia with PEG feeding 6 right-sided pleural effusion 7 COPD 8 chronic atrial fibrillation 9 severe PAD with right femoral occlusion 10 urinary retention and incontinence with chronic Goodson catheter 11 history of pulmonary embolism 12 unstageable decubitus ulcer 13 Parkinson disease 14 incidental abdominal aortic aneurysm DISCHARGE PLAN Return to [facility]. Impression and plan of care have been directed as dictated by the signing physician. Nora Wylie nurse practitioner acting as scribe for signing physician. Patient Condition at Discharge: Stable Plan - Discharge Summary Discharge Rx Participant: No New Discharge Prescriptions: New Furosemide [Lasix] 40 mg PO DAILY #30 tablet Continue lisinopriL 40 mg PEG/G-TUBE DAILY@0800 Magnesium Hydroxide [Milk of Magnesia Concentrate] 7,200 mg PEG/G-TUBE Q48H PRN PRN Reason: Constipation Ipratropium-Albuterol Nebulize [Duoneb 0.5 mg-3 mg/3 ml Soln] 3 ml INHALATION RT-QID PRN PRN Reason: Shortness Of Breath Or Wheezing bisacodyL [Bisacodyl] 10 mg RECTAL DAILY PRN PRN Reason: Constipation Na Phos,M-B/Na Phos,Di-Ba [Fleet Adult] 133 ml RECTAL DAILY PRN PRN Reason: Constipation Saliva Stimulant Agents Comb.3 [Biotene Moisturizing Mouth] 2 spray MUCOUS MEM DAILY PRN PRN Reason: Dry Mouth Saliva Stimulant Agents Comb.3 [Biotene Moisturizing Mouth] 2 spray MUCOUS MEM TID@0800,1400,2100 Acetaminophen Oral Susp [Tylenol] 650 mg PEG/G-TUBE Q4H PRN PRN Reason: Pain hydrALAZINE HCL [Apresoline] 100 mg PEG/G-TUBE TID@0800,1200,1700 Carbidopa/Levodopa [Parcopa 25-100 mg Odt] 1 tab PEG/G-TUBE TID@0800,1200,1700 Oxybutynin Chloride [Ditropan] 5 mg PEG/G-TUBE BID@0800,1700 Metoprolol Tartrate [Lopressor] 25 mg PEG/G-TUBE BID@0800,1700 Famotidine [Pepcid] 20 mg PEG/G-TUBE BID@0800,2100 Collagenase [Santyl] 1 applic TOPICAL DAILY Aspirin 81 mg PEG/G-TUBE DAILY@1700 Vits A and D/White Pet/Lanolin [A and D Ointment] 1 applic TOPICAL BID Amoxic-Pot Clav 250-62.5MG/5Ml [Augmentin 250-62.5 mg/5 ml Susp.] 12 ml PEJ/J-TUBE BID@0800,1700 10 Days #1 bottle Discharge Medication List lisinopriL 40 mg PEG/G-TUBE DAILY@0800 07/17/15 [History] Acetaminophen Oral Susp [Tylenol] 650 mg PEG/G-TUBE Q4H PRN 09/02/20 [History] Aspirin 81 mg PEG/G-TUBE DAILY@17009/02/20 [History] Carbidopa/Levodopa [Parcopa 25-100 mg Odt] 1 tab PEG/G-TUBE TID@0800,1200,1700 09/02/20 [History] Collagenase [Santyl] 1 applic TOPICAL DAILY 09/02/20 [History] Famotidine [Pepcid] 20 mg PEG/G-TUBE BID@0800,209909/02/20 [History] Ipratropium-Albuterol Nebulize [Duoneb 0.5 mg-3 mg/3 ml Soln] 3 ml INHALATION RT-QID PRN 09/02/20 [History] Magnesium Hydroxide [Milk of Magnesia Concentrate] 7,200 mg PEG/G-TUBE Q48H PRN 09/02/20 [History] Metoprolol Tartrate [Lopressor] 25 mg PEG/G-TUBE BID@0800,1700 09/02/20 [History] Na Phos,M-B/Na Phos,Di-Ba [Fleet Adult] 133 ml RECTAL DAILY PRN 09/02/20 [History] Oxybutynin Chloride [Ditropan] 5 mg PEG/G-TUBE BID@0800,1700 09/02/20 [History] Saliva Stimulant Agents Comb.3 [Biotene Moisturizing Mouth] 2 spray MUCOUS MEM DAILY PRN 09/02/20 [History] Saliva Stimulant Agents Comb.3 [Biotene Moisturizing Mouth] 2 spray MUCOUS MEM TID@0800,1400,209909/02/20 [History] Vits A and D/White Pet/Lanolin [A and D Ointment] 1 applic TOPICAL BID 09/02/20 [History] bisacodyL [Bisacodyl] 10 mg RECTAL DAILY PRN 09/02/20 [History] hydrALAZINE HCL [Apresoline] 100 mg PEG/G-TUBE TID@0800,1200,1700 09/02/20 [History] Amoxic-Pot Clav 250-62.5MG/5Ml [Augmentin 250-62.5 mg/5 ml Susp.] 12 ml PEJ/J- TUBE BID@0800,1700 10 Days #1 bottle 09/06/20 [Rx] Furosemide [Lasix] 40 mg PO DAILY #30 tablet 09/06/20 [Rx] Follow up Appointment(s)/Referral(s): [facility] [Provider Group] - 2 Weeks Harry Paredes MD [Primary Care Provider] - 1-2 days Discharge Disposition: TRANSFER TO SNF/ECF
[2020-09-06] MEDS: VANCOMYCIN 1,250 MG in SODIUM CHLORIDE 0.9% 250 ML IVPB SCH (10:15)
[2020-09-06 11:36] VITALS: BP 123/58; PULSE 57; RESP 18; TEMP 97.6
[2020-09-06] MEDS: ACETAMINOPHEN TAB 325 MG TAB PEG/G-TUBE PRN (11:52)
[2020-09-06 11:59] LABS: Glucose,Whole Blood 126 mg/dL (75-99)
--- NOTE | 2020-09-06 12:13 | P.PN ---
Subjective Progress Note Date: 09/06/20 HISTORY OF PRESENT ILLNESS: Patient examined this morning . He denies chest pain or pressure. He denies shortness of breath. He remains on IV lasix. Fluid balance over the last 24 hours is negative -1940 mL. Coronavirus testing was negative PHYSICAL EXAM: VITAL SIGNS: Reviewed. GENERAL: Well-developed in no acute distress. NECK: Supple. No JVD or thyromegaly LUNGS: Respirations even and unlabored. Lungs diminished. HEART: Irregular rate and rhythm. S1 and S2 heard. EXTREMITIES: Normal range of motion. No clubbing or cyanosis. Peripheral pulses intact. No lower extremity edema ASSESSMENT: Acute on chronic hypoxic respiratory failure, possible aspiration pneumonia Right pleural effusion, status post thoracentesis Acute exacerbation of diastolic congestive heart failure, EF 55-60% Chronic atrial fibrillation, not on long-term anticoagulation secondary to recent GI bleed History of severe achalasia History of PEG tube insertion COPD Peripheral vascular disease with right femoral occlusion History of pulmonary embolism Unstageable decubitus ulcer History of Parkinson's disease PLAN: Pulmonary following. Continue antibiotics Transition patient to oral lasix today Monitor kidney function Daily weights Accurate I&O Agreeable to discharge to [facility] Nurse practitioner note has been reviewed by physician. Signing provider agrees with the documented findings, assessment, and plan of care. Objective - Vital Signs Vital signs: Vital Signs Temp 97.6 F 09/06/20 11:32 Pulse 57 L 09/06/20 11:32 Resp 18 09/06/20 11:32 BP 123/58 09/06/20 11:32 Pulse Ox 95 09/06/20 11:32 Intake & Output 09/05/20 09/06/20 09/06/20 18:59 06:59 18:59 Intake Total 640 740 320 Output Total 1500 1820 Balance -860 -1080 320 Weight 73.1 kg Intake: Intake, IV Titration 100 Amount Piperacillin-Tazobactam 3 100 .375 gm In Sodium Chloride 0.9% 100 ml @ 25 mls/hr IVPB Q8H ERIC Rx#: [id number] Tube Feeding 640 640 320 Output: Urine 1500 1820 Other: Voiding Method Indwelling Catheter Indwelling Catheter Indwelling Catheter # Voids 1 # Bowel Movements 1 - Labs CBC & Chem 7: 09/04/20 05:16 09/05/20 23:35 Labs: Abnormal Lab Results - Last 24 Hours (Table) 09/05/20 09/05/20 09/05/20 Range/Units 19:06 20:23 21:53 Potassium (3.5-5.1) mmol/L POC Glucose (mg/dL) 129 H 108 H 112 H (75-99) mg/dL 09/05/20 09/06/20 09/06/20 Range/Units 23:35 00:00 06:14 Potassium 3.4 L (3.5-5.1) mmol/L POC Glucose (mg/dL) 111 H 122 H (75-99) mg/dL 09/06/20 Range/Units 11:58 Potassium (3.5-5.1) mmol/L POC Glucose (mg/dL) 126 H (75-99) mg/dL Microbiology - Last 24 Hours (Table) 09/03/20 15:10 Gram Stain - Preliminary Pleural Fluid Body Fluid Culture - Preliminary
[2020-09-06] MEDS: ASPIRIN 81 MG PEG/G-TUBE SCH (13:45)
--- NOTE | 2020-09-06 15:43 | PN ---
PROGRESS NOTE PULMONARY/CRITICAL CARE PROGRESS NOTE: DATE OF SERVICE: 09/06/2020 This is a 75-year-old gentleman with a history of acute on chronic hypoxemic respiratory failure secondary to aspiration pneumonia as well as right-sided pleural effusion. The patient did undergo a right-sided thoracentesis, 150 mL of fluid was removed. The fluid was consistent with an exudate given his high LDH. In addition, the patient has a history of diastolic CHF, COPD, severe achalasia, chronic atrial fibrillation, peripheral vascular occlusive disease, urinary incontinence, pulmonary embolism, decubitus ulcer, and Parkinson's disease. Overall, the patient is doing reasonably well. He is feeling well. He has been weaned down to room air. Current vital signs include a room air saturation 95%. Blood pressure 123/58 mean 79, respiratory rate 18, heart rate 67, and temperature 97.6. Appears in no acute distress. Certainly no respiratory distress. HEENT: Examination is grossly unremarkable. No supplemental oxygen. NECK: Supple, full range of motion. No adenopathy or thyromegaly. Neck veins are flat. CARDIOVASCULAR: Examination reveals regular rhythm and rate. Heart rate 57 beats per minute. S1, S2 normal. No S3, S4, or murmur. LUNGS: Reveal mostly clear breath sounds. No wheezes, rhonchi, or crackles. Breath sounds equal bilaterally. ABDOMEN: Soft. Bowel sounds are heard. EXTREMITIES: Intact. No cyanosis, clubbing, or edema. SKIN: Without rash. NEUROLOGIC: Examination is nonfocal. LABS: Reviewed. Nothing new from today. Microbiology is negative. No recent chest x-ray. Medications are reviewed. ASSESSMENT: 1. Acute on chronic hypoxemic respiratory failure secondary to aspiration pneumonia as well as right-sided pleural effusion. 2. Status post right-sided thoracentesis, with 150 mL of fluid removed. Fluid is consistent with an exudate, given the high LDH. 3. Possible diastolic congestive heart failure. 4. History of underlying COPD. 5. Severe achalasia with chronic aspiration. 6. Chronic atrial fibrillation. 7. History of peripheral vascular occlusive disease with right femoral occlusion. 8. History of urinary incontinence. 9. History of pulmonary embolism. 10.Decubitus ulcer. 11.History of Parkinson's disease. PLAN: Currently, the patient is doing reasonably well. Will continue to follow. He has been weaned down to room air. He denies any respiratory issues including shortness of breath, chest tightness, wheezing, cough or phlegm production. The patient is currently on Zosyn and vancomycin. Will continue to follow. Prognosis is guarded. MMODL / IJN: [id number] /
[2020-09-06] MEDS ORDERED: VANCOMYCIN 1,250 MG in SODIUM CHLORIDE 0.9% 250 ML IVPB SCH (16:00)
[2020-09-07] MEDS ORDERED: FUROSEMIDE 40 MG TAB PO SCH (09:00)
--- NOTE | 2020-09-07 11:43 | CDI ---
Documentation Clarification Form Date: 09/07/2020 11:29:00 AM From: Elaine Morgan Phone: If you have a question about this query, please contact Radha Mercado Icu Manager at [phone] between 8am and 5pm. Admit Date: 09/04/2020 06:55:00 PM Patient Name: Shelia Hines Visit Number: [id number] Discharge Date: 09/06/2020 07:36:00 PM ATTENTION: The Clinical Documentation Specialists (CDI) and [facility] Coding Staff appreciate your assistance in clarifying documentation. Please respond to the clarification below the line at the bottom and electronically sign. The CDI & [facility] Coding staff will review the response and follow-up if needed. Please note: Queries are made part of the Legal Health Record. If you have any questions, please contact the author of this message via ITS. Dr. Maximo Giron Patient is Covid positive. Patient's CXR may reflect developing pneumonia with Perihilar and basilar vague infiltrate. Please clarify if patient had pneumonia or was it ruled out. History/Risk Factors: Covid positive Clinical Indicators: fatigue Vital signs: 98.1 F, 55 bpm, 18, 137/65, 99 RA WBC/Left shift: 6.2 X-ray: May reflect developing pneumonia Treatment:Zithromax In order to capture the severity of condition, please clarify if patient had pneumonia due to Covid or was this ruled out. Pneumonia due to Covid Pneumonia Pneumonia ruled out Other, please specify Unable to determine MTDD
== END 2020-09-06 15:45 | DRG 177 ==
LOC: EC 15:10 → 3SCARD 16:39 → 2SICU 09-03 12:56 → 3SCARD 09-04 17:51
PROVIDERS: ADMIT Internal Medicine Geriatric Medicine; ATTEND Internal Medicine Geriatric Medicine
PROC: 3E0G76Z Introduction of Nutritional Substance into Upper GI, Via Natural or Artificial Opening (ICD-10-PCS; principal; 2020-09-03)
DX: J69.0 Pneumonitis due to inhalation of food and vomit (principal); J96.21 Acute and chronic respiratory failure with hypoxia; I50.33 Acute on chronic diastolic (congestive) heart failure; E87.0 Hyperosmolality and hypernatremia; I48.20 Chronic atrial fibrillation, unspecified; J90 Pleural effusion, not elsewhere classified; K22.0 Achalasia of cardia; L89.150 Pressure ulcer of sacral region, unstageable; I71.4 Abdominal aortic aneurysm, without rupture; T50.2X5A Adverse effect of carbonic-anhydrase inhibitors, benzothiadiazides and other diuretics, initial encounter; F41.9 Anxiety disorder, unspecified; G20 Parkinson's disease; H91.90 Unspecified hearing loss, unspecified ear; I11.0 Hypertensive heart disease with heart failure; Z86.711 Personal history of pulmonary embolism; I73.9 Peripheral vascular disease, unspecified; J44.9 Chronic obstructive pulmonary disease, unspecified; Z20.828 Contact with and (suspected) exposure to other viral communicable diseases; R32 Unspecified urinary incontinence; Z79.82 Long term (current) use of aspirin; Z79.899 Other long term (current) drug therapy; Z80.6 Family history of leukemia; Z80.7 Family history of other malignant neoplasms of lymphoid, hematopoietic and related tissues; Z85.828 Personal history of other malignant neoplasm of skin; Z86.718 Personal history of other venous thrombosis and embolism; Z93.1 Gastrostomy status; Z98.1 Arthrodesis status; Z98.42 Cataract extraction status, left eye; Z98.41 Cataract extraction status, right eye; Z96.1 Presence of intraocular lens; R33.9 Retention of urine, unspecified; Z96.643 Presence of artificial hip joint, bilateral; Z96.653 Presence of artificial knee joint, bilateral; Z90.49 Acquired absence of other specified parts of digestive tract; Z88.1 Allergy status to other antibiotic agents
CPT/HCPCS: 36415; 71045; 76604; 80048; 80053; 80202; 82550; 82945; 83605; 83615; 83735; 83880; 84132; 84157; 84484; 85025; 85610; 85730; 87070; 87205; 87635; 88305; 89050; 93005; 93306; 94640; 94644; 94660; 96365; 96366; 96375; 99285

== ENCOUNTER 2020-09-15 13:56 | Inpatient (IN) | payer MEDICARE ==
--- NOTE | 2020-09-15 14:45 | ED ---
General Adult HPI - General Chief complaint: Skin/Abscess/Foreign Body Stated complaint: Room 28 MINA tube came out Time Seen by Provider: 09/15/20 14:02 Source: EMS Mode of arrival: EMS Limitations: no limitations - History of Present Illness Initial comments: 75-year-old male with history of achalasia, Parkinson's, A. fib presenting to the emergency department with a chief complaint of JG tube coming out. Patient sent here from [facility]. I spoke with the nurse from [facility] who states there only requesting replacement of the tube which apparently had come out by accident or it could've been partially by the patient himself. The is also present in the room to answer any additional questions. She states the patient had the tube initially placed in June by Dr. Pardo from [facility]. The patient has nonfunctional lower esophageal sphincter. He is clinically dry baseline. - Related Data Home Medications Medication Instructions Recorded Confirmed lisinopriL 40 mg PEG/G-TUBE DAILY@0800 05/13/15 09/15/20 Acetaminophen Oral Susp [Tylenol] 650 mg PEG/G-TUBE Q4H PRN 09/02/20 09/15/20 Aspirin 81 mg PEG/G-TUBE DAILY@1700 09/02/20 09/15/20 Carbidopa/Levodopa [Parcopa 25-100 1 tab PEG/G-TUBE TID@0800,1200,1700 09/02/20 09/15/20 mg Odt] Famotidine [Pepcid] 20 mg PEG/G-TUBE BID@0800,2100 09/02/20 09/15/20 Ipratropium-Albuterol Nebulize 3 ml INHALATION RT-QID PRN 09/02/20 09/15/20 [Duoneb 0.5 mg-3 mg/3 ml Soln] Magnesium Hydroxide [Milk of 7,200 mg PEG/G-TUBE Q48H PRN 09/02/20 09/15/20 Magnesia Concentrate] Metoprolol Tartrate [Lopressor] 25 mg PEG/G-TUBE BID@0800,1700 09/02/20 09/15/20 Na Phos,M-B/Na Phos,Di-Ba [Fleet 133 ml RECTAL DAILY PRN 09/02/20 09/15/20 Adult] Oxybutynin Chloride [Ditropan] 5 mg PEG/G-TUBE BID@0800,1700 09/02/20 09/15/20 Saliva Stimulant Agents Comb.3 2 spray MUCOUS MEM DAILY PRN 09/02/20 09/15/20 [Biotene Moisturizing Mouth] Saliva Stimulant Agents Comb.3 2 spray MUCOUS MEM 09/02/20 09/15/20 [Biotene Moisturizing Mouth] TID@0800,1400,2100 bisacodyL [Bisacodyl] 10 mg RECTAL DAILY PRN 09/02/20 09/15/20 hydrALAZINE HCL [Apresoline] 100 mg PEG/G-TUBE 09/02/20 09/15/20 TID@0800,1200,1700 Amoxic-Pot Clav 250-62.5MG/5Ml 12 ml PEG/G-TUBE BID@0800,1700 09/15/20 09/15/20 [Augmentin 250-62.5 mg/5 ml Susp.] Furosemide [Lasix] 40 mg PEG/G-TUBE DAILY@0800 09/15/20 09/15/20 Lidocaine 5% Oint [Xylocaine 5% 1 applic TOPICAL DAILY PRN 09/15/20 09/15/20 Oint] Lidocaine 5% Oint [Xylocaine 5% 1 applic TOPICAL WE 09/15/20 09/15/20 Oint] Liquical 30 ml PO TID@0800,1500,2100 09/15/20 09/15/20 Allergies Allergy/AdvReac Type Severity Reaction Status Date / Time ciprofloxacin [From Cipro] Allergy Rash/Hives Verified 09/15/20 14:23 ciprofloxacin HCl Allergy Rash/Hives Verified 09/15/20 14:23 [From Cipro] Review of Systems ROS Statement: Those systems with pertinent positive or pertinent negative responses have been documented in the HPI. ROS Other: All systems not noted in ROS Statement are negative. Past Medical History Past Medical History: Atrial Fibrillation, Cancer, Eye Disorder, GERD/Reflux, Hearing Disorder / Deafness, Hypertension, Osteoarthritis (OA), Pulmonary Embolus (PE), Skin Disorder Additional Past Medical History / Comment(s): Hx Colon RESECTION FOR MASS. Skin Cancer. HIATAL HERNIA. HAS LENS IMPLANTS AHMET EYES. History of Any Multi-Drug Resistant Organisms: None Reported Past Surgical History: Appendectomy, Back Surgery, Bowel Resection, Hernia Repair, Joint Replacement Additional Past Surgical History / Comment(s): REVISION TOTAL LT HIP. AHMET KNEES & HIPS REPLACEMENTS. Fusion of lower back, neck fusion. BOWEL RES: PRECANCEROUS MASS. AHMET. cataracts. Ahmet leg LASER VEIN SURG. Removal of skin cancer from scalp and chest. surgery for fx nose. rt shoulder rotator cuff. EGD X2, LAST 08/2016.10-11-16 BROCK FUNDOPLICATION Past Anesthesia/Blood Transfusion Reactions: No Reported Reaction Past Psychological History: No Psychological Hx Reported Smoking Status: Never smoker Past Alcohol Use History: Occasional Past Drug Use History: None Reported - Past Family History Sister(s) Family Medical History: Cancer Mother Family Medical History: Cancer Additional Family Medical History / Comment(s): BLADDER Father Family Medical History: Cancer Additional Family Medical History / Comment(s): LEUKEMIA Brother(s) Family Medical History: Cancer Additional Family Medical History / Comment(s): MULTIPLE MYELOMA General Exam Limitations: no limitations General appearance: alert, in no apparent distress Head exam: Present: atraumatic, normocephalic, normal inspection Eye exam: Present: normal appearance, PERRL, EOMI Pupils: Present: normal accommodation ENT exam: Present: normal exam, normal oropharynx, mucous membranes dry, TM's normal bilaterally, normal external ear exam Neck exam: Present: normal inspection, full ROM. Absent: tenderness Respiratory exam: Present: normal lung sounds bilaterally. Absent: respiratory distress, wheezes, rales Cardiovascular Exam: Present: regular rate, normal rhythm, normal heart sounds. Absent: systolic murmur, diastolic murmur GI/Abdominal exam: Present: soft, other (Gauze covering the ostomy). Absent: distended, tenderness, guarding, rebound Extremities exam: Present: normal inspection, full ROM, normal capillary refill. Absent: tenderness, pedal edema, joint swelling Back exam: Present: normal inspection, full ROM. Absent: tenderness, CVA tenderness (R), CVA tenderness (L) Neurological exam: Present: alert Psychiatric exam: Present: normal affect, normal mood Skin exam: Present: warm, dry, intact, normal color Course Vital Signs 09/15/20 09/15/20 13:58 18:57 Temperature 98 F 101 F H Pulse Rate 73 76 Respiratory 18 18 Rate Blood Pressure 150/70 162/93 O2 Sat by Pulse 96 96 Oximetry Medical Decision Making - Medical Decision Making 75-year-old male with history of achalasia, A. fib, Parkinson's. Presenting to the emergency department with chief complaint of JG tube coming out. The old tube was brought to the emergency department. We were not able to find a similar tube. We also contacted Dr. Rodrigez who advised a regular PEG tube can be inserted in order to prevent closure of the ostomy and the patient came admitted for observation. I placed and the G-tube. KUB obtained reveals placement is in correct position. Patient was given Tylenol through G-tube because he developed a fever 101 prior to going on the floor. Patient was also found to have foul- smelling diarrhea. Stool sample was obtained. She will examine the patient once he is noted. Case discussed with . Admitting physician is Dr. Rodrigez - Lab Data Result diagrams: 09/15/20 17:13 09/15/20 17:13 Lab Results 09/15/20 09/15/20 09/15/20 Range/Units 17:13 17:13 17:13 WBC 15.1 H (3.8-10.6) k/uL RBC 2.88 L (4.30-5.90) m/uL Hgb 7.9 L (13.0-17.5) gm/dL Hct 25.8 L (39.0-53.0) % MCV 89.7 D (80.0-100.0) fL MCH 27.4 (25.0-35.0) pg MCHC 30.6 L (31.0-37.0) g/dL RDW 16.0 H (11.5-15.5) % Plt Count 645 H (150-450) k/uL MPV 8.0 Neutrophils % 62 % Lymphocytes % 30 % Monocytes % 4 % Eosinophils % 1 % Basophils % 1 % Neutrophils # 9.4 H (1.3-7.7) k/uL Lymphocytes # 4.6 (1.0-4.8) k/uL Monocytes # 0.6 (0-1.0) k/uL Eosinophils # 0.1 (0-0.7) k/uL Basophils # 0.1 (0-0.2) k/uL Hypochromasia Marked Anisocytosis Slight PT 10.6 (9.0-12.0) sec INR 1.0 (<1.2) APTT 23.5 (22.0-30.0) sec Sodium 146 H (137-145) mmol/L Potassium 4.4 (3.5-5.1) mmol/L Chloride 115 H (98-107) mmol/L Carbon Dioxide 26 (22-30) mmol/L Anion Gap 5 mmol/L BUN 47 H (9-20) mg/dL Creatinine 0.80 (0.66-1.25) mg/dL Est GFR (CKD-EPI)AfAm >90 (>60 ml/min/1.73 sqM) Est GFR (CKD-EPI)NonAf 87 (>60 ml/min/1.73 sqM) Glucose 99 (74-99) mg/dL Calcium 8.8 (8.4-10.2) mg/dL Total Bilirubin 0.8 (0.2-1.3) mg/dL AST 42 (17-59) U/L ALT 24 (4-49) U/L Alkaline Phosphatase 166 H (38-126) U/L Total Protein 6.4 (6.3-8.2) g/dL Albumin 2.5 L (3.5-5.0) g/dL Disposition Clinical Impression: Gastrostomy tube dysfunction, Anemia Disposition: ADMITTED IP TO THIS HOSP Condition: Fair Is patient prescribed a controlled substance at d/c from ED?: No Time of Disposition: 18:22
[2020-09-15] MEDS ORDERED: SODIUM CHLORIDE 0.9% 500 ML 500 ML IV STA (16:42)
[2020-09-15 17:34] LABS: ALT 24 U/L (4-49); AST 42 U/L (17-59); African American GFR (CKD) >90 (>60 ml/min/1.73 sqM); Albumin 2.5 g/dL (3.5-5.0); Alkaline Phosphatase 166 U/L (38-126); Anion Gap 5 mmol/L; Blood Urea Nitrogen 47 mg/dL (9-20); Calcium 8.8 mg/dL (8.4-10.2); Carbon Dioxide 26 mmol/L (22-30); Chloride 115 mmol/L (98-107); Glucose 99 mg/dL (74-99); Non-African American GFR(CKD) 87 (>60 ml/min/1.73 sqM); Potassium 4.4 mmol/L (3.5-5.1); Sodium 146 mmol/L (137-145); Total Bilirubin 0.8 mg/dL (0.2-1.3); Total Protein 6.4 g/dL (6.3-8.2)
[2020-09-15 17:42] LABS: Partial Thromboplastin Time 23.5 sec (22.0-30.0); Prothrombin Time 10.6 sec (9.0-12.0)
[2020-09-15 17:53] LABS: Anisocytosis Slight; Basophils # (A) 0.1 k/uL (0-0.2); Basophils % (A) 1 %; Eosinophils # (A) 0.1 k/uL (0-0.7); Eosinophils % (A) 1 %; HCT 25.8 % (39.0-53.0); HGB 7.9 gm/dL (13.0-17.5); Hypochromasia Marked; Lymphocytes # (A) 4.6 k/uL (1.0-4.8); Lymphocytes % (A) 30 %; MCH 27.4 pg (25.0-35.0); MCHC 30.6 g/dL (31.0-37.0); Monocytes # (A) 0.6 k/uL (0-1.0); Monocytes % (A) 4 %; Neutrophils # (A) 9.4 k/uL (1.3-7.7); Neutrophils % (A) 62 %; Platelet Count 645 k/uL (150-450); RBC 2.88 m/uL (4.30-5.90); WBC 15.1 k/uL (3.8-10.6)
[2020-09-15 17:57] LABS: MCV 89.7 fL (80.0-100.0)
[2020-09-15] MEDS ORDERED: ONDANSETRON 4 MG/2 ML VIAL IVP PRN (18:11)
[2020-09-15] MEDS ORDERED: NALOXONE 0.4 MG/ML 1 ML VIAL IV PRN (18:11)
[2020-09-15] MEDS ORDERED: LORazepam 2 MG/ML INJ IV PRN (18:11)
[2020-09-15] MEDS ORDERED: ACETAMINOPHEN TAB 325 MG TAB PO PRN (18:11)
[2020-09-15] MEDS ORDERED: MORPHINE SULFATE 4 MG/ML SYRINGE IV PRN (18:11)
[2020-09-15] MEDS ORDERED: LIDOCAINE 5% OINTMENT 50 GM JAR TOPICAL PRN (19:10)
[2020-09-15] MEDS ORDERED: MAGNESIUM HYDROXIDE 2,400 MG/10 ML CUP PEG/G-TUBE PRN (19:10)
[2020-09-15] MEDS ORDERED: bisacodyL 10 MG SUPP RECTAL PRN (19:10)
[2020-09-15] MEDS ORDERED: DRY MOUTH SPRAY 44.3 SPRAY/44.3 ML SPRAY MUCOUS MEM PRN (19:10)
--- NOTE | 2020-09-15 19:28 | XR ---
EXAMINATION TYPE: XR KUB DATE OF EXAM: 09/15/2020 COMPARISON: NONE HISTORY: Check tube placement TECHNIQUE: Single view The contrast was Isovue 80 mL. FINDINGS: There is contrast apparently injected in the gastrostomy tube and the contrast flows freely into the duodenum. There is no sign of extravasation. There is fusion surgery in the lumbar spine. IMPRESSION: Gastrostomy tube appears in good position at the distal stomach.
[2020-09-15] MEDS ORDERED: ACETAMINOPHEN ORAL SUSP 160 MG/5 ML CUP PO ONE (19:43)
[2020-09-15] MEDS: SODIUM CHLORIDE 0.9% 1,000 ML IV SCH (20:17)
[2020-09-15] MEDS: FAMOTIDINE 20 MG TAB PEG/G-TUBE SCH (20:36)
[2020-09-15] MEDS ORDERED: NON FORMULARY DRUG (Liquical 30 ML) PO SCH (21:00)
[2020-09-15] MEDS: DRY MOUTH SPRAY 44.3 SPRAY/44.3 ML SPRAY MUCOUS MEM SCH (21:58)
--- NOTE | 2020-09-15 23:05 | P.HPIM ---
History of Present Illness H&P Date: 09/15/20 Chief Complaint: NG tube came out require placement, history of achalasia, s evere dehydratio 75-year-old male with multiple medical problem who is known to have history of chronic A. fib, hypertension, congestive heart failure, history of pulmonary embolism, lower esophageal sphincter dysfunction was hospitalized at [facility] from 912 till 08/24/2020 with severe achalasia and esophageal sphincter dysfunction has been able to swallow or drink any water or fluid. His entire workup came back negative for cancer of the esophagus patient was seen and care by Dr. Eastman was cardiothoracic surgeon at [facility] patient had respiratory failure the time along with aspiration pneumonia and severe infection with pulmonary embolism was on mechanical ventilation and extubated. Patient made it to [facility] rehab and a few days later was rushed to the ospital on 09/03/2020 was in till after 1110 for severe dyspnea and shortness of breath with respiratory failure consistent with aspiration pneumonia and congestive heart failure with COPD exacerbation. Patient was treated seen by multiple subspecialists at the time discharged back to [facility] to stay on G-tube feeding the whole time long discussion with the family about possibility of complication including recurrent aspiration pneumonia on recurrent complication related to his tube feeding. Patient apparently has been doing well until today when his J-tube came out potentially or nonintentionally but found in patient's hand in his room with patient was sent to the emergency department and seen and evaluated was post to be seen gastroenterology patient found to be severe dehydration and mild respiratory failure with low-grade temperature and worsening symptoms Dr. Avery lozano was contacted patient need to be hospitalized his J-tube might need to be replace surgically with one of our general surgeon. Review of Systems CONSTITUTIONAL: Well-developed no acute respiratory distress. EYES: No icterus sclerae, no conjunctivitis. EARS, NOSE, MOUTH, THROAT, and FACE: No sore throat, lymphadenopathy, carotid bruits or deformity. Severe dry mucosa RESPIRATORY: Positive dyspnea and shortness of breath and cough. CARDIOVASCULAR: Positive PND orthopnea and palpitation with no angina lately. GASTROINTEAbd pain, Nausea or vomiting, positive severe diarrhea with suspicion for C. diff, no active GI bleed with history of anemia. Severe achalasia with lower esophageal sphincter dysfunction. GENITOURINARY: Significant urine output decrease without burning. INTEGUMENT/BREAST: Negative for any muscular injury with mild osteoarthritis.. Severe decub ulcer in the sacral area on the right buttocks area as well. HEMATOLOGIC/LYMPHATIC: Negative for bleed or purpura. Positive anemia MUSCULOSKELTAL: Negative for Myalgia or arthralgia. NEURLOGICAL: No LOC, Sz or syncope, blurred vision dizziness or abnormality.. BEHAVIORAL/PSYCH: Negative. ENDOCRINE: Negative. Past Medical History Past Medical History: Atrial Fibrillation, Cancer, Eye Disorder, GERD/Reflux, Hearing Disorder / Deafness, Hypertension, Osteoarthritis (OA), Pulmonary Embolus (PE), Skin Disorder Additional Past Medical History / Comment(s): Hx Colon RESECTION FOR MASS. Skin Cancer. HIATAL HERNIA. HAS LENS IMPLANTS SARAI EYES. History of Any Multi-Drug Resistant Organisms: None Reported Past Surgical History: Appendectomy, Back Surgery, Bowel Resection, Hernia Repair, Joint Replacement Additional Past Surgical History / Comment(s): REVISION TOTAL LT HIP. SARAI KNEES & HIPS REPLACEMENTS. Fusion of lower back, neck fusion. BOWEL RES: PRECANCEROU S MASS. SARAI. cataracts. Sarai leg LASER VEIN SURG. Removal of skin cancer from scalp and chest. surgery for fx nose. rt shoulder rotator cuff. EGD X2, LAST 08/2016.10-11-16 BROCK FUNDOPLICATION Past Anesthesia/Blood Transfusion Reactions: No Reported Reaction Past Psychological History: No Psychological Hx Reported Smoking Status: Never smoker Past Alcohol Use History: Occasional Past Drug Use History: None Reported - Past Family History Sister(s) Family Medical History: Cancer Mother Family Medical History: Cancer Additional Family Medical History / Comment(s): BLADDER Father Family Medical History: Cancer Additional Family Medical History / Comment(s): LEUKEMIA Brother(s) Family Medical History: Cancer Additional Family Medical History / Comment(s): MULTIPLE MYELOMA Medications and Allergies Home Medications Medication Instructions Recorded Confirmed Type lisinopriL 40 mg PEG/G-TUBE DAILY@0800 05/13/15 09/15/20 History Acetaminophen Oral Susp [Tylenol] 650 mg PEG/G-TUBE Q4H PRN 09/02/20 09/15/20 History Aspirin 81 mg PEG/G-TUBE DAILY@1700 09/02/20 09/15/20 History Carbidopa/Levodopa [Parcopa 25-100 1 tab PEG/G-TUBE TID@0800,1200,1700 09/02/20 09/15/20 History mg Odt] Famotidine [Pepcid] 20 mg PEG/G-TUBE BID@0800,2100 09/02/20 09/15/20 History Ipratropium-Albuterol Nebulize 3 ml INHALATION RT-QID PRN 09/02/20 09/15/20 History [Duoneb 0.5 mg-3 mg/3 ml Soln] Magnesium Hydroxide [Milk of 7,200 mg PEG/G-TUBE Q48H PRN 09/02/20 09/15/20 History Magnesia Concentrate] Metoprolol Tartrate [Lopressor] 25 mg PEG/G-TUBE BID@0800,1700 09/02/20 09/15/20 History Na Phos,M-B/Na Phos,Di-Ba [Fleet 133 ml RECTAL DAILY PRN 09/02/20 09/15/20 History Adult] Oxybutynin Chloride [Ditropan] 5 mg PEG/G-TUBE BID@0800,1700 09/02/20 09/15/20 History Saliva Stimulant Agents Comb.3 2 spray MUCOUS MEM DAILY PRN 09/02/20 09/15/20 History [Biotene Moisturizing Mouth] Saliva Stimulant Agents Comb.3 2 spray MUCOUS MEM 09/02/20 09/15/20 History [Biotene Moisturizing Mouth] TID@0800,1400,2100 bisacodyL [Bisacodyl] 10 mg RECTAL DAILY PRN 09/02/20 09/15/20 History hydrALAZINE HCL [Apresoline] 100 mg PEG/G-TUBE 09/02/20 09/15/20 History TID@0800,1200,1700 Amoxic-Pot Clav 250-62.5MG/5Ml 12 ml PEG/G-TUBE BID@0800,1700 09/15/20 09/15/20 History [Augmentin 250-62.5 mg/5 ml Susp.] Furosemide [Lasix] 40 mg PEG/G-TUBE DAILY@0800 09/15/20 09/15/20 History Lidocaine 5% Oint [Xylocaine 5% 1 applic TOPICAL DAILY PRN 09/15/20 09/15/20 History Oint] Lidocaine 5% Oint [Xylocaine 5% 1 applic TOPICAL WE 09/15/20 09/15/20 History Oint] Liquical 30 ml PO TID@0800,1500,2100 09/15/20 09/15/20 History Allergies Allergy/AdvReac Type Severity Reaction Status Date / Time ciprofloxacin [From Cipro] Allergy Rash/Hives Verified 09/15/20 14:23 ciprofloxacin HCl Allergy Rash/Hives Verified 09/15/20 14:23 [From Cipro] Physical Exam Vitals: Vital Signs Temp Pulse Resp BP Pulse Ox 09/15/20 18:57 101 F H 76 18 162/93 96 09/15/20 13:58 98 F 73 18 150/70 96 Intake and Output 09/15/20 09/15/20 09/15/20 06:59 14:59 22:59 Other: Weight 86.183 kg General Appearance: Alert, cooperative, no distress, appears much older than his age Neck HEENT: Supple, no lymphadenopathy, no thyroid enlargement, no carotid bruits. Significant dry mucosa Lungs: Decrease breath sound bilaterally with fine rhonchi specially in the right base with crackles and expiratory wheezes.. Chest Wall: Decrease expansion with deep inspiration no tenderness and no deformity was found on exam, no costochondral pain or discomfort. Heart: Regular rate and rhythm, S1, S2 normal, no murmur, rub or gallop. Back: Symmetric, no curvature, ROM normal, no CVA tenderness. Significant decub ulcer in the sacral area in the right proximal. Abdomen: Soft, non-tender, there is a puncture site from his [place] NG tube in the middle with slight drainage around it. Extremities: Extremities trace edema decreased pulse bilaterally with mild arthritis of both knees right proximal had stage II one time 2 inch size burn to the deep tissue Pulses: 2+ and symmetric. Skin: Skin color, texture, tugor normal, no rashes or lesions. Neurologic: Alert oriented x3 cranial nerves II through XII intact, no motor deficit, no abnormal balance or gait. Results CBC & Chem 7: 09/15/20 17:13 09/15/20 17:13 Labs: Abnormal Lab Results - Last 24 Hours (Table) 09/15/20 09/15/20 Range/Units 17:13 17:13 WBC 15.1 H (3.8-10.6) k/uL RBC 2.88 L (4.30-5.90) m/uL Hgb 7.9 L (13.0-17.5) gm/dL Hct 25.8 L (39.0-53.0) % MCHC 30.6 L (31.0-37.0) g/dL RDW 16.0 H (11.5-15.5) % Plt Count 645 H (150-450) k/uL Neutrophils # 9.4 H (1.3-7.7) k/uL Sodium 146 H (137-145) mmol/L Chloride 115 H (98-107) mmol/L BUN 47 H (9-20) mg/dL Alkaline Phosphatase 166 H (38-126) U/L Albumin 2.5 L (3.5-5.0) g/dL Assessment and Plan Assessment: 1 malfunction of J-tube: Patient was hospitalized be seen GI and general surgery patient most likely will require to have his G-tube done tomorrow to continue his current attrition. 2 severe diarrhea most likely C. diff: Patient has been on Augmentin for aspiration pneumonia long enough despite continue to be on probiotic patient had severe symptoms today awaiting for culture before start management and treatment. 3 recurrent UTI is much better on antibiotics. 4 recurrent aspiration pneumonia: Continue to eat well his head is up continue to supplement most of his diet through his PEG or J-tube. 5 severe achalasia: Post myomectomy and lower sphincter procedure still not doing well symptoms otherwise. 6 recent history of congestive heart failure and fluid overload better so far continue current diuretics. 7 A. fib with RVR: Remain on metoprolol and is not a candidate for an anticoagulation at this point. 8 severe PAD: Will be seen vascular as an outpatient. 9 urinary retention with mild incontinence had a [place] catheter symptoms are slightly better for now. 10 history of pulmonary embolism could not go back on anticoagulation because of recurrent GI bleed. 11 unstageable decubitus ulcer on the sacral right buttocks area continue topical care as recommended by the with the clinic. 12 Parkinson disease: Still on Sinemet. 13 acute blood loss anemia might require blood transfusion. 14 hyperglycemia: Continue Accu-Chek sliding scales coverage. 15 COPD: Continue patient on DuoNeb nebulizer. 16 severe debility: Patient has been on PTOT which is very limited this point no improvement on his condition. 17 GI prophylaxis: Continue patient on Pepcid. 18 DVT prophylaxis: Knee-high DOTTIE hose no anticoagulation subcutaneous or orally supposed to be done. CODE STATUS: Full code. Admit patient to the inpatient service for more than 2 nights stay.
[2020-09-16] MEDS: IPRATROPIUM-ALBUTEROL 3 ML NEB INHALATION PRN ×3 (07:13→17:04)
[2020-09-16] MEDS ORDERED: FUROSEMIDE 40 MG TAB PEG/G-TUBE SCH (08:00)
[2020-09-16] MEDS: DRY MOUTH SPRAY 44.3 SPRAY/44.3 ML SPRAY MUCOUS MEM SCH ×3 (08:24→21:09)
[2020-09-16] MEDS: SODIUM CHLORIDE 0.9% 1,000 ML IV SCH ×2 (08:25→21:09)
[2020-09-16] MEDS: CARBIDOPA-LEVODOPA 25-100 MG 1 EACH TAB PEG/G-TUBE SCH ×3 (09:55→16:39)
--- NOTE | 2020-09-16 09:55 | P.CONS ---
History of Present Illness - Reason for Consult Consult date: 09/16/20 wound care - History of Present Illness this is a 75-year-old gentleman who resides at [facility] with a unstageable pressure ulcer to the right sacrum. Patient is unsure of how long the ulceration has been there. It is unsure of what the dressing changes have been to the site. Patient also has a stage II pressure ulcer distally to the right sacrum also. patient is a poor historian most information was obtained from the chart and the nurse. Patient has medical history significant for atrial fibrillation, colon cancer with resection, GERD, hearing disorder, hypertension, history of pulmonary embolism Review of Systems ROS unobtainable: due to mental status Past Medical History Past Medical History: Atrial Fibrillation, Cancer, Eye Disorder, GERD/Reflux, Hearing Disorder / Deafness, Hypertension, Osteoarthritis (OA), Pulmonary Embo letha (PE), Skin Disorder Additional Past Medical History / Comment(s): Hx Colon RESECTION FOR MASS. Skin Cancer. HIATAL HERNIA. HAS LENS IMPLANTS AHMET EYES. History of Any Multi-Drug Resistant Organisms: None Reported Past Surgical History: Appendectomy, Back Surgery, Bowel Resection, Hernia Repair, Joint Replacement Additional Past Surgical History / Comment(s): REVISION TOTAL LT HIP. AHMET KNEES & HIPS REPLACEMENTS. Fusion of lower back, neck fusion. BOWEL RES: PRECANCEROUS MASS. AHMET. cataracts. Ahmet leg LASER VEIN SURG. Removal of skin cancer from scalp and chest. surgery for fx nose. rt shoulder rotator cuff. EGD X2, LAST 08/2016.10-11-16 BROCK FUNDOPLICATION Past Anesthesia/Blood Transfusion Reactions: No Reported Reaction Past Psychological History: No Psychological Hx Reported Smoking Status: Never smoker Past Alcohol Use History: Occasional Past Drug Use History: None Reported - Past Family History Sister(s) Family Medical History: Cancer Mother Family Medical History: Cancer Additional Family Medical History / Comment(s): BLADDER Father Family Medical History: Cancer Additional Family Medical History / Comment(s): LEUKEMIA Brother(s) Family Medical History: Cancer Additional Family Medical History / Comment(s): MULTIPLE MYELOMA Medications and Allergies Home Medications Medication Instructions Recorded Confirmed Type lisinopriL 40 mg PEG/G-TUBE DAILY@0800 05/13/15 09/15/20 History Acetaminophen Oral Susp [Tylenol] 650 mg PEG/G-TUBE Q4H PRN 09/02/20 09/15/20 History Aspirin 81 mg PEG/G-TUBE DAILY@1700 09/02/20 09/15/20 History Carbidopa/Levodopa [Parcopa 25-100 1 tab PEG/G-TUBE TID@0800,1200,1700 09/02/20 09/15/20 History mg Odt] Famotidine [Pepcid] 20 mg PEG/G-TUBE BID@0800,2100 09/02/20 09/15/20 History Ipratropium-Albuterol Nebulize 3 ml INHALATION RT-QID PRN 09/02/20 09/15/20 History [Duoneb 0.5 mg-3 mg/3 ml Soln] Magnesium Hydroxide [Milk of 7,200 mg PEG/G-TUBE Q48H PRN 09/02/20 09/15/20 History Magnesia Concentrate] Metoprolol Tartrate [Lopressor] 25 mg PEG/G-TUBE BID@0800,1700 09/02/20 09/15/20 History Na Phos,M-B/Na Phos,Di-Ba [Fleet 133 ml RECTAL DAILY PRN 09/02/20 09/15/20 History Adult] Oxybutynin Chloride [Ditropan] 5 mg PEG/G-TUBE BID@0800,1700 09/02/20 09/15/20 History Saliva Stimulant Agents Comb.3 2 spray MUCOUS MEM DAILY PRN 09/02/20 09/15/20 History [Biotene Moisturizing Mouth] Saliva Stimulant Agents Comb.3 2 spray MUCOUS MEM 09/02/20 09/15/20 History [Biotene Moisturizing Mouth] TID@0800,1400,2100 bisacodyL [Bisacodyl] 10 mg RECTAL DAILY PRN 09/02/20 09/15/20 History hydrALAZINE HCL [Apresoline] 100 mg PEG/G-TUBE 09/02/20 09/15/20 History TID@0800,1200,1700 Amoxic-Pot Clav 250-62.5MG/5Ml 12 ml PEG/G-TUBE BID@0800,1700 09/15/20 09/15/20 History [Augmentin 250-62.5 mg/5 ml Susp.] Furosemide [Lasix] 40 mg PEG/G-TUBE DAILY@0800 09/15/20 09/15/20 History Lidocaine 5% Oint [Xylocaine 5% 1 applic TOPICAL DAILY PRN 09/15/20 09/15/20 History Oint] Lidocaine 5% Oint [Xylocaine 5% 1 applic TOPICAL WE 09/15/20 09/15/20 History Oint] Liquical 30 ml PO TID@0800,1500,2100 09/15/20 09/15/20 History Allergies Allergy/AdvReac Type Severity Reaction Status Date / Time ciprofloxacin [From Cipro] Allergy Rash/Hives Verified 09/15/20 14:23 ciprofloxacin HCl Allergy Rash/Hives Verified 09/15/20 14:23 [From Cipro] Physical Exam Vitals: Vital Signs Temp Pulse Pulse Resp BP BP Pulse Ox 09/16/20 08:00 25 H 09/16/20 07:26 84 09/16/20 07:13 80 09/16/20 04:24 97.9 F 65 20 148/69 94 L 09/15/20 23:00 24 09/15/20 22:02 97.7 F 09/15/20 21:00 98.0 F 93 20 141/63 95 09/15/20 18:57 101 F H 76 18 162/93 96 09/15/20 13:58 98 F 73 18 150/70 96 Intake and Output 09/15/20 09/16/20 09/16/20 22:59 06:59 14:59 Other: Voiding Method Indwelling Catheter Indwelling Catheter # Bowel Movements 0 Weight 86.183 kg Physical exam: General Appearance: Alert, cooperative, no distress, appears stated age. Skin: full thickness ulceration to the right gluteus significant amounts of [place] noted an eschar. No granulation seenunable to identify depth. Wound edges are not attached wound bed. Periwound shows maceration excoriation. A inferior ulceration is noted that is stage II pressure ulcer with wet layer exposure. all other Skin color, texture, tugor normal, no rashes or lesions. Neurologic: Alert oriented x3 Results CBC & Chem 7: 09/15/20 17:13 09/15/20 17:13 Labs: Abnormal Lab Results - Last 24 Hours (Table) 09/15/20 09/15/20 Range/Units 17:13 17:13 WBC 15.1 H (3.8-10.6) k/uL RBC 2.88 L (4.30-5.90) m/uL Hgb 7.9 L (13.0-17.5) gm/dL Hct 25.8 L (39.0-53.0) % MCHC 30.6 L (31.0-37.0) g/dL RDW 16.0 H (11.5-15.5) % Plt Count 645 H (150-450) k/uL Neutrophils # 9.4 H (1.3-7.7) k/uL Sodium 146 H (137-145) mmol/L Chloride 115 H (98-107) mmol/L BUN 47 H (9-20) mg/dL Alkaline Phosphatase 166 H (38-126) U/L Albumin 2.5 L (3.5-5.0) g/dL Assessment and Plan (1) Pressure ulcer of sacral region, unstageable Current Visit: Yes Status: Acute Code(s): L89.150 - PRESSURE ULCER OF SACRAL REGION, UNSTAGEABLE SNOMED Code(s): 222856510 (2) Pressure ulcer of sacral region, stage 2 Current Visit: Yes Status: Acute Code(s): L89.152 - PRESSURE ULCER OF SACRAL REGION, STAGE 2 SNOMED Code(s): 274392885 Plan: apply Santyl, family was gauze, foam border to the site. Changes daily. Patient may benefit from a surgical debridement however due to his comorbidities surgery may not be an option. At this time we'll use a enzymatic debridement agent. Patient to continue with wound care upon his return to the extended care facility. Turn every 2 hours. Please assess the service of the rhythms for the appropriate services. Consult nutrition. Thank you for the consultation any questions with contact the wound care center DNP note has been reviewed and discussed with Dr. Moreira and the impression and plan of care has been directed as dictated.
[2020-09-16] MEDS: hydrALAZINE HCL 50 MG TAB PEG/G-TUBE SCH ×2 (09:56→11:53)
[2020-09-16] MEDS: FAMOTIDINE 20 MG TAB PEG/G-TUBE SCH (09:56)
[2020-09-16] MEDS: METOPROLOL TARTRATE 25 MG TAB PEG/G-TUBE SCH ×2 (09:56→16:38)
[2020-09-16] MEDS: lisinopriL 20 MG TAB PEG/G-TUBE SCH (09:56)
--- NOTE | 2020-09-16 09:58 | XR ---
EXAMINATION TYPE: XR chest 1V portable DATE OF EXAM: 09/16/2020 COMPARISON: Prior chest x-ray 09/05/2020 HISTORY: Fever, aspiration TECHNIQUE: Single frontal view of the chest is obtained. FINDINGS: Right-sided PICC line is again noted. Postop changes in present in the cervical spine. Aor ta is dense. Heart is enlarged. Bibasilar effusions are present, this blunting of the chest phrenic a ngles. Bilateral airspace disease is present. There is no evident pneumothorax. Postop changes are no [place] to the lumbar spine. Bone mineralization is reduced. There are dense vascular calcifications pres ent. IMPRESSION: Correlate for congestive heart failure, pneumonia, follow-up recommended. There are like ly bilateral pleural effusions.
[2020-09-16] MEDS: OXYBUTYNIN CHLORIDE 5 MG TAB PEG/G-TUBE SCH ×2 (10:01→16:39)
--- NOTE | 2020-09-16 10:20 | XR ---
KUB HISTORY: PEG tube placement Frontal KUB submitted on 2 images. Correlation to prior KUB 09/15/2020. Injection of 25 cc of Isovue 370 was performed and the images obtained. There is a tube present over the midline. Tube shows contrast material within the lumen, balloon is t hought to be related. Probable dressing adjacent to the balloon shows a dense appearance. No definite contrast seen within the distal stomach or proximal small bowel as on prior exam. Contrast within th e colon likely due to previous exam. Multiple coils and surgical clips are present. Bibasilar increas ed attenuation is present, the heart is enlarged. Postop changes are noted to the hips and lumbar spi ne. [place]: Gastrostomy tube thought not to be intraluminal.
--- NOTE | 2020-09-16 11:40 | P.GSCN ---
History of Present Illness Consult date: 09/16/20 History of present illness: CHIEF COMPLAINT: Pulled out J-tube HISTORY OF PRESENT ILLNESS: This is a 75-year-old male with a known history of lower esophageal sphincter dysfunction and severe achalasia status post J-tube placement at [facility] during his hospitalization on 07/09/2020. Patient also has a history of bowel resection for precancerous mass and a Brock fundoplication. He has history of atrial fibrillation not on anticoagulation due to previous GI bleeds. Also history of CHF and pulmonary embolism. Patient had been at [facility] for rehabilitation after hospitalization on 09/03/2020 for aspiration pneumonia, congestive heart failure and COPD exacerbation. He had been doing well until his J-tube came out. Patient had a gastrostomy tube plac ed in the emergency room. Patient does complain of some abdominal discomfort. Denies any nausea or vomiting. Did have a temp of 101. He has been having diarrhea stool for C. diff was negative. Patient seen and examined with Dr. Bianchi PAST MEDICAL HISTORY: See list. PAST SURGICAL HISTORY: See list. MEDICATIONS: See list. ALLERGIES: See list. SOCIAL HISTORY: No illicit drug use. REVIEW OF SYSTEMS: CONSTITUTIONAL: Denies fever or chills. HEENT: Denies blurred vision, vision changes, or eye pain. Denies hemoptysis CARDIOVASCULAR: Denies chest pain or pressure. RESPIRATORY: No shortness of breath. GASTROINTESTINAL: See HPI for pertinent findings HEMATOLOGIC: Denies bleeding disorders. GENITOURINARY: Denies any blood in urine or increased urinary frequency. SKIN: Denies pruitis. Denies rash. PHYSICAL EXAM: VITAL SIGNS: Reviewed GENERAL: Well-developed in no acute distress. HEENT: No sclera icterus. Extraocular movements grossly intact. Moist buccal mucosa. Head is atraumatic, normocephalic. No nasal drainage. ABDOMEN: Soft. Nondistended. PEG tube site clean dry and intact NEUROLOGIC: Alert and oriented. Cranial nerves II through XII grossly intact. LABORATORY DATA: WBC 15.1 hemoglobin 7.9 IMAGING: KUB x-ray shows gastrostomy tube thought not to be intraluminal ASSESSMENT: 1. Malfunctioning J-tube 2. History of esophageal sphincter dysfunction and severe a achalasia status post J-tube placement and [facility] during his hospital physician on 07/09/2020 PLAN: -keep patient nothing by mouth -Further recommendations forthcoming per surgeon Thank you for this consultation Physician Potato Bucker note has been reviewed by physician. Signing provider agrees with the documented findings, assessment, and plan of care. Past Medical History Past Medical History: Atrial Fibrillation, Cancer, Eye Disorder, GERD/Reflux, Hearing Disorder / Deafness, Hypertension, Osteoarthritis (OA), Pulmonary Embolu s (PE), Skin Disorder Additional Past Medical History / Comment(s): Hx Colon RESECTION FOR MASS. Skin Cancer. HIATAL HERNIA. HAS LENS IMPLANTS AHMET EYES. History of Any Multi-Drug Resistant Organisms: None Reported Past Surgical History: Appendectomy, Back Surgery, Bowel Resection, Hernia Repair, Joint Replacement Additional Past Surgical History / Comment(s): REVISION TOTAL LT HIP. AHMET KNEES & HIPS REPLACEMENTS. Fusion of lower back, neck fusion. BOWEL RES: PRECANCEROUS MASS. AHMET. cataracts. Ahmet leg LASER VEIN SURG. Removal of skin cancer from scalp and chest. surgery for fx nose. rt shoulder rotator cuff. EGD X2, LAST 08/2016.10-11-16 BROCK FUNDOPLICATION Past Anesthesia/Blood Transfusion Reactions: No Reported Reaction Past Psychological History: No Psychological Hx Reported Smoking Status: Never smoker Past Alcohol Use History: Occasional Past Drug Use History: None Reported - Past Family History Sister(s) Family Medical History: Cancer Mother Family Medical History: Cancer Additional Family Medical History / Comment(s): BLADDER Father Family Medical History: Cancer Additional Family Medical History / Comment(s): LEUKEMIA Brother(s) Family Medical History: Cancer Additional Family Medical History / Comment(s): MULTIPLE MYELOMA Medications and Allergies Home Medications Medication Instructions Recorded Confirmed Type lisinopriL 40 mg PEG/G-TUBE DAILY@0800 05/13/15 09/15/20 History Acetaminophen Oral Susp [Tylenol] 650 mg PEG/G-TUBE Q4H PRN 09/02/20 09/15/20 History Aspirin 81 mg PEG/G-TUBE DAILY@1700 09/02/20 09/15/20 History Carbidopa/Levodopa [Parcopa 25-100 1 tab PEG/G-TUBE TID@0800,1200,1700 09/02/20 09/15/20 History mg Odt] Famotidine [Pepcid] 20 mg PEG/G-TUBE BID@0800,2100 09/02/20 09/15/20 History Ipratropium-Albuterol Nebulize 3 ml INHALATION RT-QID PRN 09/02/20 09/15/20 History [Duoneb 0.5 mg-3 mg/3 ml Soln] Magnesium Hydroxide [Milk of 7,200 mg PEG/G-TUBE Q48H PRN 09/02/20 09/15/20 History Magnesia Concentrate] Metoprolol Tartrate [Lopressor] 25 mg PEG/G-TUBE BID@0800,1700 09/02/20 09/15/20 History Na Phos,M-B/Na Phos,Di-Ba [Fleet 133 ml RECTAL DAILY PRN 09/02/20 09/15/20 History Adult] Oxybutynin Chloride [Ditropan] 5 mg PEG/G-TUBE BID@0800,1700 09/02/20 09/15/20 History Saliva Stimulant Agents Comb.3 2 spray MUCOUS MEM DAILY PRN 09/02/20 09/15/20 History [Biotene Moisturizing Mouth] Saliva Stimulant Agents Comb.3 2 spray MUCOUS MEM 09/02/20 09/15/20 History [Biotene Moisturizing Mouth] TID@0800,1400,2100 bisacodyL [Bisacodyl] 10 mg RECTAL DAILY PRN 09/02/20 09/15/20 History hydrALAZINE HCL [Apresoline] 100 mg PEG/G-TUBE 09/02/20 09/15/20 History TID@0800,1200,1700 Amoxic-Pot Clav 250-62.5MG/5Ml 12 ml PEG/G-TUBE BID@0800,1700 09/15/20 09/15/20 History [Augmentin 250-62.5 mg/5 ml Susp.] Furosemide [Lasix] 40 mg PEG/G-TUBE DAILY@0800 09/15/20 09/15/20 History Lidocaine 5% Oint [Xylocaine 5% 1 applic TOPICAL DAILY PRN 09/15/20 09/15/20 History Oint] Lidocaine 5% Oint [Xylocaine 5% 1 applic TOPICAL WE 09/15/20 09/15/20 History Oint] Liquical 30 ml PO TID@0800,1500,2100 09/15/20 09/15/20 History Allergies Allergy/AdvReac Type Severity Reaction Status Date / Time ciprofloxacin [From Cipro] Allergy Rash/Hives Verified 09/15/20 14:23 ciprofloxacin HCl Allergy Rash/Hives Verified 09/15/20 14:23 [From Cipro] Surgical - Exam Vital Signs Temp Pulse Resp BP Pulse Ox 98 F 73 18 150/70 96 09/15/20 13:58 09/15/20 13:58 09/15/20 13:58 09/15/20 13:58 09/15/20 13:58 Results - Labs 09/15/20 17:13 09/15/20 17:13 Abnormal Lab Results - Last 24 Hours (Table) 09/15/20 09/15/20 Range/Units 17:13 17:13 WBC 15.1 H (3.8-10.6) k/uL RBC 2.88 L (4.30-5.90) m/uL Hgb 7.9 L (13.0-17.5) gm/dL Hct 25.8 L (39.0-53.0) % MCHC 30.6 L (31.0-37.0) g/dL RDW 16.0 H (11.5-15.5) % Plt Count 645 H (150-450) k/uL Neutrophils # 9.4 H (1.3-7.7) k/uL Sodium 146 H (137-145) mmol/L Chloride 115 H (98-107) mmol/L BUN 47 H (9-20) mg/dL Alkaline Phosphatase 166 H (38-126) U/L Albumin 2.5 L (3.5-5.0) g/dL Diabetes panel 09/15/20 Range/Units 17:13 Sodium 146 H (137-145) mmol/L Potassium 4.4 (3.5-5.1) mmol/L Chloride 115 H (98-107) mmol/L Carbon Dioxide 26 (22-30) mmol/L BUN 47 H (9-20) mg/dL Creatinine 0.80 (0.66-1.25) mg/dL Glucose 99 (74-99) mg/dL Calcium 8.8 (8.4-10.2) mg/dL AST 42 (17-59) U/L ALT 24 (4-49) U/L Alkaline Phosphatase 166 H (38-126) U/L Total Protein 6.4 (6.3-8.2) g/dL Albumin 2.5 L (3.5-5.0) g/dL Calcium panel 09/15/20 Range/Units 17:13 Calcium 8.8 (8.4-10.2) mg/dL Albumin 2.5 L (3.5-5.0) g/dL Pituitary panel 09/15/20 Range/Units 17:13 Sodium 146 H (137-145) mmol/L Potassium 4.4 (3.5-5.1) mmol/L Chloride 115 H (98-107) mmol/L Carbon Dioxide 26 (22-30) mmol/L BUN 47 H (9-20) mg/dL Creatinine 0.80 (0.66-1.25) mg/dL Glucose 99 (74-99) mg/dL Calcium 8.8 (8.4-10.2) mg/dL Adrenal panel 09/15/20 Range/Units 17:13 Sodium 146 H (137-145) mmol/L Potassium 4.4 (3.5-5.1) mmol/L Chloride 115 H (98-107) mmol/L Carbon Dioxide 26 (22-30) mmol/L BUN 47 H (9-20) mg/dL Creatinine 0.80 (0.66-1.25) mg/dL Glucose 99 (74-99) mg/dL Calcium 8.8 (8.4-10.2) mg/dL Total Bilirubin 0.8 (0.2-1.3) mg/dL AST 42 (17-59) U/L ALT 24 (4-49) U/L Alkaline Phosphatase 166 H (38-126) U/L Total Protein 6.4 (6.3-8.2) g/dL Albumin 2.5 L (3.5-5.0) g/dL
[2020-09-16] MEDS: COLLAGENASE 250 UNIT/GM OINTMENT 30 GM TUBE TOPICAL SCH (11:53)
[2020-09-16] MEDS ORDERED: FUROSEMIDE 10 MG/ML 4 ML VIAL IV STA ×2 (12:13→15:37)
--- NOTE | 2020-09-16 12:32 | XR ---
KUB HISTORY: PEG tube placement Frontal KUB submitted and correlated prior exam and same dated earlier time There has been repositioning of the PEG tube. Contrast injection was performed prior to the , 50 cc Isovue-370 by the referring clinician. Contrast is pooling in the left upper quadrant. IMPRESSION: PEG tube does not appear luminal. Probable free intraperitoneal spill of the contrast mat erial.
[2020-09-16] MEDS ORDERED: SUCCINYLCHOLINE CHLORIDE 100 MG/5 ML SYR IV ONE (13:55)
[2020-09-16] MEDS ORDERED: LIDOCAINE 1% INJ 10MG/ML (20 ML MDV) ONE (13:55)
[2020-09-16] MEDS ORDERED: NEOSTIGMINE 1 MG/ML 10 ML VIAL ONE (13:55)
[2020-09-16] MEDS ORDERED: fentaNYL (PF) 50 MCG/ML 2 ML AMP ONE (13:55)
[2020-09-16] MEDS ORDERED: PHENYLEPHRINE-0.9% NACL SYG 1 MG/10 ML SYRINGE ONE (13:55)
[2020-09-16] MEDS ORDERED: ROCURONIUM 10 MG/ML (10 ML VIAL) IV ONE (13:55)
[2020-09-16] MEDS ORDERED: PROPOFOL 10 MG/ML 20 ML VIAL IV ONE (13:55)
[2020-09-16] MEDS ORDERED: GLYCOPYRROLATE 0.2 MG/ML 2 ML VIAL ONE (13:55)
[2020-09-16] MEDS ORDERED: SODIUM CHLORIDE 0.9% 1,000 ML IV ONE (14:15)
[2020-09-16] MEDS ORDERED: SODIUM CHLORIDE 0.9% 50 ML with ceFAZolin 2,000 MG IV ONE ×2 (14:15)
--- NOTE | 2020-09-16 14:32 | P.PN ---
Subjective Progress Note Date: 09/16/20 HISTORY OF PRESENT ILLNESS 75-year-old male with multiple medical problem who is known to have history of chronic A. fib, hypertension, congestive heart failure, history of pulmonary embolism, lower esophageal sphincter dysfunction was hospitalized at [facility] from 07/09 till 08/24/2020 with severe achalasia and esophageal sphincter dysfunction has been able to swallow or drink any water or fluid. His entire workup came back negative for cancer of the esophagus patient was seen and care by Dr. Eastman was cardiothoracic surgeon at [facility] patient had res piratory failure the time along with aspiration pneumonia and severe infection with pulmonary embolism was on mechanical ventilation and extubated. Patient made it to [facility] rehab and a few days later was rushed to the hospital on 09/03/2020 was in till after 1110 for severe dyspnea and shortness of breath with respiratory failure consistent with aspiration pneumonia and congestive heart failure with COPD exacerbation. Patient was treated seen by multiple subspecialists at the time discharged back to [facility] to stay on G-tube feeding the whole time long discussion with the family about possibility of complication including recurrent aspiration pneumonia on recurrent complication related to his tube feeding. Patient apparently has been doing well until today when his J-tube came out potentially or nonintentionally but found in patient's hand in his room with patient was sent to the emergency department and seen and evaluated was post to be seen gastroenterology patient found to be severe dehydration and mild respiratory failure with low-grade temperature and worsening symptoms Dr. Avery lozano was contacted patient need to be hospitalized his J-tube might need to be replace surgically with one of our general surgeon. 09/16: Patient has been afebrile since admission, heart rate 88, blood pressure 160/78, pulse ox 91% on 2 L nasal cannula. Wound care consult has been added with sacral pressure ulcer unstageable and sacral pressure ulcer stage II with recommendations for Santyl, gauze changed daily. General surgery has been consulted for replacement of J-tube and GI has been consulted for achalasia. Patient has been seen by speech therapy was suspected aspiration and recommended only nectar thick liquids for pleasure only. C. difficile toxin is negative. Patient is currently nothing by mouth for replacement of J-tube. Plan for r eturn to [facility] once this is completed. REVIEW OF SYSTEMS CONSTITUTIONAL: Well-developed no acute respiratory distress. No further documented fevers. EYES: No icterus sclerae, no conjunctivitis. EARS, NOSE, MOUTH, THROAT, and FACE: No sore throat, lymphadenopathy, carotid bruits or deformity. Severe dry mucosa RESPIRATORY: Positive dyspnea and shortness of breath and cough. CARDIOVASCULAR: Positive PND orthopnea and palpitation with no angina lately. GASTROINTEAbd pain, Nausea or vomiting, positive severe diarrhea improving, no active GI bleed with history of anemia. Severe achalasia with lower esophageal sphincter dysfunction. GENITOURINARY: Significant urine output decrease without burning. INTEGUMENT/BREAST: Negative for any muscular injury with mild osteoarthritis.. Severe decub ulcer in the sacral area on the right buttocks area as well. HEMATOLOGIC/LYMPHATIC: Negative for bleed or purpura. Positive anemia MUSCULOSKELTAL: Negative for Myalgia or arthralgia. NEURLOGICAL: No LOC, Sz or syncope, blurred vision dizziness or abnormality.. BEHAVIORAL/PSYCH: Negative. ENDOCRINE: Negative. PHYSICAL EXAMINATION General Appearance: Alert, cooperative, no distress, appears much older than his age Neck HEENT: Supple, no lymphadenopathy, no thyroid enlargement, no carotid bruits. Significant dry mucosa Lungs: Decrease breath sound bilaterally with fine rhonchi specially in the right base with crackles and expiratory wheezes.. Chest Wall: Decrease expansion with deep inspiration no tenderness and no deformity was found on exam, no costochondral pain or discomfort. Heart: Regular rate and rhythm, S1, S2 normal, no murmur, rub or gallop. Back: Symmetric, no curvature, ROM normal, no CVA tenderness. Significant decub ulcer in the sacral area in the right proximal. Abdomen: Soft, non-tender, there is a puncture site from his Gilman NG tube in the middle with slight drainage around it. Extremities: Extremities trace edema decreased pulse bilaterally with mild arthritis of both knees right proximal had stage II one time 2 inch size burn to the deep tissue Pulses: 2+ and symmetric. Skin: Skin color, texture, tugor normal, no rashes or lesions. Neurologic: Alert oriented to person and place cranial nerves II through XII intact, no motor deficit, no abnormal balance or gait. ASSESSMENT AND PLAN 1 malfunction of J-tube: Patient was hospitalized be seen GI and general surgery patient most likely will require to have his J-tube replaced with general surgery. GI to see for achalasia. 2 severe diarrhea, C. difficile toxin ruled out. Patient has been on Augmentin for aspiration pneumonia long enough despite continue to be on probiotic patient had severe symptoms today awaiting for culture before start management and treatment. 3 recurrent UTI is much better on antibiotics. 4 recurrent aspiration pneumonia: Continue to eat well his head is up continue to supplement most of his diet through his PEG or J-tube. 5 severe achalasia: Post myomectomy and lower sphincter procedure still not doing well symptoms otherwise. 6 recent history of congestive heart failure and fluid overload better so far continue current diuretics. 7 chronic atrial fibrillation: Remain on metoprolol and is not a candidate for an anticoagulation at this point. 8 severe PAD: Will be seen vascular as an outpatient. 9 urinary retention with mild incontinence had a Goodson catheter symptoms are slightly better for now. 10 history of pulmonary embolism could not go back on anticoagulation because of recurrent GI bleed. 11 unstageable decubitus sacrum and stage II on sacrum. Continue local wound care as advised by wound center. 12 Parkinson disease: Still on Sinemet. 13 acute blood loss anemia might require blood transfusion. 14 hyperglycemia: Continue Accu-Chek sliding scales coverage. 15 COPD: Continue patient on DuoNeb nebulizer. 16 severe debility: Patient has been on PTOT which is very limited this point no improvement on his condition. 17 GI prophylaxis: Continue patient on Pepcid. 18 DVT prophylaxis: Knee-high DOTTIE hose no anticoagulation subcutaneous or orally supposed to be done. CODE STATUS: Full code DISCHARGE PLAN Return to [facility]. Impression and plan of care have been directed as dictated by the signing physician. Nora Wylie nurse practitioner acting as scribe for signing physician. Objective - Vital Signs Vital signs: Vital Signs Temp 97.9 F 09/16/20 04:24 Pulse 84 09/16/20 07:26 Resp 20 09/16/20 04:24 BP 148/69 09/16/20 04:24 Pulse Ox 94 L 09/16/20 04:24 Intake & Output 09/15/20 09/16/20 09/16/20 18:59 06:59 18:59 Weight 86.183 kg 86.183 kg Other: Voiding Method Indwelling Catheter # Bowel Movements 0 - Labs CBC & Chem 7: 09/15/20 17:13 09/15/20 17:13 Labs: Abnormal Lab Results - Last 24 Hours (Table) 09/15/20 09/15/20 Range/Units 17:13 17:13 WBC 15.1 H (3.8-10.6) k/uL RBC 2.88 L (4.30-5.90) m/uL Hgb 7.9 L (13.0-17.5) gm/dL Hct 25.8 L (39.0-53.0) % MCHC 30.6 L (31.0-37.0) g/dL RDW 16.0 H (11.5-15.5) % Plt Count 645 H (150-450) k/uL Neutrophils # 9.4 H (1.3-7.7) k/uL Sodium 146 H (137-145) mmol/L Chloride 115 H (98-107) mmol/L BUN 47 H (9-20) mg/dL Alkaline Phosphatase 166 H (38-126) U/L Albumin 2.5 L (3.5-5.0) g/dL
[2020-09-16] MEDS ORDERED: HYDROmorphone 1 MG/ML 1 ML SYRINGE IVP PRN (14:37)
--- NOTE | 2020-09-16 14:37 | P.OP ---
Date of Procedure: 09/16/20 Preoperative Diagnosis: Perforated viscus Postoperative Diagnosis: Gastric perforation related to PEG tube malposition Procedure(s) Performed: Exploratory laparotomy Gastrorrhaphy Placement of open gastrostomy tube Anesthesia: KERRIE Surgeon: Drew Bianchi Estimated Blood Loss (ml): 5 Pathology: none sent Condition: stable Disposition: PACU Description of Procedure: The patient's placed on the operative table supine position. He received general anesthesia. His abdomen was prepped and draped in sterile fashion. The skin was incised midline. The stomach was visualized. Patient's a 2. Be tracking through the anterior wall stomach and exiting through the greater curva ture. This point. PEG tube was withdrawn. The stomach was taken down from the anterior abdominal wall by lysing adhesions and then the stomach was examined. The stomach laceration was repaired using 3-0 silk suture. The new gastrostomy tube was then placed through the previous gastrostomy tract and into the stomach and then secured with 3-0 silk suture. The balloon was inflated with 10 mL of saline. Stomach was then pexed to the abdominal wall using 3-0 GI silk suture. The fascia was closed with looped #1 PDS suture. Skin was closed joseph. Patient top procedure well.
--- NOTE | 2020-09-16 14:39 | P.DS ---
Providers Date of admission: 09/15/20 18:40 Expected date of discharge: 09/16/20 Attending physician: Harry Paredes Consults: 09/16/20 07:55 Consult Physician Routine Consulting Provider: Drew Bianchi Consult Reason/Comments: J tube Do you want consulting provider notified?: Yes 09/16/20 08:08 Consult Physician Routine Consulting Provider: Madeleine Rodrigez Consult Reason/Comments: achalasia Do you want consulting provider notified?: Yes Primary care physician: [facility] Course: HISTORY OF PRESENT ILLNESS 75-year-old male with multiple medical problem who is known to have history of chronic A. fib, hypertension, congestive heart failure, history of pulmonary embolism, lower esophageal sphincter dysfunction was hospitalized at [facility] from 07/09 till 08/24/2020 with severe achalasia and esophageal sphincter dysfunction has been able to swallow or drink any water or fluid. His entire workup came back negative for cancer of the esophagus patient was seen and care by Dr. Eastman was cardiothoracic surgeon at [facility] patient had respiratory failure the time along with aspiration pneumonia and severe infection with pulmonary embolism was on mechanical ventilation and extubated. Patient made it to [facility] rehab and a few days later was rushed to the hospital on 09/03/2020 was in till after 1110 for severe dyspnea and shortness of breath with respiratory failure consistent with aspiration pneumonia and congestive heart failure with COPD exacerbation. Patient was treated seen by multiple subspecialists at the time discharged back to [facility] to stay on G-tube feeding the whole time long discussion with the family about possibility of complication including recurrent aspiration pneumonia on recurrent complication related to his tube feeding. Patient apparently has been doing well until today when his J-tube came out potentially or nonintentionally but found in patient's hand in his room with patient was sent to the emergency department and seen and evaluated was post to be seen gastroenterology patient found to be severe dehydration and mild respiratory failure with low-grade temperature and worsening symptoms Dr. Varela pulmonary was contacted patient need to be hospitalized his J-tube might need to be replace surgically with one of our general surgeon. 09/16: Patient has been afebrile since admission, heart rate 88, blood pressure 160/78, pulse ox 91% on 2 L nasal cannula. Wound care consult has been added with sacral pressure ulcer unstageable and sacral pressure ulcer stage II with recommendations for Santyl, gauze changed daily. General surgery has been consulted for replacement of J-tube and GI has been consulted for achalasia. Patient has been seen by speech therapy was suspected aspiration and recommended only nectar thick liquids for pleasure only. C. difficile toxin is negative. Patient is currently nothing by mouth for replacement of J-tube. Plan for return to [facility] once this is completed. Discharge diagnoses 1 malfunction of J-tube, J-tube replaced with general surgery. 2 severe diarrhea, C. difficile toxin ruled out. 3 recurrent UTI is much better on antibiotics. 4 recurrent aspiration pneumonia 5 severe achalasia: Post myomectomy and lower sphincter procedure 6 chronic diastolic heart failure 7 chronic atrial fibrillation 8 severe PAD 9 urinary retention with mild incontinence with chronic Goodson catheter 10 history of pulmonary embolism 11 unstageable decubitus sacrum and stage II on sacrum. 12 Parkinson disease 13 anemia of chronic disease 14 hyperglycemia 15 COPD 16 severe debility DISCHARGE PLAN Return to [facility]. Impression and plan of care have been directed as dictated by the signing physician. Nora Wylie nurse practitioner acting as scribe for signing physician. Patient Condition at Discharge: Fair Plan - Discharge Summary Discharge Rx Participant: No New Discharge Prescriptions: New Collagenase [Santyl] 1 applic TOPICAL DAILY applic Continue lisinopriL 40 mg PEG/G-TUBE DAILY@0800 Magnesium Hydroxide [Milk of Magnesia Concentrate] 7,200 mg PEG/G-TUBE Q48H PRN PRN Reason: Constipation Ipratropium-Albuterol Nebulize [Duoneb 0.5 mg-3 mg/3 ml Soln] 3 ml INHALATION RT-QID PRN PRN Reason: Shortness Of Breath Or Wheezing bisacodyL [Bisacodyl] 10 mg RECTAL DAILY PRN PRN Reason: Constipation Na Phos,M-B/Na Phos,Di-Ba [Fleet Adult] 133 ml RECTAL DAILY PRN PRN Reason: Constipation Saliva Stimulant Agents Comb.3 [Biotene Moisturizing Mouth] 2 spray MUCOUS MEM DAILY PRN PRN Reason: Dry Mouth Saliva Stimulant Agents Comb.3 [Biotene Moisturizing Mouth] 2 spray MUCOUS MEM TID@0800,1400,2100 Acetaminophen Oral Susp [Tylenol] 650 mg PEG/G-TUBE Q4H PRN PRN Reason: Pain hydrALAZINE HCL [Apresoline] 100 mg PEG/G-TUBE TID@0800,1200,1700 Carbidopa/Levodopa [Parcopa 25-100 mg Odt] 1 tab PEG/G-TUBE TID@0800,1200,1700 Oxybutynin Chloride [Ditropan] 5 mg PEG/G-TUBE BID@0800,1700 Metoprolol Tartrate [Lopressor] 25 mg PEG/G-TUBE BID@0800,1700 Famotidine [Pepcid] 20 mg PEG/G-TUBE BID@0800,2100 Aspirin 81 mg PEG/G-TUBE DAILY@1700 Liquical 30 ml PO TID@0800,1500,2100 Amoxic-Pot Clav 250-62.5MG/5Ml [Augmentin 250-62.5 mg/5 ml Susp.] 12 ml PEG/G-TUBE BID@0800,1700 Furosemide [Lasix] 40 mg PEG/G-TUBE DAILY@0800 Lidocaine 5% Oint [Xylocaine 5% Oint] 1 applic TOPICAL WE Lidocaine 5% Oint [Xylocaine 5% Oint] 1 applic TOPICAL DAILY PRN PRN Reason: wound care Discharge Medication List lisinopriL 40 mg PEG/G-TUBE DAILY@0800 05/13/15 [History] Acetaminophen Oral Susp [Tylenol] 650 mg PEG/G-TUBE Q4H PRN 09/02/20 [History] Aspirin 81 mg PEG/G-TUBE DAILY@1700 09/02/20 [History] Carbidopa/Levodopa [Parcopa 25-100 mg Odt] 1 tab PEG/G-TUBE TID@0800,1200,1700 09/02/20 [History] Famotidine [Pepcid] 20 mg PEG/G-TUBE BID@0800,2100 09/02/20 [History] Ipratropium-Albuterol Nebulize [Duoneb 0.5 mg-3 mg/3 ml Soln] 3 ml INHALATION RT-QID PRN 09/02/20 [History] Magnesium Hydroxide [Milk of Magnesia Concentrate] 7,200 mg PEG/G-TUBE Q48H PRN 09/02/20 [History] Metoprolol Tartrate [Lopressor] 25 mg PEG/G-TUBE BID@0800,1700 09/02/20 [History] Na Phos,M-B/Na Phos,Di-Ba [Fleet Adult] 133 ml RECTAL DAILY PRN 09/02/20 [History] Oxybutynin Chloride [Ditropan] 5 mg PEG/G-TUBE BID@0800,1700 09/02/20 [History] Saliva Stimulant Agents Comb.3 [Biotene Moisturizing Mouth] 2 spray MUCOUS MEM DAILY PRN 09/02/20 [History] Saliva Stimulant Agents Comb.3 [Biotene Moisturizing Mouth] 2 spray MUCOUS MEM TID@0800,1400,2100 09/02/20 [History] bisacodyL [Bisacodyl] 10 mg RECTAL DAILY PRN 09/02/20 [History] hydrALAZINE HCL [Apresoline] 100 mg PEG/G-TUBE TID@0800,1200,1700 09/02/20 [History] Amoxic-Pot Clav 250-62.5MG/5Ml [Augmentin 250-62.5 mg/5 ml Susp.] 12 ml PEG/G- TUBE BID@0800,1700 09/15/20 [History] Furosemide [Lasix] 40 mg PEG/G-TUBE DAILY@0800 09/15/20 [History] Lidocaine 5% Oint [Xylocaine 5% Oint] 1 applic TOPICAL DAILY PRN 09/15/20 [History] Lidocaine 5% Oint [Xylocaine 5% Oint] 1 applic TOPICAL WE 09/15/20 [History] Liquical 30 ml PO TID@0800,1500,2100 09/15/20 [History] Collagenase [Santyl] 1 applic TOPICAL DAILY applic 09/16/20 [Rx] Follow up Appointment(s)/Referral(s): Harry Paredes MD [Primary Care Provider] - 1 Week (At [facility]) Activity/Diet/Wound Care/Special Instructions: patient will be admitted Discharge Disposition: TRANSFER TO SNF/ECF
--- NOTE | 2020-09-16 14:52 | CONS ---
CONSULTATION DATE OF SERVICE: 09/16/2020 REASON FOR CONSULTATION: Dysphagia, history of achalasia. HISTORY OF PRESENT ILLNESS: The patient is a 75-year-old white male resident of [facility] was brought to the emergency room last night after he had a PEG tube that was displaced that was placed at [facility] on July 28, 2020. The patient apparently was diagnosed with esophageal achalasia and had multiple upper endoscopies at [facility] for acute upper GI bleed and recurrent esophageal aspiration and was noted to have dilated esophagus, that is fluid-filled. Finally, because of persistent and recurrent aspiration, he underwent a PEG tube placement on July 28. He was discharged to [facility] and accidentally the PEG tube was pulled out and hence came into the emergency room last night. He subsequently had the replacement PEG tube by the ER physician and had some contrast study performed from the replaced PEG tube but it was noted to be not in good position and was located in the gastric wall rather than the lumen and hence, Surgery has been consulted and the patient is scheduled for G/J-tube replacement this afternoon by Dr. Bianchi. In the meantime patient continues to remain n.p.o. On further questioning he states that he has some dysphagia. He does eat some soft foods occasionally. He denies any abdominal pain. No nausea, no vomiting. PAST MEDICAL HISTORY: Significant for esophageal achalasia, status post multiple upper endoscopies since June and July in 2019 at [facility], status post EGD with PEG/J- tube placement for recurrent aspiration. History of COPD, atrial fibrillation, GERD, hypertension, history of PE in the past. PAST SURGICAL HISTORY: Colon resection, hernia repair, Heather fundoplication, total hip replacement, multiple EGDs. FAMILY HISTORY: Sister had some kind of cancer. Mother had bladder cancer. Father had leukemia. MEDICATIONS: [facility] include lisinopril, Tylenol, aspirin, carbidopa/levodopa, Pepcid, albuterol, metoprolol, Fleet enema p.r.n., Ditropan, hydralazine, Colace, Augmentin, Lasix, lidocaine ointment. ALLERGIES: To CIPRO. REVIEW OF SYSTEMS: Could not be obtained as patient is somewhat sleepy and a poor historian. PHYSICAL EXAMINATION: He is awake. Vital signs are stable. Blood pressure 160/78, pulse rate 91, temperature 98. HEENT: Examination unremarkable. Conjunctivae are pink. Sclerae are nonicteric. Oral cavity no lesions. NECK: No JVD. CHEST: Decreased breath sounds bilaterally. Crackles on both lung bases. ABDOMEN: Soft, replaced PEG tube in place. There was some blood noted at the gastrostomy site. Rest of the abdomen was benign. EXTREMITIES No pedal edema. NEURO: He is awake, but not oriented to name or place. LABS: From yesterday WBC 15.1, hemoglobin 7.9, platelets 645. BUN and creatinine of 47 and 0.8 respectively. Zhang virus PCR is negative. IMPRESSION: 1. History of esophageal achalasia diagnosed on upper endoscopy done in June of 2020, at [facility]. Upper endoscopy done by Dr. Pardo revealed a dilated esophagus which is fluid-filled and normal-appearing stomach. He had a prolonged hospitalization because of aspiration pneumonia and underwent a peg/J-tube placement at that time. 2. PEG tube displacement, PEG/Wallisian tube displacement. It was replaced in the ER yesterday, but position does not appear to be adequate. The patient was seen by Dr. Bianchi, scheduled for a PEG/J-tube replacement in the OR today. 3. Diarrhea. C diff has been ordered. Patient has been on Augmentin for aspiration pneumonia. 4. Congestive heart failure. 5. History of atrial fibrillation and RVR. RECOMMENDATIONS: 1. Agree with PEG tube replacement, PEG/J-tube replacement today. 2. Keep him n.p.o. for now. 3. Await C difficile toxin results. 4. Hold Augmentin because of the severe diarrhea. 5. Continue broad-spectrum antibiotics. 6. Will follow with you closely. Thank you for this consultation. MMODL / IJN: [id number] /
[2020-09-16] MEDS ORDERED: hydrALAZINE HCL 20 MG/ML 1 ML VIAL IVP PRN (14:54)
[2020-09-16] MEDS: FLUCONAZOLE IN NACL,ISO-OSM 200 MG in SALINE 1 100ML.BAG IVPB SCH (16:26)
[2020-09-16] MEDS: ASPIRIN 81 MG PEG/G-TUBE SCH (16:39)
[2020-09-16] MEDS: HYDROmorphone 0.5 MG/0.5 ML SYRINGE IVP PRN (17:03)
[2020-09-16] MEDS: PIPERACILLIN-TAZOBACTAM 3.375 GM in SODIUM CHLORIDE 0.9% 100 ML IVPB SCH (17:21)
[2020-09-16 17:23] LABS: ALT 40 U/L (4-49); AST 65 U/L (17-59); African American GFR (CKD) 88 (>60 ml/min/1.73 sqM); Albumin 2.6 g/dL (3.5-5.0); Albumin/Globulin Ratio 0.7; Alkaline Phosphatase 181 U/L (38-126); Anion Gap 8 mmol/L; Blood Urea Nitrogen 46 mg/dL (9-20); Calcium 9.1 mg/dL (8.4-10.2); Carbon Dioxide 26 mmol/L (22-30); Chloride 117 mmol/L (98-107); Glucose 96 mg/dL (74-99); Magnesium 2.4 mg/dL (1.6-2.3); Non-African American GFR(CKD) 77 (>60 ml/min/1.73 sqM); Phosphorus 5.2 mg/dL (2.5-4.5); Potassium 4.4 mmol/L (3.5-5.1); Sodium 151 mmol/L (137-145); Total Bilirubin 1.3 mg/dL (0.2-1.3); Total Protein 6.6 g/dL (6.3-8.2); Triglycerides 118 mg/dL (<150)
[2020-09-16] MEDS: INSULIN ASPART (NovoLOG) 100 UNIT/ML VIAL SQ SCH ×2 (17:25→21:08)
[2020-09-16] MEDS: FAT EMULSION 20% 250 ML in EMPTY BAG 1 BAG IV SCH (19:20)
[2020-09-16] MEDS: MVI, ADULT NO.4 WITH VIT K 10 ML, TRACE (CONC-1ML/DOSE) 1 ML, POTASSIUM ACETATE 20 MEQ ... IV SCH ×4 (19:21)
[2020-09-16 21:17] LABS: Glucose,Whole Blood 115 mg/dL (75-99)
[2020-09-17 00:04] LABS: Glucose,Whole Blood 121 mg/dL (75-99)
[2020-09-17] MEDS: PIPERACILLIN-TAZOBACTAM 3.375 GM in SODIUM CHLORIDE 0.9% 100 ML IVPB SCH ×3 (00:27→18:35)
[2020-09-17 06:12] LABS: Glucose,Whole Blood 134 mg/dL (75-99)
[2020-09-17 06:43] LABS: Ionized Calcium 5.2 mg/dL (4.5-5.3)
[2020-09-17] MEDS: INSULIN ASPART (NovoLOG) 100 UNIT/ML VIAL SQ SCH ×4 (07:20→20:38)
[2020-09-17] MEDS: IPRATROPIUM-ALBUTEROL 3 ML NEB INHALATION PRN ×2 (07:47→11:08)
--- NOTE | 2020-09-17 08:57 | CONS ---
CONSULTATION DATE OF SERVICE: 09/16/2020 REASON FOR CONSULTATION: A perforated stomach and secondary peritonitis. Antibiotic management. HISTORY OF PRESENT ILLNESS: The patient is a 75-year-old male who was currently a resident of [facility], in this patient who did achalasia of the esophagus requiring a PEG tube for feeding. Apparently the patient's PEG tube got dislodged or may have been partially pulled by the patient himself, for which the patient was sent to [facility] ER yesterday. On arrival to the ER, the patient did have a fever of 101 degrees Fahrenheit. The patient also had a white count of 15.1. The patient did have normal kidney function. He did have influenza PCR which came back negative. The patient did have a KUB x-ray which shows gastrostomy tube in place in good position in the distal stomach. The patient was evaluated by General surgery. He was taken to the OR this afternoon. The patient was noted to have gastric perforation related to PEG tube malposition. He is status post gastrorrhaphy and placement of open gastroduodenal tube. Infectious Disease is consulted for management of antibiotics because of perforated bowel, currently being treated with Zosyn. The patient at time of evaluation remains to be slightly sleepy, lethargic, not a good historian so most information has been extracted from review of the chart. REVIEW OF SYSTEMS: Positive points have been mentioned in HPI. Complete review of systems could not be obtained. PAST MEDICAL HISTORY: Atrial fibrillation, SVT, gastroesophageal reflux disease, hypertension, osteoarthritis, pulmonary embolism and skin cancer. PAST SURGICAL HISTORY: Appendectomy, back surgery, bowel resection, hernia repair. SOCIAL HISTORY: No history of smoking, drinking or drug use. RECENT HISTORY: Mother with history of bladder cancer. Father with history of leukemia. ALLERGIES: CIPROFLOXACIN. MEDICATIONS: The patient is currently on Tylenol, DuoNeb, aspirin, Dulcolax, Zantac, Lasix, hydralazine, Dilaudid, Zestril, Ativan, Lopressor, Narcan, Zofran, Zosyn. PHYSICAL EXAMINATION: On examination blood pressure 124/62 with a pulse of 80, temperature 98.9, T-max 101, he is 97% on 3 L nasal cannula. GENERAL DESCRIPTION: He is an elderly male lying in bed in no distress. No tachypnea or accessory muscles for respiration use. HEENT: Examination shows slight pallor. No scleral icterus. Oral mucosa dry. NECK: Trachea central. No thyromegaly. LUNGS: Unlabored breathing, clear to auscultation anteriorly. No wheeze or crackles. HEART: S1, S2. Regular rate and rhythm. ABDOMEN: Soft, no guarding, no rigidity, no organomegaly. EXTREMITIES: No edema of the feet. SKIN: No skin or mass palpable. NEUROLOGIC: The patient remains to be lethargic, probably oriented x1. LAB: Hemoglobin 7.8, white count 18.1, BUN of 46, creatinine 0.96. Zhang PCR was negative. DIAGNOSTIC IMPRESSION: Patient with secondary peritonitis from a perforated/malposition of the PEG tube in this patient who is status post laparotomy, gastrorrhaphy and gastrotomy tube placement. We will need to cover for enteric gram-negative, mostly aerobes plus or minus yeast. PLAN: 1. The patient is to continue Zosyn 3.75 g q.8 hours. 2. We will add Diflucan 12 mg IV piggyback daily. 3. We will follow on his clinical condition and cultures to further adjust medication if needed. Thank you for this consultation. Will follow this patient along with you. MMODL / IJN: [id number] /
[2020-09-17 09:31] LABS: African American GFR (CKD) 74.7 (60.0-200.0); Albumin 2.5 g/dL (3.80-4.90); Anion Gap 8.3 mmol/L (4.00-12.00); Calcium 8.7 mg/dL (8.7-10.3); Carbon Dioxide 27.7 mmol/L (21.6-31.8); Magnesium 2.3 mg/dL (1.5-2.4); Non-African American GFR(CKD) 64.4 (60.0-200.0); Phosphorus 4.6 mg/dL (2.4-5.1); Potassium 3.8 mmol/L (3.5-5.5)
[2020-09-17] MEDS: PANTOPRAZOLE 40 MG/10 ML VIAL IVP SCH (09:32)
[2020-09-17] MEDS: CARBIDOPA-LEVODOPA 25-100 MG 1 EACH TAB PEG/G-TUBE SCH ×3 (09:38→17:54)
[2020-09-17] MEDS: lisinopriL 20 MG TAB PEG/G-TUBE SCH (09:39)
[2020-09-17] MEDS: METOPROLOL TARTRATE 25 MG TAB PEG/G-TUBE SCH ×2 (09:39→17:54)
[2020-09-17] MEDS: DRY MOUTH SPRAY 44.3 SPRAY/44.3 ML SPRAY MUCOUS MEM SCH ×3 (09:39→21:14)
[2020-09-17] MEDS: OXYBUTYNIN CHLORIDE 5 MG TAB PEG/G-TUBE SCH ×2 (09:40→17:55)
--- NOTE | 2020-09-17 11:16 | P.PN ---
Subjective Progress Note Date: 09/17/20 HISTORY OF PRESENT ILLNESS 75-year-old male with multiple medical problem who is known to have history of chronic A. fib, hypertension, congestive heart failure, history of pulmonary embolism, lower esophageal sphincter dysfunction was hospitalized at [facility] from 07/09 till 08/24/2020 with severe achalasia and esophageal sphincter dysfunction has been able to swallow or drink any water or fluid. His entire workup came back negative for cancer of the esophagus patient was seen and care by Dr. Eastman was cardiothoracic surgeon at [facility] patient had res piratory failure the time along with aspiration pneumonia and severe infection with pulmonary embolism was on mechanical ventilation and extubated. Patient made it to [facility] rehab and a few days later was rushed to the hospital on 09/03/2020 was in till after 1110 for severe dyspnea and shortness of breath with respiratory failure consistent with aspiration pneumonia and congestive heart failure with COPD exacerbation. Patient was treated seen by multiple subspecialists at the time discharged back to [facility] to stay on G-tube feeding the whole time long discussion with the family about possibility of complication including recurrent aspiration pneumonia on recurrent complication related to his tube feeding. Patient apparently has been doing well until today when his J-tube came out potentially or nonintentionally but found in patient's hand in his room with patient was sent to the emergency department and seen and evaluated was post to be seen gastroenterology patient found to be severe dehydration and mild respiratory failure with low-grade temperature and worsening symptoms Dr. Avery lozano was contacted patient need to be hospitalized his J-tube might need to be replace surgically with one of our general surgeon. 09/16: Patient has been afebrile since admission, heart rate 88, blood pressure 160/78, pulse ox 91% on 2 L nasal cannula. Wound care consult has been added with sacral pressure ulcer unstageable and sacral pressure ulcer stage II with recommendations for Santyl, gauze changed daily. General surgery has been consulted for replacement of J-tube and GI has been consulted for achalasia. Patient has been seen by speech therapy was suspected aspiration and recommended only nectar thick liquids for pleasure only. C. difficile toxin is negative. Patient is currently nothing by mouth for replacement of J-tube. Plan for r eturn to [facility] once this is completed. 09/17: There was perforation during patient's procedure yesterday and discharge was held. Patient is on Zosyn and TPN was started. Patient to be nothing by mouth and no tube feedings for [address] Barker was admitted. No anticipated discharge in till probably mid next week. Patient denies any abdominal pain. No nausea. He has been afebrile, heart rate 93, blood pressure 170/75, pulse ox 100% on 3 L nasal cannula. Repeat sodium 154, potassium 3.8, chloride 118, CO2 27.7. BUN 44 and creatinine 1.1. Blood sugars running between 121 and 134. IV fluids will be switched over from 0.9 normal saline to D5 and half normal saline. REVIEW OF SYSTEMS CONSTITUTIONAL: Well-developed no acute respiratory distress. No further documented fevers. EYES: No icterus sclerae, no conjunctivitis. EARS, NOSE, MOUTH, THROAT, and FACE: No sore throat, lymphadenopathy, carotid bruits or deformity. Severe dry mucosa RESPIRATORY: Positive dyspnea and shortness of breath and cough. CARDIOVASCULAR: Positive PND orthopnea and palpitation with no angina lately. GASTROINTEAbd pain, Nausea or vomiting, positive severe diarrhea improving, no active GI bleed with history of anemia. Severe achalasia with lower esophageal sphincter dysfunction. GENITOURINARY: Significant urine output decrease without burning. INTEGUMENT/BREAST: Negative for any muscular injury with mild osteoarthritis.. Severe decub ulcer in the sacral area on the right buttocks area as well. HEMATOLOGIC/LYMPHATIC: Negative for bleed or purpura. Positive anemia MUSCULOSKELTAL: Negative for Myalgia or arthralgia. NEURLOGICAL: No LOC, Sz or syncope, blurred vision dizziness or abnormality.. BEHAVIORAL/PSYCH: Negative. ENDOCRINE: Negative. PHYSICAL EXAMINATION General Appearance: Alert, cooperative, no distress, appears much older than his age Neck HEENT: Supple, no lymphadenopathy, no thyroid enlargement, no carotid bruits. Significant dry mucosa Lungs: Decrease breath sound bilaterally with fine rhonchi specially in the right base with crackles and expiratory wheezes.. Chest Wall: Decrease expansion with deep inspiration no tenderness and no deformity was found on exam, no costochondral pain or discomfort. Heart: Regular rate and rhythm, S1, S2 normal, no murmur, rub or gallop. Back: Symmetric, no curvature, ROM normal, no CVA tenderness. Significant decub ulcer in the sacral area in the right proximal. Abdomen: Soft, non-tender, dressing in place to the mid abdomen. Extremities: Extremities trace edema decreased pulse bilaterally with mild arthritis of both knees right proximal had stage II one time 2 inch size burn to the deep tissue Pulses: 2+ and symmetric. Skin: Skin color, texture, tugor normal, no rashes or lesions. Neurologic: Alert oriented to person and place cranial nerves II through XII intact, no motor deficit, no abnormal balance or gait. ASSESSMENT AND PLAN 1 malfunction of J-tube: Patient was hospitalized be seen GI and general surgery patient most likely will require to have his J-tube replaced with general surgery. GI to see for achalasia. 2 perforated stomach during J-tube replacement. Zosyn, Diflucan IV piggyback, TPN, consult with infectious disease. Patient is nothing by mouth and unable to utilize J-tube for 3 days 3 severe diarrhea, C. difficile toxin ruled out. Patient has been on Augmentin for aspiration pneumonia. 4 recurrent UTI is much better on antibiotics. 5 recurrent aspiration pneumonia: Continue to eat well his head is up continue to supplement most of his diet through his PEG or J-tube. 6 severe achalasia: Post myomectomy and lower sphincter procedure still not doing well symptoms otherwise. 7 recent history of congestive heart failure and fluid overload better so far continue current diuretics. 8 chronic atrial fibrillation: Remain on metoprolol and is not a candidate for an anticoagulation at this point. 9 severe PAD: Will be seen vascular as an outpatient. 10 urinary retention with mild incontinence had a Goodson catheter symptoms are slightly better for now. 11 history of pulmonary embolism could not go back on anticoagulation because of recurrent GI bleed. 12 unstageable decubitus sacrum and stage II on sacrum. Continue local wound care as advised by wound center. 13 Parkinson disease: Still on Sinemet. 14 acute blood loss anemia might require blood transfusion. 15 hyperglycemia: Continue Accu-Chek sliding scales coverage. 16 COPD: Continue patient on DuoNeb nebulizer. 17 severe debility: Patient has been on PTOT which is very limited this point no improvement on his condition. 18 GI prophylaxis: Continue patient on Pepcid. 19 DVT prophylaxis: Knee-high DOTTIE hose no anticoagulation subcutaneous or orally supposed to be done. CODE STATUS: Full code DISCHARGE PLAN Return to [facility]. Impression and plan of care have been directed as dictated by the signing physician. Nora Wylie nurse practitioner acting as scribe for signing physician. Objective - Vital Signs Vital signs: Vital Signs Temp 97.9 F 09/17/20 08:40 Pulse 93 09/17/20 08:40 Resp 24 09/17/20 08:40 BP 170/75 09/17/20 08:40 Pulse Ox 100 09/17/20 08:40 Intake & Output 09/16/20 09/17/20 09/17/20 18:59 06:59 18:59 Intake Total 1090 750 Output Total 860 1000 175 Balance 230 -250 -175 Weight 86.183 kg Intake: IV 850 Intake, IV Titration 240 750 Amount Amino Acid 5%-D15w 1,000 500 ml @ 95 mls/hr IV .BY DURATION ERIC Rx#: [id number] Fat Emulsion 20% 250 ml 250 In Empty Bag 1 bag @ 21 mls/hr IV DAILY@1830 [facility] Rx#:[id number] Sodium Chloride 0.9% 1, 240 000 ml @ 75 mls/hr IV . [id number] [facility] Rx#:[id number] Oral 0 Output: Urine 850 1000 175 Estimated Blood Loss 10 Other: Voiding Method Indwelling Catheter Indwelling Catheter # Voids 1 # Bowel Movements 5 - Labs CBC & Chem 7: 09/15/20 17:13 09/17/20 05:11 Labs: Abnormal Lab Results - Last 24 Hours (Table) 09/16/20 09/16/20 09/16/20 Range/Units 16:37 21:07 23:49 Sodium 151 H (137-145) mmol/L Chloride 117 H (98-107) mmol/L BUN 46 H (9-20) mg/dL POC Glucose (mg/dL) 115 H 121 H (75-99) mg/dL Phosphorus 5.2 H (2.5-4.5) mg/dL Magnesium 2.4 H (1.6-2.3) mg/dL AST 65 H (17-59) U/L Alkaline Phosphatase 181 H (38-126) U/L Albumin 2.6 L (3.5-5.0) g/dL 09/17/20 Range/Units 06:09 Sodium (137-145) mmol/L Chloride (98-107) mmol/L BUN (9-20) mg/dL POC Glucose (mg/dL) 134 H (75-99) mg/dL Phosphorus (2.5-4.5) mg/dL Magnesium (1.6-2.3) mg/dL AST (17-59) U/L Alkaline Phosphatase (38-126) U/L Albumin (3.5-5.0) g/dL
[2020-09-17 11:31] LABS: Glucose,Whole Blood 113 mg/dL (75-99)
--- NOTE | 2020-09-17 11:49 | PN ---
PROGRESS NOTE DATE OF DICTATION: September 17, 2020 The patient is a 75-year-old white male with history of esophageal achalasia, had a PEG tube placement a month ago at [facility]. He was admitted to hospital yesterday after the PEG tube was accidentally pulled out and subsequently was replaced in the emergency room but was not in good position. Hence, he had surgery done. He had exploratory laparotomy done by Dr. Bianchi and was noted to have a gastric perforation, which was repaired and a new PEG tube was placed. The patient recovering right now and remains on broad-spectrum antibiotics for secondary bacterial peritonitis. He is complaining of abdominal pain. No nausea, no vomiting. PHYSICAL EXAMINATION: Blood pressure 130/75, pulse rate 93, temperature 97.9. HEENT examination unremarkable. Conjunctivae pink. Sclerae anicteric. Oral cavity no lesions. Neck no JVD or lymph node enlargement. Chest was clear to auscultation. HEART: Regular rate and rhythm. Abdomen was soft, severe tenderness in the periumbilical area. The new PEG tube in place, looks in good position. EXTREMITIES: No pedal edema. Neuro: He is alert and oriented to name and place. LABS: From today no CBC available. Sodium is 154, potassium 3.8, chloride 118, BUN 44, creatinine 1.1. IMPRESSION: 1. History of esophageal achalasia, status post EGD with PEG tube placement at [facility] a month ago. The patient admitted to the hospital with accidental dislodgement of the PEG tube. He subsequently underwent surgery yesterday by Dr. Bianchi and was noted to have secondary bacterial peritonitis from gastric perforation from dislodged PEG tube, which was repaired and underwent another open PEG tube placement. The patient recovering now and remains on broad-spectrum antibiotics. 2. History of Parkinson's disease. 3. Recent aspiration pneumonia. 4. History of hypertension. 5. History of hyperlipidemia. RECOMMENDATIONS: 1. Continue TPN. 2. Continue broad-spectrum antibiotics. 3. Keep him n.p.o. 4. Further management as per surgery. 5. Will sign off at this time. Please call us if needed. Thank you for this consultation. MMODL / IJN: [id number] /
[2020-09-17] MEDS: COLLAGENASE 250 UNIT/GM OINTMENT 30 GM TUBE TOPICAL SCH (12:40)
[2020-09-17] MEDS: SODIUM CHLORIDE 0.9% 1,000 ML IV SCH (12:47)
[2020-09-17] MEDS: DEXTROSE 5%-0.45% NACL 1,000 ML IV SCH (13:17)
--- NOTE | 2020-09-17 17:03 | P.PN ---
Subjective Progress Note Date: 09/17/20 CHIEF COMPLAINT: Feeding tube malfunction HISTORY OF PRESENT ILLNESS: The patient is a 75-year-old male with malfunction of his feeding tube. He is s/p repair of perforated viscus, placement of open gastrostomy tube. He is resting comfortably. ROS: No reports of nausea and vomiting. No fevers or chills. PHYSICAL EXAM: VITAL SIGNS: Reviewed CONSTITUTIONAL: Well developed and in no acute distress. EYES: Conjuctivae without sclera icterus. Extraocular movements grossly intact. HEAD, EARS, NOSE, THROAT: Moist buccal mucosa. Head is atraumatic, normocephalic. Hears conversational speech. No nasal drainage. NECK: Supple. RESPIRATORY: Non-labored respirations and equal bilateral excursions. CARDIOVASCULAR: Palpable 2+ radial pulses. ABDOMEN: Dressing intact. MUSCULOSKELETAL: No gross deformity of the lower extremities noted. No clubbing. No cyanosis. SKIN: Good skin turgor. Well perfused. NEUROLOGIC: Cranial nerves II through XII grossly intact. No focal or lateralizing signs. CLINICAL LABS: Sodium elevated 154. ASSESSMENT: 1. Perforated viscus 2. Gastrostomy tube placement PLAN: 1. Hold tube feeds due to recent gastric repair with gastrostomy tube placement. 2. Correction of hypernatremia and fluid balance. Objective - Vital Signs Vital signs: Vital Signs Temp 97.6 F 09/17/20 13:28 Pulse 96 09/17/20 13:28 Resp 25 H 09/17/20 16:00 BP 126/60 09/17/20 13:28 Pulse Ox 96 09/17/20 13:28 Intake & Output 09/16/20 09/17/20 09/17/20 18:59 06:59 18:59 Intake Total 1090 750 Output Total 860 1000 175 Balance 230 -250 -175 Weight 86.183 kg 98.203 kg Intake: IV 850 Intake, IV Titration 240 750 Amount Amino Acid 5%-D15w 1,000 500 ml @ 95 mls/hr IV .BY DURATION [facility] Rx#: [id number] Fat Emulsion 20% 250 ml 250 In Empty Bag 1 bag @ 21 mls/hr IV DAILY@1830 [facility] Rx#:[id number] Sodium Chloride 0.9% 1, 240 000 ml @ 75 mls/hr IV . [id number] [facility] Rx#:[id number] Oral 0 Output: Urine 850 1000 175 Estimated Blood Loss 10 Other: Voiding Method Indwelling Catheter Indwelling Catheter # Voids 1 # Bowel Movements 5 - Labs CBC & Chem 7: 09/15/20 17:13 09/17/20 05:11 Labs: Abnormal Lab Results - Last 24 Hours (Table) 09/16/20 09/16/20 09/16/20 Range/Units 16:37 21:07 23:49 Sodium 151 H (137-145) mmol/L Chloride 117 H (98-107) mmol/L BUN 46 H (9-20) mg/dL BUN/Creatinine Ratio (12.00-20.00) Ratio Glucose (70-110) mg/dL POC Glucose (mg/dL) 115 H 121 H (75-99) mg/dL Phosphorus 5.2 H (2.5-4.5) mg/dL Magnesium 2.4 H (1.6-2.3) mg/dL AST 65 H (17-59) U/L Alkaline Phosphatase 181 H (38-126) U/L Albumin 2.6 L (3.5-5.0) g/dL 09/17/20 09/17/20 09/17/20 Range/Units 05:11 06:09 11:20 Sodium 154 H (137-145) mmol/L Chloride 118 H (98-107) mmol/L BUN 44.0 H (9-20) mg/dL BUN/Creatinine Ratio 40.00 H (12.00-20.00) Ratio Glucose 121 H (70-110) mg/dL POC Glucose (mg/dL) 134 H 113 H (75-99) mg/dL Phosphorus (2.5-4.5) mg/dL Magnesium (1.6-2.3) mg/dL AST (17-59) U/L Alkaline Phosphatase (38-126) U/L Albumin 2.50 L (3.5-5.0) g/dL Assessment and Plan (1) Perforated viscus Current Visit: Yes Status: Acute Code(s): R19.8 - OTH SYMPTOMS AND SIGNS INVOLVING THE DGSTV SYS AND ABDOMEN SNOMED Code(s): 050038957 (2) Gastrostomy complication Current Visit: Yes Status: Acute Code(s): K94.20 - GASTROSTOMY COMPLICATION, UNSPECIFIED SNOMED Code(s): 969330443 (3) Gastrostomy tube dysfunction Current Visit: Yes Status: Acute Code(s): K94.23 - GASTROSTOMY MALFUNCTION SNOMED Code(s): 048751943
[2020-09-17 17:16] LABS: Glucose,Whole Blood 124 mg/dL (75-99)
[2020-09-17] MEDS: FLUCONAZOLE IN NACL,ISO-OSM 200 MG in SALINE 1 100ML.BAG IVPB SCH (17:25)
[2020-09-17] MEDS: FUROSEMIDE 10 MG/ML 4 ML VIAL IV PRN (17:26)
[2020-09-17] MEDS: ASPIRIN 81 MG PEG/G-TUBE SCH (17:54)
[2020-09-17] MEDS: FAT EMULSION 20% 250 ML in EMPTY BAG 1 BAG IV SCH (18:23)
[2020-09-17] MEDS: HYDROmorphone 0.5 MG/0.5 ML SYRINGE IVP PRN (21:14)
[2020-09-17] MEDS: 1: MVI, ADULT NO.4 WITH VIT K 10 ML, TRACE (CONC-1ML/DOSE) 1 ML, POTASSIUM ACETATE 20 ME IV SCH ×8 (22:24→22:25)
--- NOTE | 2020-09-17 22:24 | PN ---
PROGRESS NOTE DATE OF SERVICE: 09/17/2020 REASON FOR FOLLOWUP: Sepsis from perforated stomach from dislodged tube. INTERVAL HISTORY: Patient is currently afebrile. The patient was noticed to be more awake and alert today. He is breathing comfortably. Some abdominal pain. No nausea. No chest pain, shortness of breath or cough. PHYSICAL EXAMINATION: Blood pressure 120/73 with a pulse of 89, temperature 99.5. He is 99% on room air. General description is an elderly male lying in bed in no distress. Respiratory system: Unlabored breathing, clear to auscultation anteriorly. Heart S1, S2. Regular rate and rhythm. Abdomen soft. No tenderness. LABS: No new labs have been obtained today. DIAGNOSTIC IMPRESSION AND PLAN: Patient with sepsis from perforated stomach from dislodged , status post laparotomy, gastrorrhaphy and jejunostomy tube placement. The patient is covered with Zosyn and Diflucan. Continue to monitor clinical course closely. MMODL / IJN: [id number] /
[2020-09-17] MEDS: MVI, ADULT NO.4 WITH VIT K 10 ML, TRACE (CONC-1ML/DOSE) 1 ML, POTASSIUM ACETATE 20 MEQ ... IV SCH ×4 (22:43)
[2020-09-17 23:37] LABS: Glucose,Whole Blood 138 mg/dL (75-99)
[2020-09-18] MEDS: PIPERACILLIN-TAZOBACTAM 3.375 GM in SODIUM CHLORIDE 0.9% 100 ML IVPB SCH ×3 (00:17→17:48)
[2020-09-18] MEDS: DEXTROSE 5%-0.45% NACL 1,000 ML IV SCH (00:18)
[2020-09-18] MEDS: HYDROmorphone 0.5 MG/0.5 ML SYRINGE IVP PRN ×2 (03:52→20:29)
[2020-09-18] MEDS: FUROSEMIDE 10 MG/ML 4 ML VIAL IV PRN ×3 (04:58→18:43)
[2020-09-18 05:17] LABS: Glucose,Whole Blood 137 mg/dL (75-99)
[2020-09-18] MEDS: INSULIN ASPART (NovoLOG) 100 UNIT/ML VIAL SQ SCH ×4 (07:03→20:22)
[2020-09-18] MEDS: DRY MOUTH SPRAY 44.3 SPRAY/44.3 ML SPRAY MUCOUS MEM SCH ×3 (07:06→20:23)
[2020-09-18] MEDS: METOPROLOL TARTRATE 25 MG TAB PEG/G-TUBE SCH ×2 (07:15→17:30)
[2020-09-18] MEDS: CARBIDOPA-LEVODOPA 25-100 MG 1 EACH TAB PEG/G-TUBE SCH ×3 (07:15→17:30)
[2020-09-18] MEDS: lisinopriL 20 MG TAB PEG/G-TUBE SCH (07:15)
[2020-09-18] MEDS: OXYBUTYNIN CHLORIDE 5 MG TAB PEG/G-TUBE SCH ×2 (07:15→17:30)
[2020-09-18 09:45] LABS: African American GFR (CKD) 67.2 (60.0-200.0); BUN/Creat Ratio 35.83 Ratio (12.00-20.00); Calcium 8.7 mg/dL (8.7-10.3); Phosphorus 3.1 mg/dL (2.4-5.1); Potassium 3.2 mmol/L (3.5-5.5)
[2020-09-18 09:53] LABS: Basophils # (A) 0.1 k/uL (0-0.2); Basophils % (A) 1 %; Eosinophils # (A) 0.1 k/uL (0-0.7); Eosinophils % (A) 1 %; HCT 24.9 % (39.0-53.0); HGB 7.5 gm/dL (13.0-17.5); Hypochromasia Marked; Lymphocytes # (A) 1.8 k/uL (1.0-4.8); Lymphocytes % (A) 15 %; MCH 27.8 pg (25.0-35.0); MCHC 30.2 g/dL (31.0-37.0); MCV 92.3 fL (80.0-100.0); Mean Platelet Volume 8.3; Monocytes # (A) 0.2 k/uL (0-1.0); Monocytes % (A) 2 %; Neutrophils # (A) 9.6 k/uL (1.3-7.7); Neutrophils % (A) 81 %; Platelet Count 532 k/uL (150-450); RDW 15.6 % (11.5-15.5); WBC 11.9 k/uL (3.8-10.6)
[2020-09-18] MEDS: COLLAGENASE 250 UNIT/GM OINTMENT 30 GM TUBE TOPICAL SCH (10:00)
--- NOTE | 2020-09-18 10:41 | P.PN ---
Subjective Progress Note Date: 09/18/20 HISTORY OF PRESENT ILLNESS 75-year-old male with multiple medical problem who is known to have history of chronic A. fib, hypertension, congestive heart failure, history of pulmonary embolism, lower esophageal sphincter dysfunction was hospitalized at [facility] from 07/09 till 08/24/2020 with severe achalasia and esophageal sphincter dysfunction has been able to swallow or drink any water or fluid. His entire workup came back negative for cancer of the esophagus patient was seen and care by Dr. Eastman was cardiothoracic surgeon at [facility] patient had res piratory failure the time along with aspiration pneumonia and severe infection with pulmonary embolism was on mechanical ventilation and extubated. Patient made it to [facility] rehab and a few days later was rushed to the hospital on 09/03/2020 was in till after 1110 for severe dyspnea and shortness of breath with respiratory failure consistent with aspiration pneumonia and congestive heart failure with COPD exacerbation. Patient was treated seen by multiple subspecialists at the time discharged back to [facility] to stay on G-tube feeding the whole time long discussion with the family about possibility of complication including recurrent aspiration pneumonia on recurrent complication related to his tube feeding. Patient apparently has been doing well until today when his J-tube came out potentially or nonintentionally but found in patient's hand in his room with patient was sent to the emergency department and seen and evaluated was post to be seen gastroenterology patient found to be severe dehydration and mild respiratory failure with low-grade temperature and worsening symptoms Dr. Avery lozano was contacted patient need to be hospitalized his J-tube might need to be replace surgically with one of our general surgeon. 09/16: Patient has been afebrile since admission, heart rate 88, blood pressure 160/78, pulse ox 91% on 2 L nasal cannula. Wound care consult has been added with sacral pressure ulcer unstageable and sacral pressure ulcer stage II with recommendations for Santyl, gauze changed daily. General surgery has been consulted for replacement of J-tube and GI has been consulted for achalasia. Patient has been seen by speech therapy was suspected aspiration and recommended only nectar thick liquids for pleasure only. C. difficile toxin is negative. Patient is currently nothing by mouth for replacement of J-tube. Plan for r eturn to [facility] once this is completed. 09/17: There was perforation during patient's procedure yesterday and discharge was held. Patient is on Zosyn and TPN was started. Patient to be nothing by mouth and no tube feedings for [address] Barker was admitted. No anticipated discharge in till probably mid next week. Patient denies any abdominal pain. No nausea. He has been afebrile, heart rate 93, blood pressure 170/75, pulse ox 100% on 3 L nasal cannula. Repeat sodium 154, potassium 3.8, chloride 118, CO2 27.7. BUN 44 and creatinine 1.1. Blood sugars running between 121 and 134. IV fluids will be switched over from 0.9 normal saline to D5 and half normal saline. 09/18: The patient seems more lethargic today. He is on TPN. Abdomen is soft. He is able to squeeze hands to follow directions. Oral care is needed. Oral mucous membranes are exceptionally dry. He has been afebrile, heart rate 98, blood pressure 154/71, pulse ox 98% on 3 L nasal cannula. Repeat blood work reveals Adriana BC 11.9, hemoglobin 7.5 (baseline hemoglobin is 8.5). Sodium at 153, potassium 3.2, chloride 120, creatinine 1.2. Blood sugar 137. Magnesium 2.0. Potassium will replace with IV potassium of 60 mEq. GI has now signed off his case. He is continued on Zosyn and Diflucan as well as TPN. In clearance from general surgery to start J-tube feedings. Anticipate discharge to [facility] early to mid week. REVIEW OF SYSTEMS CONSTITUTIONAL: Well-developed no acute respiratory distress. No further documented fevers. EYES: No icterus sclerae, no conjunctivitis. EARS, NOSE, MOUTH, THROAT, and FACE: No sore throat, lymphadenopathy, carotid bruits or deformity. Severe dry oral mucous membranes RESPIRATORY: Positive dyspnea and shortness of breath and cough. CARDIOVASCULAR: Positive PND orthopnea and palpitation with no angina lately. GASTROINTEAbd pain, Nausea or vomiting, positive severe diarrhea improving, no active GI bleed with history of anemia. Severe achalasia with lower esophageal sphincter dysfunction. GENITOURINARY: Significant urine output decrease without burning. INTEGUMENT/BREAST: Negative for any muscular injury with mild osteoarthritis.. Severe decub ulcer in the sacral area on the right buttocks area as well. HEMATOLOGIC/LYMPHATIC: Negative for bleed or purpura. Positive anemia MUSCULOSKELTAL: Negative for Myalgia or arthralgia. NEURLOGICAL: No LOC, Sz or syncope, blurred vision dizziness or abnormality.. BEHAVIORAL/PSYCH: Negative. ENDOCRINE: Negative. PHYSICAL EXAMINATION General Appearance: Alert, cooperative, no distress, appears much older than his age. Neck HEENT: Supple, no lymphadenopathy, no thyroid enlargement, no carotid bruits. Significant dry mucosa Lungs: Decrease breath sound bilaterally with fine rhonchi specially in the right base with crackles and expiratory wheezes.. Chest Wall: Decrease expansion with deep inspiration no tenderness and no deformity was found on exam, no costochondral pain or discomfort. Heart: Regular rate and rhythm, S1, S2 normal, no murmur, rub or gallop. Back: Symmetric, no curvature, ROM normal, no CVA tenderness. Significant decub ulcer in the sacral area in the right proximal. Abdomen: Soft, non-tender, dressing in place to the mid abdomen. Extremities: Extremities trace edema decreased pulse bilaterally with mild arthritis of both knees right proximal had stage II one time 2 inch size burn to the deep tissue Pulses: 2+ and symmetric. Skin: Skin color, texture, tugor normal, no rashes or lesions. Neurologic: Alert oriented to person and place cranial nerves II through XII intact, no motor deficit, balance or gait not assessed. ASSESSMENT AND PLAN 1 malfunction of J-tube: Patient was hospitalized be seen GI and general surgery for J-tube replaced with general surgery. GI to see for achalasia. GI is now signed off his case. 2 perforated viscus status post gastric repair during J-tube replacement. Zosyn, Diflucan IV piggyback, TPN, consult with infectious disease appreciated. Patient is nothing by mouth and unable to utilize J-tube for 3 days 3 severe diarrhea, C. difficile toxin ruled out. Patient has been on Augmentin for aspiration pneumonia. 4 recurrent UTI is much better on antibiotics. 5 recurrent aspiration pneumonia: Continue to eat well his head is up continue to supplement most of his diet through his PEG or J-tube. 6 severe achalasia: Post myomectomy and lower sphincter procedure still not doing well symptoms otherwise. 7 recent history of congestive heart failure and fluid overload better so far continue current diuretics. 8 chronic atrial fibrillation: Remain on metoprolol and is not a candidate for an anticoagulation at this point. 9 severe PAD: Will be seen vascular as an outpatient. 10 urinary retention with mild incontinence had a Goodson catheter symptoms are slightly better for now. 11 history of pulmonary embolism could not go back on anticoagulation because of recurrent GI bleed. 12 unstageable decubitus sacrum and stage II on sacrum. Continue local wound care as advised by wound center. 13 Parkinson disease: Still on Sinemet. 14 acute blood loss anemia might require blood transfusion. 15 hyperglycemia: Continue Accu-Chek sliding scales coverage. 16 COPD: Continue patient on DuoNeb nebulizer. 17 severe debility: Patient has been on PTOT which is very limited this point no improvement on his condition. 18 GI prophylaxis: Continue patient on Pepcid. 19 DVT prophylaxis: Knee-high DOTTIE hose no anticoagulation subcutaneous or orally supposed to be done. CODE STATUS: Full code Prognosis is guarded. DISCHARGE PLAN Return to [facility]. Impression and plan of care have been directed as dictated by the signing physician. Nora Wylie nurse practitioner acting as scribe for signing physician. Objective - Vital Signs Vital signs: Vital Signs Temp 97.9 F 09/18/20 07:00 Pulse 98 09/18/20 07:00 Resp 26 H 09/18/20 07:00 BP 154/71 09/18/20 07:00 Pulse Ox 98 09/18/20 07:00 Intake & Output 09/17/20 09/18/20 09/18/20 18:59 06:59 18:59 Intake Total 1550 Output Total 725 400 Balance -725 1150 Weight 91.308 kg Intake: Intake, IV Titration 1550 Amount Amino Acid 5%-D15w 1,000 1300 ml @ 95 mls/hr IV .BY DURATION ERIC Rx#: [id number] Fat Emulsion 20% 250 ml 250 In Empty Bag 1 bag @ 21 mls/hr IV DAILY@1830 ERIC Rx#:[id number] Output: Urine 725 400 Other: Voiding Method Indwelling Catheter - Labs CBC & Chem 7: 09/18/20 05:43 09/18/20 05:43 Labs: Abnormal Lab Results - Last 24 Hours (Table) 09/17/20 09/17/20 09/17/20 Range/Units 11: 17:04 23:32 Sodium (135-145) mmol/L Potassium (3.5-5.5) mmol/L Chloride (96-109) mmol/L BUN (9.0-27.0) mg/dL Est GFR (CKD-EPI)NonAf (60.0-200.0) BUN/Creatinine Ratio (12.00-20.00) Ratio Glucose (70-110) mg/dL POC Glucose (mg/dL) 113 H 124 H 138 H (75-99) mg/dL 09/18/20 09/18/20 Range/Units 05:12 05:43 Sodium 153 H (135-145) mmol/L Potassium 3.2 L (3.5-5.5) mmol/L Chloride 120 H (96-109) mmol/L BUN 43.0 H (9.0-27.0) mg/dL Est GFR (CKD-EPI)NonAf 58.0 L (60.0-200.0) BUN/Creatinine Ratio 35.83 H (12.00-20.00) Ratio Glucose 139 H (70-110) mg/dL POC Glucose (mg/dL) 137 H (75-99) mg/dL
[2020-09-18] MEDS: POTASSIUM CHLORIDE 20 MEQ in WATER FOR INJECTION 1 100ML.BAG IVPB SCH ×3 (11:37→16:20)
[2020-09-18] MEDS: PANTOPRAZOLE 40 MG/10 ML VIAL IVP SCH (11:38)
[2020-09-18] MEDS: 1: MVI, ADULT NO.4 WITH VIT K 10 ML, TRACE (CONC-1ML/DOSE) 1 ML, POTASSIUM ACETATE 20 ME IV SCH ×8 (11:56→17:35)
[2020-09-18 12:52] LABS: Glucose,Whole Blood 106 mg/dL (75-99)
[2020-09-18 14:28] VITALS: BMI 29.7
--- NOTE | 2020-09-18 16:22 | P.PN ---
Subjective Progress Note Date: 09/18/20 CHIEF COMPLAINT: Feeding tube malfunction HISTORY OF PRESENT ILLNESS: The patient is a 75-year-old male with malfunction of his feeding tube. Patient resting. He is groaning without purposeful verbalization. ROS: No reports of nausea and vomiting. No fevers or chills. PHYSICAL EXAM: VITAL SIGNS: Reviewed CONSTITUTIONAL: Well developed and in no acute distress. EYES: Conjuctivae without sclera icterus. Extraocular movements grossly intact. HEAD, EARS, NOSE, THROAT: Moist buccal mucosa. Head is atraumatic, normocephalic. Hears conversational speech. No nasal drainage. NECK: Supple. RESPIRATORY: Non-labored respirations and equal bilateral excursions. CARDIOVASCULAR: Palpable 2+ radial pulses. ABDOMEN: Dressing intact. Gastrostomy site clean dry and intact. MUSCULOSKELETAL: No gross deformity of the lower extremities noted. No clubbing. No cyanosis. SKIN: Good skin turgor. Well perfused. NEUROLOGIC: Cranial nerves II through XII grossly intact. No focal or lateraliz ing signs. CLINICAL LABS: Sodium elevated 153. WBC trending downward over 16,000-11,000. ASSESSMENT: 1. Perforated viscus 2. Gastrostomy tube placement 3. Hypernatremia 4. Dementia PLAN: 1. Continue IV antibiotics for history perforated viscus 2. Dietitian consultation for management of tube feeds 3. Correction of hypernatremia and the fluid balance Objective - Vital Signs Vital signs: Vital Signs Temp 100.6 F H 09/18/20 15:00 Pulse 85 09/18/20 15:00 Resp 18 09/18/20 15:00 BP 186/74 09/18/20 15:00 Pulse Ox 94 L 09/18/20 15:00 Intake & Output 09/17/20 09/18/20 09/18/20 18:59 06:59 18:59 Intake Total 1550 Output Total 725 400 775 Balance -725 1150 -775 Weight 91.308 kg 91.308 kg Intake: Intake, IV Titration 1550 Amount Amino Acid 5%-D15w 1,000 1300 ml @ 95 mls/hr IV .BY DURATION ERIC Rx#: [id number] Fat Emulsion 20% 250 ml 250 In Empty Bag 1 bag @ 21 mls/hr IV DAILY@1830 ERIC Rx#:[id number] Output: Urine 725 400 775 Other: Voiding Method Indwelling Catheter - Labs CBC & Chem 7: 09/18/20 05:43 09/18/20 05:43 Labs: Abnormal Lab Results - Last 24 Hours (Table) 09/17/20 09/17/20 09/18/20 Range/Units 17:04 23:32 05:12 WBC (3.8-10.6) k/uL RBC (4.30-5.90) m/uL Hgb (13.0-17.5) gm/dL Hct (39.0-53.0) % MCHC (31.0-37.0) g/dL RDW (11.5-15.5) % Plt Count (150-450) k/uL Neutrophils # (1.3-7.7) k/uL Sodium (135-145) mmol/L Potassium (3.5-5.5) mmol/L Chloride (96-109) mmol/L BUN (9.0-27.0) mg/dL Est GFR (CKD-EPI)NonAf (60.0-200.0) BUN/Creatinine Ratio (12.00-20.00) Ratio Glucose (70-110) mg/dL POC Glucose (mg/dL) 124 H 138 H 137 H (75-99) mg/dL 09/18/20 09/18/20 09/18/20 Range/Units 05:43 05:43 12:32 WBC 11.9 H (3.8-10.6) k/uL RBC 2.70 L (4.30-5.90) m/uL Hgb 7.5 L (13.0-17.5) gm/dL Hct 24.9 L (39.0-53.0) % MCHC 30.2 L (31.0-37.0) g/dL RDW 15.6 H (11.5-15.5) % Plt Count 532 H (150-450) k/uL Neutrophils # 9.6 H (1.3-7.7) k/uL Sodium 153 H (135-145) mmol/L Potassium 3.2 L (3.5-5.5) mmol/L Chloride 120 H (96-109) mmol/L BUN 43.0 H (9.0-27.0) mg/dL Est GFR (CKD-EPI)NonAf 58.0 L (60.0-200.0) BUN/Creatinine Ratio 35.83 H (12.00-20.00) Ratio Glucose 139 H (70-110) mg/dL POC Glucose (mg/dL) 106 H (75-99) mg/dL Assessment and Plan (1) Perforated viscus Current Visit: Yes Status: Acute Code(s): R19.8 - OTH SYMPTOMS AND SIGNS INVOLVING THE DGSTV SYS AND ABDOMEN SNOMED Code(s): 212100785 (2) Gastrostomy complication Current Visit: Yes Status: Acute Code(s): K94.20 - GASTROSTOMY COMPLICATION, UNSPECIFIED SNOMED Code(s): 589629120 (3) Gastrostomy tube dysfunction Current Visit: Yes Status: Acute Code(s): K94.23 - GASTROSTOMY MALFUNCTION SNOMED Code(s): 082530114 (4) Hypernatremia Current Visit: Yes Status: Acute Code(s): E87.0 - HYPEROSMOLALITY AND HYPERNATREMIA SNOMED Code(s): 028418501 (5) Dysphagia Current Visit: No Status: Acute Code(s): R13.10 - DYSPHAGIA, UNSPECIFIED SNOMED Code(s): 66805778
[2020-09-18] MEDS: FLUCONAZOLE IN NACL,ISO-OSM 200 MG in SALINE 1 100ML.BAG IVPB SCH (16:36)
[2020-09-18 17:19] LABS: Glucose,Whole Blood 97 mg/dL (75-99)
[2020-09-18] MEDS: ASPIRIN 81 MG PEG/G-TUBE SCH (17:30)
[2020-09-18] MEDS: FAT EMULSION 20% 250 ML in EMPTY BAG 1 BAG IV SCH (18:40)
[2020-09-18] MEDS ORDERED: ACETAMINOPHEN SUPPOSITORY 650 MG SUPP RECTAL PRN (21:24)
[2020-09-19] MEDS ORDERED: 1: MVI, ADULT NO.4 WITH VIT K 10 ML, TRACE (CONC-1ML/DOSE) 1 ML, POTASSIUM ACETATE 40 ME IV SCH ×5
[2020-09-19] MEDS: PIPERACILLIN-TAZOBACTAM 3.375 GM in SODIUM CHLORIDE 0.9% 100 ML IVPB SCH ×2 (00:27→07:36)
[2020-09-19] MEDS: FUROSEMIDE 10 MG/ML 4 ML VIAL IV PRN (03:14)
--- NOTE | 2020-09-19 03:21 | PN ---
PROGRESS NOTE DATE OF SERVICE: 09/18/2020 REASON FOR FOLLOWUP: Secondary peritonitis from perforated stomach. INTERVAL HISTORY: The patient did have a fever of 100.6 this afternoon; however, the patient is more awake and alert. He is breathing comfortably. No chest pain. Some cough. No worsening abdominal pain. No vomiting or diarrhea reported by nursing staff. PHYSICAL EXAMINATION: Blood pressure 186/74 with a pulse of 85, temperature is 100.6. He is 94% on room air. General description is an elderly male lying in bed in no distress. RESPIRATORY SYSTEM: Unlabored breathing, decreased intensity of breath sounds. No wheeze. HEART: S1, S2. Regular rate and rhythm. ABDOMEN: Soft, no tenderness. LABS: Hemoglobin 7.5, white count 11.9. Creatinine is 1.2. No cultures. DIAGNOSTIC IMPRESSION AND PLAN: Patient with secondary peritonitis from perforated stomach from a gastric tube, status post laparotomy, gastrorrhaphy and open jejunostomy tube. The patient is covered with Zosyn and Diflucan. Did have low-grade fever, will monitor closely. Continue with supportive care. MMODL / IJN: [id number] /
[2020-09-19] MEDS: DEXTROSE 5%-0.45% NACL 1,000 ML IV SCH (04:27)
[2020-09-19 05:54] VITALS: BP 144/69; PULSE 78; TEMP 98.8
[2020-09-19 06:12] LABS: Glucose,Whole Blood 138 mg/dL (75-99)
[2020-09-19 06:45] LABS: Basophils # (A) 0.1 k/uL (0-0.2); Basophils % (A) 1 %; Eosinophils # (A) 0.2 k/uL (0-0.7); Eosinophils % (A) 1 %; HCT 25.3 % (39.0-53.0); HGB 7.8 gm/dL (13.0-17.5); Hypochromasia Marked; Lymphocytes # (A) 2.5 k/uL (1.0-4.8); Lymphocytes % (A) 21 %; MCH 27.7 pg (25.0-35.0); MCHC 30.7 g/dL (31.0-37.0); MCV 90.2 fL (80.0-100.0); Mean Platelet Volume 8.4; Monocytes # (A) 0.2 k/uL (0-1.0); Monocytes % (A) 1 %; Neutrophils # (A) 8.9 k/uL (1.3-7.7); Neutrophils % (A) 74 %; Platelet Count 508 k/uL (150-450); RDW 15.7 % (11.5-15.5)
[2020-09-19 06:54] LABS: Glucose,Whole Blood 142 mg/dL (75-99)
[2020-09-19] MEDS: INSULIN ASPART (NovoLOG) 100 UNIT/ML VIAL SQ SCH (07:35)
[2020-09-19] MEDS: DRY MOUTH SPRAY 44.3 SPRAY/44.3 ML SPRAY MUCOUS MEM SCH (07:40)
[2020-09-19] MEDS: METOPROLOL TARTRATE 25 MG TAB PEG/G-TUBE SCH (07:43)
[2020-09-19] MEDS: lisinopriL 20 MG TAB PEG/G-TUBE SCH (07:43)
[2020-09-19] MEDS: OXYBUTYNIN CHLORIDE 5 MG TAB PEG/G-TUBE SCH (07:43)
[2020-09-19] MEDS: CARBIDOPA-LEVODOPA 25-100 MG 1 EACH TAB PEG/G-TUBE SCH (07:43)
[2020-09-19] MEDS ORDERED: FUROSEMIDE 10 MG/ML 4 ML VIAL IV STA (08:15)
[2020-09-19] MEDS ORDERED: metroNIDAZOLE-NS PMX 500 MG in SALINE 1 100ML.BAG IVPB SCH (08:30)
[2020-09-19 09:47] LABS: Anion Gap 8.2 mmol/L (4.00-12.00); Calcium 8.7 mg/dL (8.7-10.3); Carbon Dioxide 25.8 mmol/L (21.6-31.8); Magnesium 1.9 mg/dL (1.5-2.4); Non-African American GFR(CKD) 52.6 (60.0-200.0); Phosphorus 2.9 mg/dL (2.4-5.1); Potassium 3.4 mmol/L (3.5-5.5)
[2020-09-19] MEDS: HYDROmorphone 0.5 MG/0.5 ML SYRINGE IVP PRN (10:29)
--- NOTE | 2020-09-19 10:41 | P.DS ---
Providers Date of admission: 09/16/20 15:46 Expected date of discharge: 09/19/20 Attending physician: Harry Paredes Consults: 09/16/20 07:55 Consult Physician Routine Consulting Provider: Drew Bianchi Consult Reason/Comments: J tube Do you want consulting provider notified?: Yes 09/16/20 08:08 Consult Physician Routine Consulting Provider: Madeleine Rodrigez Consult Reason/Comments: achalasia Do you want consulting provider notified?: Yes 09/16/20 15:00 Consult Physician Routine Consulting Provider: Jaja Barker Consult Reason/Comments: fever with wounds Do you want consulting provider notified?: Yes [facility] Course: HISTORY OF PRESENT ILLNESS 75-year-old male with multiple medical problem who is known to have history of chronic A. fib, hypertension, congestive heart failure, history of pulmonary embolism, lower esophageal sphincter dysfunction was hospitalized at [facility] from 07/09 till 08/24/2020 with severe achalasia and esophageal sphincter dysfunction has been able to swallow or drink any water or fluid. His entire workup came back negative for cancer of the esophagus patient was seen and care by Dr. Eastman was cardiothoracic surgeon at [facility] patient had respiratory failure the time along with aspiration pneumonia and severe infection with pulmonary embolism was on mechanical ventilation and extubated. Patient made it to [facility] rehab and a few days later was rushed to the hospital on 09/03/2020 was in till after 1110 for severe dyspnea and shortness of breath with respiratory failure consistent with aspiration pneumonia and congestive heart failure with COPD exacerbation. Patient was treated seen by multiple subspecialists at the time discharged back to [facility] to stay on G-tube feeding the whole time long discussion with the family about possibility of complication including recurrent aspiration pneumonia on recurrent complication related to his tube feeding. Patient apparently has been doing well until today when his J-tube came out potentially or nonintentionally but found in patient's hand in his room with patient was sent to the emergency department and seen and evaluated was post to be seen gastroenterology patient found to be severe dehydration and mild respiratory failure with low-grade temperature and worsening symptoms Dr. Varela pulmonary was contacted patient need to be hospitalized his J-tube might need to be replace surgically with one of our general surgeon. 09/16: Patient has been afebrile since admission, heart rate 88, blood pressure 160/78, pulse ox 91% on 2 L nasal cannula. Wound care consult has been added with sacral pressure ulcer unstageable and sacral pressure ulcer stage II with recommendations for Santyl, gauze changed daily. General surgery has been consulted for replacement of J-tube and GI has been consulted for achalasia. Patient has been seen by speech therapy was suspected aspiration and recommended only nectar thick liquids for pleasure only. C. difficile toxin is negative. Patient is currently nothing by mouth for replacement of J-tube. Plan for return to [facility] once this is completed. 09/17: There was perforation during patient's procedure yesterday and discharge was held. Patient is on Zosyn and TPN was started. Patient to be nothing by mouth and no tube feedings for [address] Barker was admitted. No anticipated discharge in till probably mid next week. Patient denies any abdominal pain. No nausea. He has been afebrile, heart rate 93, blood pressure 170/75, pulse ox 100% on 3 L nasal cannula. Repeat sodium 154, potassium 3.8, chloride 118, CO2 27.7. BUN 44 and creatinine 1.1. Blood sugars running between 121 and 134. IV fluids will be switched over from 0.9 normal saline to D5 and half normal saline. 09/18: The patient seems more lethargic today. He is on TPN. Abdomen is soft. He is able to squeeze hands to follow directions. Oral care is needed. Oral mucous membranes are exceptionally dry. He has been afebrile, heart rate 98, blood pressure 154/71, pulse ox 98% on 3 L nasal cannula. Repeat blood work reveals Adriana BC 11.9, hemoglobin 7.5 (baseline hemoglobin is 8.5). Sodium at 153, potassium 3.2, chloride 120, creatinine 1.2. Blood sugar 137. Magnesium 2.0. Potassium will replace with IV potassium of 60 mEq. GI has now signed off his case. He is continued on Zosyn and Diflucan as well as TPN. In clearance from general surgery to start J-tube feedings. Anticipate discharge to [facility] early to mid week. 09/19: Patient is now on 100% NRB mask with PO 95-99%, RR 36-40, HR 78, T [id number]. Patient's lungs are moist and full crackles. One dose of IV Lasix will be given. Dr. Paredes spoke with patient's over the phone and asked her to come into the hospital to evaluate him with recommendations for hospice care due to his very poor condition and prognosis. Discussed also case with the patient's at the bedside and she is agreeable to move forward with hospice care and would like patient go to the [facility]. Referral has been placed and patient transferred once all arrangements are completed. Patient will remain nothing by mouth and J-tube is not able to be utilized. DISCHARGE DIAGNOSES 1 malfunction of J-tube 2 perforated viscus status post gastric repair during J-tube replacement. 3 severe diarrhea, C. difficile toxin ruled out. 4 recurrent UTI 5 recurrent aspiration pneumonia 6 severe achalasia: Post myomectomy and lower sphincter procedure 7 acute on chronic diastolic heart failure 8 chronic atrial fibrillation 9 severe PAD 10 urinary retention with mild incontinence with Goodson catheter 11 history of pulmonary embolism 12 unstageable decubitus sacrum and stage II on sacrum. 13 Parkinson disease 14 acute blood loss anemia 15 hyperglycemia 16 COPD 17 severe debility DISCHARGE PLAN Return to [facility]. Impression and plan of care have been directed as dictated by the signing physician. Nora Wylie nurse practitioner acting as scribe for signing physician. Patient Condition at Discharge: Poor Plan - Discharge Summary Discharge Rx Participant: No New Discharge Prescriptions: New Collagenase [Santyl] 1 applic TOPICAL DAILY applic Discontinued lisinopriL 40 mg PEG/G-TUBE DAILY@0800 Magnesium Hydroxide [Milk of Magnesia Concentrate] 7,200 mg PEG/G-TUBE Q48H PRN PRN Reason: Constipation Ipratropium-Albuterol Nebulize [Duoneb 0.5 mg-3 mg/3 ml Soln] 3 ml INHALATION RT-QID PRN PRN Reason: Shortness Of Breath Or Wheezing bisacodyL [Bisacodyl] 10 mg RECTAL DAILY PRN PRN Reason: Constipation Na Phos,M-B/Na Phos,Di-Ba [Fleet Adult] 133 ml RECTAL DAILY PRN PRN Reason: Constipation Saliva Stimulant Agents Comb.3 [Biotene Moisturizing Mouth] 2 spray MUCOUS MEM DAILY PRN PRN Reason: Dry Mouth Saliva Stimulant Agents Comb.3 [Biotene Moisturizing Mouth] 2 spray MUCOUS MEM TID@0800,1400,2100 Acetaminophen Oral Susp [Tylenol] 650 mg PEG/G-TUBE Q4H PRN PRN Reason: Pain hydrALAZINE HCL [Apresoline] 100 mg PEG/G-TUBE TID@0800,1200,1700 Carbidopa/Levodopa [Parcopa 25-100 mg Odt] 1 tab PEG/G-TUBE TID@0800,1200,1700 Oxybutynin Chloride [Ditropan] 5 mg PEG/G-TUBE BID@0800,1700 Metoprolol Tartrate [Lopressor] 25 mg PEG/G-TUBE BID@0800,1700 Famotidine [Pepcid] 20 mg PEG/G-TUBE BID@0800,2100 Aspirin 81 mg PEG/G-TUBE DAILY@1700 Liquical 30 ml PO TID@0800,1500,2100 Amoxic-Pot Clav 250-62.5MG/5Ml [Augmentin 250-62.5 mg/5 ml Susp.] 12 ml PEG/G-TUBE BID@0800,1700 Furosemide [Lasix] 40 mg PEG/G-TUBE DAILY@0800 Lidocaine 5% Oint [Xylocaine 5% Oint] 1 applic TOPICAL WE Lidocaine 5% Oint [Xylocaine 5% Oint] 1 applic TOPICAL DAILY PRN PRN Reason: wound care Discharge Medication List Collagenase [Santyl] 1 applic TOPICAL DAILY applic 09/16/20 [Rx] Follow up Appointment(s)/Referral(s): Harry Paredes MD [Primary Care Provider] - As Needed () [facility] Visiting Nurse, [NON-STAFF] - As Needed ([facility]) Patient Instructions/Handouts: Hospice (DC), Hospice Care (GEN) Activity/Diet/Wound Care/Special Instructions: patient will be admitted Discharge Disposition: DISCH TO HOSPICE MED FACILTY
--- NOTE | 2020-09-19 10:57 | P.PN ---
Subjective Progress Note Date: 09/19/20 CHIEF COMPLAINT: Feeding tube malfunction HISTORY OF PRESENT ILLNESS: The patient is a 75-year-old male with malfunction of his feeding tube. Patient has worsening respiratory status currently on 15 L. His admitting physician is consulted hospice. Apparently patient will be discharged later today to the hospice house. PHYSICAL EXAM: VITAL SIGNS: Reviewed. GENERAL: Well-developed in no acute distress. HEENT: No sclera icterus. Extraocular movements grossly intact. Moist buccal mucosa. Head is atraumatic, normocephalic. ABDOMEN: Soft. Nondistended. Nontender. NEUROLOGIC: Patient is awake ASSESSMENT: 1. Gastric perforation related to PEG tube malposition status post exploratory laparotomy, gastrorrhaphy and placement of open gastrostomy tube 2. Gastrostomy tube placement 3. Hypernatremia 4. Dementia PLAN: -Agree with comfort care and hospice Physician Traffic Incident Management Manager note has been reviewed by physician. Signing provider agrees with the documented findings, assessment, and plan of care. Objective - Vital Signs Vital signs: Vital Signs Temp 98.8 F 09/19/20 04:13 Pulse 78 09/19/20 04:13 Resp 36 H 09/19/20 04:13 BP 144/69 09/19/20 04:13 Pulse Ox 99 09/19/20 04:13 Intake & Output 09/18/20 09/19/20 09/19/20 18:59 06:59 18:59 Intake Total 450 Output Total 2024 1309 Balance -2024 Weight 91.308 kg Intake: Intake, IV Titration 450 Amount Amino Acid 5%-D15w 1,000 200 ml @ 95 mls/hr IV .BY DURATION ERIC Rx#: [id number] Fat Emulsion 20% 250 ml 250 In Empty Bag 1 bag @ 21 mls/hr IV DAILY@1830 ERIC Rx#:[id number] Output: Urine 2024 131 Other: Voiding Method Indwelling Catheter Indwelling Catheter - Labs CBC & Chem 7: 09/19/20 06:10 09/19/20 06:10 Labs: Abnormal Lab Results - Last 24 Hours (Table) 09/18/20 09/19/20 09/19/20 Range/Units 12:32 06:10 06:10 WBC 12.0 H (3.8-10.6) k/uL RBC 2.80 L (4.30-5.90) m/uL Hgb 7.8 L (13.0-17.5) gm/dL Hct 25.3 L (39.0-53.0) % MCHC 30.7 L (31.0-37.0) g/dL RDW 15.7 H (11.5-15.5) % Plt Count 508 H (150-450) k/uL Neutrophils # 8.9 H (1.3-7.7) k/uL Sodium 152 H (135-145) mmol/L Potassium 3.4 L (3.5-5.5) mmol/L Chloride 118 H (96-109) mmol/L BUN 52.0 H (9.0-27.0) mg/dL Est GFR (CKD-EPI)NonAf 52.6 L (60.0-200.0) BUN/Creatinine Ratio 40.00 H (12.00-20.00) Ratio Glucose 133 H (70-110) mg/dL POC Glucose (mg/dL) 106 H (75-99) mg/dL 09/19/20 09/19/20 Range/Units 06:11 06:52 WBC (3.8-10.6) k/uL RBC (4.30-5.90) m/uL Hgb (13.0-17.5) gm/dL Hct (39.0-53.0) % MCHC (31.0-37.0) g/dL RDW (11.5-15.5) % Plt Count (150-450) k/uL Neutrophils # (1.3-7.7) k/uL Sodium (135-145) mmol/L Potassium (3.5-5.5) mmol/L Chloride (96-109) mmol/L BUN (9.0-27.0) mg/dL Est GFR (CKD-EPI)NonAf (60.0-200.0) BUN/Creatinine Ratio (12.00-20.00) Ratio Glucose (70-110) mg/dL POC Glucose (mg/dL) 138 H 142 H (75-99) mg/dL
[2020-09-19] MEDS ORDERED: POTASSIUM CHLORIDE 20 MEQ in WATER FOR INJECTION 1 100ML.BAG IVPB SCH (11:00)
[2020-09-19 11:25] VITALS: RESP 40
[2020-09-21] MEDS ORDERED: LIDOCAINE 5% TOPICAL SCH (19:10)
== END 2020-09-19 11:40 | disposition hospice, inpatient (51) | DRG 326 ==
LOC: EC 13:56 → 5NMEDONC 18:40 → OBSVTOIN 09-16 15:46
PROVIDERS: ADMIT Internal Medicine Geriatric Medicine; ATTEND Internal Medicine Geriatric Medicine
PROC: 0DH63UZ Insertion of Feeding Device into Stomach, Percutaneous Approach (ICD-10-PCS; 2020-09-15)
PROC: 0DP60UZ Removal of Feeding Device from Stomach, Open Approach (ICD-10-PCS; principal; 2020-09-16 10:15)
PROC: 0DH60UZ Insertion of Feeding Device into Stomach, Open Approach (ICD-10-PCS; principal; 2020-09-16 10:15)
PROC: 0DQ60ZZ Repair Stomach, Open Approach (ICD-10-PCS; principal; 2020-09-16 10:15)
PROC: 3E0G76Z Introduction of Nutritional Substance into Upper GI, Via Natural or Artificial Opening (ICD-10-PCS; principal; 2020-09-16 10:15)
DX: K94.29 Other complications of gastrostomy (principal); K65.9 Peritonitis, unspecified; I50.33 Acute on chronic diastolic (congestive) heart failure; J69.0 Pneumonitis due to inhalation of food and vomit; S36.438A Laceration of other part of small intestine, initial encounter; D62 Acute posthemorrhagic anemia; E87.0 Hyperosmolality and hypernatremia; I48.20 Chronic atrial fibrillation, unspecified; N39.0 Urinary tract infection, site not specified; Y83.8 Other surgical procedures as the cause of abnormal reaction of the patient, or of later complication, without mention of misadventure at the time of the procedure; D63.8 Anemia in other chronic diseases classified elsewhere; E78.5 Hyperlipidemia, unspecified; E86.0 Dehydration; F02.80 Dementia in other diseases classified elsewhere, unspecified severity, without behavioral disturbance, psychotic disturbance, mood disturbance, and anxiety; G20 Parkinson's disease; H91.90 Unspecified hearing loss, unspecified ear; I11.0 Hypertensive heart disease with heart failure; J44.9 Chronic obstructive pulmonary disease, unspecified; Z20.828 Contact with and (suspected) exposure to other viral communicable diseases; Z66 Do not resuscitate; Z51.5 Encounter for palliative care; K22.0 Achalasia of cardia; K22.8 Other specified diseases of esophagus; K94.23 Gastrostomy malfunction; L89.150 Pressure ulcer of sacral region, unstageable; L89.152 Pressure ulcer of sacral region, stage 2; I73.9 Peripheral vascular disease, unspecified; R33.9 Retention of urine, unspecified; R32 Unspecified urinary incontinence; R73.9 Hyperglycemia, unspecified; R53.81 Other malaise; Z80.6 Family history of leukemia; Z80.7 Family history of other malignant neoplasms of lymphoid, hematopoietic and related tissues; Z80.52 Family history of malignant neoplasm of bladder; Z88.1 Allergy status to other antibiotic agents; Z87.01 Personal history of pneumonia (recurrent); Z87.440 Personal history of urinary (tract) infections; M19.90 Unspecified osteoarthritis, unspecified site; Z98.1 Arthrodesis status; Z85.828 Personal history of other malignant neoplasm of skin; Z79.82 Long term (current) use of aspirin; Z79.899 Other long term (current) drug therapy; D75.9 Disease of blood and blood-forming organs, unspecified; Z87.19 Personal history of other diseases of the digestive system; Z90.49 Acquired absence of other specified parts of digestive tract; Z96.649 Presence of unspecified artificial hip joint; Z85.038 Personal history of other malignant neoplasm of large intestine; Z86.711 Personal history of pulmonary embolism; Z98.42 Cataract extraction status, left eye; Z98.41 Cataract extraction status, right eye; Z96.1 Presence of intraocular lens
CPT/HCPCS: 36415; 71045; 74018; 80048; 80053; 82040; 82330; 83735; 84100; 84478; 85025; 85610; 85730; 86850; 86900; 86901; 87324; 87635; 94640; 94760; 96360; 99284